=== PATIENT | female | born 1950 | race Caucasian/White ===

== ENCOUNTER → 2018-02-12 16:40 | Outpatient (CLI) | payer BC, SELFPAY ==
--- NOTE | 2018-02-12 16:44 | BI_ITS ---
MAMMOGRAPHY - BILATERAL SCREENING REASON FOR EXAM: Female, 67 years old. Routine annual screening examination. PERTINENT HISTORY: Aunt with breast cancer. Remote right excisional breast biopsies. TECHNIQUE: Digital bilateral breast gerry (3D mammographic acquisition) in the CC and MLO projections. 2-D mediolateral oblique (MLO) and craniocaudad (CC) views of both breasts were obtained. CAD: Full Field Digital Mammography with Computer Added Detection was performed. COMPARISON: Comparison is made with prior study dated June 11, 2016 and April 05, 2015. FINDINGS: Breast Composition: The breasts are heterogeneously dense, which may obscure small masses. There are no dominant masses or suspicious calcifications. No other significant abnormalities are identified. There has been no significant change since the prior study. BI/SCREENING MAMM (CAD), BILAT IMPRESSION: Stable bilateral screening mammogram. Yearly follow-up mammogram recommended. (A) ASSESSMENT CATEGORY: BIRADS Category 1: Negative. A letter regarding these results will be sent to the patient by the facility within 30 days. Approximately 10% of breast cancers are not detected by mammography. A normal mammogram should not delay biopsy of a clinically suspicious abnormality. [id number] Electronically Signed: Evaristo James MD at 14:38 EDT Tel [phone], Service support ,
== END ==
PROVIDERS: Family Provider Family Medicine; PCP Family Medicine; Visit Provider Family Medicine
DX: Z12.31 Encounter for screening mammogram for malignant neoplasm of breast (principal); M81.0 Age-related osteoporosis without current pathological fracture
CPT/HCPCS: 77063; 77067

== ENCOUNTER → 2018-02-25 08:11 | Outpatient (CLI) | payer BC, SELFPAY ==
--- NOTE | 2018-02-25 08:17 | BD_ITS ---
STUDY: DUAL ENERGY X-RAY ABSORPTIOMETRY / DXA REASON FOR EXAM: Female, 67 years old. The patient is postmenopausal. Loss of height. TECHNIQUE: Bone Mineral Density (BMD) measurements of lumbar spine and bilateral hips were obtained. COMPARISON: None. FINDINGS: Lumbar Spine (L1-L4): g/cm2 (1.004) / T-score (-1.3) / Z-score (0.3) Findings are suggestive of osteopenia with a moderate fracture risk. Left Femur Total: g/cm2 (1.108) / T-score (0.8) / Z-score (2.1) Left Femoral Neck: g/cm2 (1.088) / T-score (0.4) / Z-score (1.9) Right Femur Total: g/cm2 (1.171) / T-score (1.3) / Z-score (2.6) Right Femoral Neck: g/cm2 (1.106) / T-score (0.5) / Z-score (2.0) BD/Dexa Bone Density Study IMPRESSION: The patient is considered osteopenic at the level of the lumbar spine as outlined below according to World Ramin Organization (WHO) criteria with a moderate fracture risk. Reference Information: The T-score is the number of standard deviations above or below the standard which is normal for young adults at their peak bone mineral density. The World Health Organization (WHO) interprets the T-scores as follows: Above -1 Normal bone density Between -1 and -2.5 Osteopenia Equal to / or below -2.5 Osteoporosis As a practical clinical guideline, osteopenia may be graded as follows: Mild -1 through -1.5 Moderate -1.6 through -2.0 Severe -2.1 through -2.4 The Z-score is the number of standard deviations above or below age-matched controls. A Z-score of less than -1.5 would be considered abnormal. References: 1. NIH Osteoporosis and Related Bone Diseases http://www.osteo.org 2. International Society for Clinical Densitometry http://www.iscd.org 3. National Osteoporosis Foundation http://www.nof.org Electronically Signed: Evaristo James MD at 12:22 EDT Tel [phone], Service support ,
== END ==
PROVIDERS: Family Provider Family Medicine; PCP Family Medicine; Referring Provider Family Medicine; Visit Provider Family Medicine
DX: M81.0 Age-related osteoporosis without current pathological fracture (principal); M85.88 Other specified disorders of bone density and structure, other site
CPT/HCPCS: 77080

== ENCOUNTER → 2019-03-09 06:51 | Outpatient (CLI) | payer BC, SELFPAY ==
--- NOTE | 2019-03-09 06:54 | BI_ITS ---
MAMMOGRAPHY - BILATERAL SCREENING REASON FOR EXAM: Female, 68 years old. Routine annual screening examination. PERTINENT HISTORY: Aunts with breast cancer. TECHNIQUE: Digital bilateral breast karsten (3D mammographic acquisition) in the CC and MLO projections. 2-D mediolateral oblique (MLO) and craniocaudad (CC) views of both breasts were obtained. CAD: Full Field Digital Mammography with Computer Added Detection was performed. COMPARISON: Comparison is made with prior examination dated February 12, 2018 and January 09, 2017. FINDINGS: Breast Composition: The breasts are heterogeneously dense, which may obscure small masses. There are no dominant masses or suspicious calcifications. No other significant abnormalities are identified. There has been no significant change since the prior study. BI/SCREEN MAMM (CAD) W/KARSTEN BILAT IMPRESSION: Stable bilateral screening mammogram. Yearly follow-up mammogram recommended. (A) ASSESSMENT CATEGORY: BIRADS Category 1: Negative. A letter regarding these results will be sent to the patient by the facility within 30 days. Approximately 10% of breast cancers are not detected by mammography. A normal mammogram should not delay biopsy of a clinically suspicious abnormality. [id number] Electronically Signed: Evaristo James, at 8:59 EST , Service support ,
== END ==
PROVIDERS: Family Provider Family Medicine; PCP Family Medicine; Referring Provider Family Medicine; Visit Provider Family Medicine
DX: Z12.31 Encounter for screening mammogram for malignant neoplasm of breast (principal)
CPT/HCPCS: 77063; 77067

== ENCOUNTER → 2022-03-27 | Outpatient (CLI) | payer MEDICARE, SELFPAY ==
--- NOTE | 2022-03-27 13:35 | BI_ITS ---
MAMMOGRAPHY - BILATERAL SCREENING REASON FOR EXAM: Female, 71 years old. Routine annual screening examination. PERTINENT HISTORY: Aunts with breast cancer. Remote history of right excisional breast biopsies. TECHNIQUE: Digital bilateral breast karsten (3D mammographic acquisition) in the CC and MLO projections. 2-D mediolateral oblique (MLO) and craniocaudad (CC) views of both breasts were obtained. CAD: Full Field Digital Mammography with Computer Added Detection was performed. COMPARISON: 03/09/2019, 02/12/2018. FINDINGS: Breast Composition: The breasts are heterogeneously dense, which may obscure small masses. There are no dominant masses or suspicious calcifications. No other significant abnormalities are identified. There has been no significant change since the prior study. BI/SCRN MAMM (CAD)W/KARSTEN BILAT IMPRESSION: Stable bilateral screening mammogram. Yearly follow-up mammogram recommended. (A) ASSESSMENT CATEGORY: BIRADS Category 1: Negative. A letter regarding these results will be sent to the patient by the facility within 30 days. Approximately 10% of breast cancers are not detected by mammography. A normal mammogram should not delay biopsy of a clinically suspicious abnormality. Electronically Signed: Viktor Rivera, at 16:19 EST ,
== END | disposition home or self-care (01) ==
PROVIDERS: PCP Family Medicine; Visit Provider Family Medicine
DX: Z12.31 Encounter for screening mammogram for malignant neoplasm of breast (principal)
CPT/HCPCS: 77063; 77067

== ENCOUNTER → 2022-06-26 | Outpatient (CLI) | payer MEDICARE, SELFPAY | END | disposition home or self-care (01) | LOC: BFHLAB 15:21 → LAB.FUTURE 16:03 | PROVIDERS: PCP Family Medicine; Visit Provider Family Medicine | DX: R69 Illness, unspecified (principal) ==

== ENCOUNTER → 2022-06-28 | Outpatient (CLI) | payer MEDICARE, SELFPAY ==
[2022-06-28 14:54] LABS: Absolute Lymphocyte Count 2.85 X10^3/uL (0.83-4.51); Absolute Neutrophil Count 4.1 X10^3/uL (2.0-7.7); Basophil# 0.06 X10^3/uL; Basophil% 0.8 % (0-1); Eosinophil# 0.22 X10^3/uL; Eosinophils% 2.8 % (0-5); Hematocrit 44.3 % (37-47); Hemoglobin 13.8 g/dL (12.0-15.0); Lymphocyte # 2.85 X10^3/ul (0.83-4.51); Lymphocyte % 35.7 % (19-41); Mean Corp Hgb Conc 31.2 g/dL (32-36); Mean Corpuscular Volume 102.8 fL (81-99); Mean Platelet Vol. 10.8 fl (6.2-12.0); Monocyte# 0.77 X10^3/uL; Monocyte% 9.6 % (0-10); NRBC Flagged by Analyzer 0 % (0-5); Neutrophil # 4.06 X10^3/uL (2.7-7.7); Neutrophil % 50.7 % (47-70); Platelet Count 235 K/mm3 (150-450); RBC Distribution Width SD 49.7 fl (35.1-43.9); Red Blood Count 4.31 M/mm3 (4.2-5.4)
[2022-06-28 15:28] LABS: ALB/GLOB Ratio 1.3 RATIO (0.9-2.4); AST(SGOT) 29 U/L (15-37); Alanine Aminotransfer ALT/SGPT 44 U/L (13-56); Alkaline Phosphatase 66 U/L (45-117); Anion Gap 6 (5-15); BUN 24 mg/dL (7-18); BUN/Creat Ratio 23.1 RATIO (10-20); Calcium,Total 9.5 mg/dL (8.5-10.1); Chloride 102 mmol/L (98-107); Cholesterol 207 mg/dL (200); Creatinine, Serum 1.04 mg/dL (0.55-1.02); EST Glomerular Filtration Rate 56 mL/min (>60); Est Glom Filt Rate - Afr Amer 67 mL/min (>60); Glucose 115 mg/dL (74-106); High Density Lipoprotein 53 mg/dL; Potassium 4.8 mmol/L (3.5-5.1); Sodium Level 137 mmol/L (136-145); Triglycerides 265 mg/dL; Very Low Density Lipoprotein 53 mg/dL (5-40)
== END | disposition home or self-care (01) ==
LOC: LAB 14:04
PROVIDERS: PCP Family Medicine; Visit Provider Family Medicine
DX: Z13.220 Encounter for screening for lipoid disorders (principal); Z51.81 Encounter for therapeutic drug level monitoring; E78.5 Hyperlipidemia, unspecified
CPT/HCPCS: 36415; 80053; 80061; 85025

== ENCOUNTER → 2022-07-02 | Outpatient (CLI) | payer MEDICARE, SELFPAY ==
--- NOTE | 2022-07-02 12:45 | EKG12_ITS ---
Test Reason : PRE OP Blood Pressure : / mmHG Vent. Rate : 057 BPM Atrial Rate : 108 BPM P-R Int : 000 ms QRS Dur : 086 ms QT Int : 440 ms P-R-T Axes : 000 011 064 degrees QTc Int : 428 ms Junctional rhythm Low voltage QRS Incomplete right bundle branch block Abnormal ECG Confirmed by VALERI WALSH, RHYS ([id number]), fan mail editor WILLIAM MONDRAGON ([id number]) on 07/03/2022 10:21:42 AM Referred By: Pio Broderick Confirmed By:RHYS TRAMMELL MD
[2022-07-02 13:21] LABS: Hematocrit 40.3 % (37-47); Hemoglobin 13.2 g/dL (12.0-15.0); Mean Corp Hgb Conc 32.8 g/dL (32-36); Mean Corpuscular Hgb 32.1 pg (27.0-32.0); Mean Corpuscular Volume 98.1 fL (81-99); Mean Platelet Vol. 10.4 fl (6.2-12.0); Platelet Count 212 K/mm3 (150-450); RBC Distribution Width CV 12.8 % (11.6-14.6); RBC Distribution Width SD 46.4 fl (35.1-43.9); Red Blood Count 4.11 M/mm3 (4.2-5.4); White Blood Count 6.7 K/mm3 (4.4-11.0)
[2022-07-02 13:51] LABS: Anion Gap 8 (5-15); BUN 18 mg/dL (7-18); BUN/Creat Ratio 16.2 RATIO (10-20); Calcium,Total 9.3 mg/dL (8.5-10.1); Chloride 102 mmol/L (98-107); Creatinine, Serum 1.11 mg/dL (0.55-1.02); EST Glomerular Filtration Rate 52 mL/min (>60); Est Glom Filt Rate - Afr Amer 62 mL/min (>60); Glucose 199 mg/dL (74-106); Sodium Level 137 mmol/L (136-145)
== END | disposition home or self-care (01) ==
LOC: PSN 12:43
PROVIDERS: PCP Family Medicine; Referring Provider Orthopaedic Surgery; Visit Provider Orthopaedic Surgery
DX: Z01.810 Encounter for preprocedural cardiovascular examination (principal); Z01.812 Encounter for preprocedural laboratory examination; Z01.811 Encounter for preprocedural respiratory examination
CPT/HCPCS: 36415; 80048; 85027; 93005

== ENCOUNTER 2022-07-18 17:57 | Emergency (ER) | payer MEDICARE, SELFPAY ==
[2022-07-18 17:59] VITALS: BP 173/68; PULSE 102; RESP 20; TEMP 37.1; O2SAT 96; BMI 32.6
[2022-07-18] MEDS: Ondansetron 4 MG/2 ML Vial IV (18:10)
[2022-07-18] MEDS: 0.9% Normal Saline 1,000 ML 999 ML IV (18:10)
[2022-07-18 18:11] VITALS: BP 173/68; PULSE 92; RESP 16; O2SAT 96
--- NOTE | 2022-07-18 18:29 | ED.RN ---
PATIENT HAS VISITOR AT BEDSIDE. ANOTHER VISITOR AT ED. BOTH VISITORS UPSET WITH VISITATION POLICY. CHARGE NURSE, ROYER INFORMED. PATIENTS SECOND VISITOR A MALE WHO TOOK PATIENTS KEYS TO ATTEMPT TO GET INTO HER HOUSE TO FIND HER CELL PHONE. BOTH VISITORS UNSURE OF PATIENTS SONS NAME OR CONTACT INFORMATION. ALSO UNSURE WHERE PATIENT LIVES. PATIENT HAS SON LISTED PERSON TO NOTIFY-MYRNA. THE MALE VISITOR STATES SHE DOES NOT HAVE A SON NAME MYRNA.
[2022-07-18 18:58] VITALS: BP 144/56; PULSE 81; RESP 17; O2SAT 99
[2022-07-18 19:00] VITALS: BP 135/60; PULSE 81; RESP 19; O2SAT 95
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
[2022-07-18 19:19] LABS: Anion Gap 12 (5-15); BUN 18 mg/dL (7-18); BUN/Creat Ratio 17.3 RATIO (10-20); Calcium,Total 8.9 mg/dL (8.5-10.1); Chloride 103 mmol/L (98-107); Creatinine, Serum 1.04 mg/dL (0.55-1.02); EST Glomerular Filtration Rate 56 mL/min (>60); Est Glom Filt Rate - Afr Amer 67 mL/min (>60); Estimated Creatinine Clearance 48.25 ml/min; Glucose 206 mg/dL (74-106); Potassium 3.2 mmol/L (3.5-5.1); Sodium Level 137 mmol/L (136-145)
[2022-07-18 19:20] LABS: Amphetamine Urine VISTA NEGATIVE (<1000 ng/mL); Barbiturate Urine VISTA NEGATIVE (< 200 ng/mL); Benzodiazepine Urine VISTA NEGATIVE (< 200 ng/mL); Cocaine Urine VISTA NEGATIVE (< 300 ng/mL); Ecstacy Urine VISTA NEGATIVE (< 500 ng/mL); Methadone Urine VISTA NEGATIVE (< 300 ng/mL); PCP Urine VISTA NEGATIVE (< 25 ng/mL); THC Urine VISTA NEGATIVE (< 50 ng/mL); Vista UDS pH Range 5
[2022-07-18 20:00] VITALS: RESP 18
== END 2022-07-18 21:06 | disposition home or self-care (01) ==
PROVIDERS: Physician Assistant; Emergency Provider Emergency Medicine; PCP Family Medicine; Visit Provider Emergency Medicine
DX: F10.129 Alcohol abuse with intoxication, unspecified (principal); Z79.899 Other long term (current) drug therapy
CPT/HCPCS: 80048; 80307; 82077; 96361; 96374; 99285; J7030; J7040; A4216; J2405

== ENCOUNTER → 2023-04-02 | Outpatient (CLI) | payer MEDICARE, SELFPAY ==
--- NOTE | 2023-04-02 14:02 | BI_ITS ---
MAMMOGRAPHY - BILATERAL SCREENING REASON FOR EXAM: Female, 72 years old. Routine annual screening examination. PERTINENT HISTORY: Aunts with breast cancer. Remote right excisional breast biopsies. TECHNIQUE: Digital bilateral breast karsten (3D mammographic acquisition) in the CC and MLO projections. 2-D mediolateral oblique (MLO) and craniocaudad (CC) views of both breasts were obtained. CAD: Full Field Digital Mammography with Computer Added Detection was performed. COMPARISON: Comparison is made with prior study dated March 27, 2022 and March 09, 2019. FINDINGS: Breast Composition: The breasts are heterogeneously dense, which may obscure small masses. There are no dominant masses or suspicious calcifications. Stable bilateral fat containing axillary lymph nodes. No other significant abnormalities are identified. There has been no significant change since the prior study. BI/SCRN MAMM (CAD)W/KARSTEN BILAT IMPRESSION: Stable bilateral screening mammogram. Yearly follow-up mammogram recommended. (A) ASSESSMENT CATEGORY: BIRADS Category 2: Benign. A letter regarding these results will be sent to the patient by the facility within 30 days. Approximately 10% of breast cancers are not detected by mammography. A normal mammogram should not delay biopsy of a clinically suspicious abnormality. [id number] Electronically Signed: Evaristo James MD at 11:02 EST ,
== END | disposition home or self-care (01) ==
LOC: OPBI 14:01
PROVIDERS: PCP Family Medicine; Referring Provider Family Medicine; Visit Provider Family Medicine
DX: Z12.31 Encounter for screening mammogram for malignant neoplasm of breast (principal)
CPT/HCPCS: 77063; 77067

== ENCOUNTER 2023-07-21 14:00 | Emergency (ER) | payer MEDICARE, SELFPAY ==
[2023-07-21 14:02] VITALS: BP 132/71; PULSE 60; RESP 14; TEMP 35.8; O2SAT 99; BMI 32.9
--- NOTE | 2023-07-21 14:22 | CT_ITS ---
STUDY: CT BRAIN WITHOUT CONTRAST REASON FOR EXAM: Female, 73 years old. Facial injury due to a fall. RADIATION DOSAGE (If Supplied By Facility): CTDIvol = ( 44.99 ) mGy, DLP = ( 1441.24 ) mGycm TECHNIQUE: Transaxial CT imaging of the brain was performed without administration of intravenous contrast material. Individualized dose optimization techniques were used for this CT. COMPARISON: No relevant priors. FINDINGS: Soft tissue swelling overlying the right orbital region with the air within the soft tissues. There is hyperostosis frontalis internus. There is mild cerebral atrophy with widening of the extra-axial spaces and ventricular dilatation. Normal white matter tracts of the cerebral hemispheres. Normal basal ganglia and thalami. Normal brainstem. Normal cerebellum. There is no intracranial hemorrhage. There are no findings of an acute ischemic infarction. Air-fluid level in the right maxillary sinus. There is evidence of a depressed fracture of the floor of the right orbit. CT/Brain/Head without Contrast IMPRESSION: Chronic involutional changes of the brain. Right orbital floor fracture with depression. Partial opacification of the right maxillary sinus. Preorbital soft tissue swelling. Air is seen overlying the soft tissues. Electronically Signed: Evaristo James MD at 14:56 EDT ,
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
--- NOTE | 2023-07-21 14:23 | EDS_ITS ---
HPI History of Present Illness Chief Complaint: Head Injury Informant: patient and friend Narrative Narrative: 73-year-old female was leaving lunch today when she tripped over a concrete parking bumper. She fell forward striking her face on the ground. She notes abrasions to the palm of her right hand and chin. She notes swollen right periorbital region and laceration to the mid forehead. Patient denies loss of consciousness. She denies any neck pain or back pain. No chest or abdominal symptoms. No leg symptoms. Last tetanus greater than 10 years ago. She denies being on any anticoagulant. No change in vision of the right eye. She specifically denies any diplopia or loss of vision. She denies dental trauma. Tetanus Immunization: >10 years PFSH PFSH Home Medications cholecalciferol (vitamin D3) 10 mcg (400 unit) capsule (Vitamin D3) 400 unit PO DAILY 04/10/15 [History Last Taken Unknown] citalopram 10 mg tablet 40 mg PO DAILY 04/10/15 [History Last Taken Unknown] melatonin 10 mg tablet,extended release 10 mg PO DAILY 04/10/15 [History Last Taken Unknown] darifenacin 15 mg tablet,extended release 24 hr 15 mg PO DAILY 07/18/22 [History Last Taken Unknown] estradiol 0.01% (0.1 mg/gram) vaginal cream See Rx Instructions .Route .COMPLEX 07/18/22 [History Last Taken Unknown] meloxicam 15 mg tablet 15 mg PO BID 07/18/22 [History Last Taken Unknown] nitrofurantoin monohydrate/macrocrystals 100 mg capsule 1 cap PO DAILY 07/18/22 [History Last Taken Unknown] amoxicillin 875 mg-potassium clavulanate 125 mg tablet 1 tab PO BID 7 days #14 tabs 07/21/23 [Rx Last Taken Unknown] oxycodone-acetaminophen 5 mg-325 mg tablet 1 tab PO Q6H PRN PRN Pain 3 days #12 TABLETS 07/21/23 [Rx Last Taken Unknown] Allergy/AdvReac Type Severity Reaction Status Date / Time Sulfa (Sulfonamide Allergy Other Verified 04/10/15 07:55 Antibiotics) Surgical History H/O medial meniscus repair of right knee Social History Smoking Status: Never smoker ROS ROS ED Constitutional Constitutional ED: Denies chills or weight loss Eyes Eyes: Denies blurry vision, change in vision or diplopia ENT ENT ED: Reports other Details: Chin abrasions jaw soreness right periorbital contusion and swelling forehead laceration ; Denies ear pain, rhinorrhea or sore throat Cardiovascular Cardiovascular: Denies chest pain, orthopnea, palpitations or racing heartbeat Respiratory/Chest Respiratory/Chest: Denies cough, dyspnea or orthopnea Gastrointestinal Gastrointestinal: Denies abdominal pain, diarrhea, nausea or vomiting Genitourinary Genitourinary ED: Denies dysuria, hematuria or urinary frequency Musculoskeletal Musculoskeletal: Denies arthralgias, back pain, myalgias or neck pain Integumentary Reports Abrasions and other Details: See history of present illness ; Denies abscess or rash Neurologic Neurologic: Denies headache(s) or weakness Psychiatric Psychiatric: Denies anxiety, depression, suicidal ideation or suicidal thoughts Endocrine Endocrinology: Denies polydipsia, polyphagia or polyuria Allergic/Immunologic Allergic/Immunologic ED: Denies mouth swelling, tongue swelling or urticaria EXAM Physical Exam Const Vital Signs: 07/21/23 14:02 07/21/23 14:05 07/21/23 16:15 Temperature 96.4 F L Temperature Source Temporal Pulse Rate 60 Respiratory Rate 14 Respiratory Effort Normal Non-Labored Blood Pressure 132/71 H 140/52 H Blood Pressure Mean 91 75 Pulse Ox 99 100 Oxygen Delivery Method Room Air 07/21/23 16:30 07/21/23 16:40 07/21/23 17:19 Temperature 98.3 F Temperature Source Pulse Rate 62 Respiratory Rate 16 Respiratory Effort Blood Pressure 100/86 H 126/62 H Blood Pressure Mean 92 83 Pulse Ox 100 100 Oxygen Delivery Method Positive well nourished and well developed General Appearance ED: well developed HEENT Reports normocephalic and moist mucous membranes HEENT Narrative: Right periorbital contusion and swelling. She is able to still open the eye at this point. I do not see any globe trauma. No subconjunctival hemorrhage or hyphema. There is a 1.5 cm linear laceration just to the right of the right eyebrow. It is gaping. There is a chin abrasion and contusion noted. No intraoral trauma noted. No septal hematoma noted. Eyes PERRL and EOMs intact bilaterally General Eye ED: Yes other Other Details: I do not see any obvious evidence of entrapment. Neck no lymphadenopathy, supple and no JVD Resp normal respiratory effort and clear to auscultation bilaterally Cardio regular rate, regular rhythm and no murmurs GI normal to inspection, nondistended, normoactive bowel sounds and non-tender Palpation: soft Back/Spine no CVA tenderness and normal ROM Extremity normal to inspection General Extremety ED: Negative for edema General Extremity: Negative for edema Neuro oriented x3 and CN's II-XII intact bilaterally Sensorium / Orientation: alert Motor Exam: strength 5/5 throughout Psych mental status grossly normal Mood & Affect: Negative for depressed or tearful Skin no rashes or lesions noted Skin Narrative: Abrasion to the right palm at the base of the thenar eminence no bony pain with movement. MDM MDM MDM Narrative Medical decision making narrative: Patient sneezed and had increased pain in the right side of her face. CT of the brain shows no intracranial hemorrhage. CT of the facial bones demonstrates a depressed inferior orbital wall fracture on the right with soft tissue in the fracture but no obvious muscle belly. There is a small amount of air retro- orbital. Repeat examination shows no ptosis. Extraocular motions continue to be intact. Patient began to complain of some pain just underneath her right breast. It was tender to palpation. I did not appreciate any crepitance but there was point tenderness near the costochondral border. CT of the chest does not demonstrate any obvious rib fracture costochondral separation pneumothorax or effusion. She received Ultram for pain as she takes this at home. Wound was locally anesthetized using let and then 1% lidocaine. Wound was washed with Shur-Clens irrigated and explored. It was closed using 3 simple erupted 5-0 Vicryl sutures. I spoke locally with plastic surgery who states that they do not handle these types of fractures and that she would be best by following up with plastics in [place]. I did provide her [facility] plastic surgery number. However she may choose any plastic surgeon in the [place] area and call them to see if they handle this type of fracture. She was given return instructions. She is asked for some pain medicine beyond Ultram at home should she need it. I wrote for a few Percocet. Her tetanus was updated with Adacel. She was advised not to drive. She was also advised not to wear CPAP at night and to avoid sneezing or blowing her nose. Her other abrasions were washed and dressed. I will place the patient on Augmentin prophylactically. History & Record Review Discussion w/independent historian: Patient, Family and Friend Additional record(s) reviewed:: Prior inpatient record Radiography Diagnostic Testing: Clinical Impression(s) from Imaging Studies Brain CT 07/21/23 14:22 IMPRESSION: Chronic involutional changes of the brain. Right orbital floor fracture with depression. Partial opacification of the right maxillary sinus. Preorbital soft tissue swelling. Air is seen overlying the soft tissues. Electronically Signed: Evaristo James MD at 14:56 EDT , Facial/Sinus 07/21/23 14:22 IMPRESSION: Depressed right orbital floor fracture with partial opacification of the right maxillary sinus and mucosal thickening of the right ethmoid sinus. Overlying soft tissue swelling with air in the soft tissues Electronically Signed: Evaristo James MD at 14:58 EDT , Chest CT 07/21/23 16:08 IMPRESSION: Minimal subsegmental atelectasis at the right base.. Mild ASHD. Electronically Signed: Sabas Maldonado MD at 17:09 EDT , Management Discussion w/another healthcare provider: Histology Aide (Plastic Surgery) Discharge Plan Triage Chief Complaint: Head Injury Other Complaint: Fall ED Provider: Joon Cleveland Dx/Rx/DC Orders Clinical Impression: Abrasion of chin, Facial laceration, Head injury, Fracture of orbital floor, Contusion of periorbital region, right, Abrasion of hand, right, Chest wall contusion Instructions: After a Concussion, Facial Fracture, ED Chest Wall Contusion Prescriptions: New oxycodone-acetaminophen [oxycodone-acetaminophen] 5-325 mg tablet 1 tab PO Q6H PRN PRN (Reason: Pain) 3 Days Qty: 12 0RF amoxicillin-pot clavulanate 875-125 mg tablet 1 tab PO BID 7 Days Qty: 14 0RF No Action citalopram 10 MG tablet 40 mg PO DAILY cholecalciferol (vitamin D3) [Vitamin D3] 400 UNIT capsule 400 unit PO DAILY melatonin 10 MG tablet extended release 10 mg PO DAILY meloxicam 15 mg tablet 15 mg PO BID Patient Comments: TAKE 1 TABLET BY MOUTH EVERY DAY estradiol 0.01 % (0.1 mg/gram) cream See Rx Instructions .ROUTE .COMPLEX Patient Comments: USE 1 GRAM VAGINALLY 3 TIMES WEEKLY Rx Instructions: 1 applic vaginally 3x/week nitrofurantoin monohyd/m-cryst 100 mg capsule 1 cap PO DAILY Patient Comments: TAKE 1 CAPSULE BY MOUTH TWICE A DAY darifenacin 15 mg tablet extended release 24 hr 15 mg PO DAILY Patient Comments: TAKE 1 TABLET BY MOUTH EVERY DAY Primary Care Provider: Jennifer Sewell Referrals: Jennifer Sewell DO [Primary Care Provider] - Activity Restrictions/Additional Instructions: You need to see plastic surgery. I would try calling [facility] plastic surgery at [phone] If you experience double vision or change in vision or having change in eye pain please return to emergency department Disposition Disposition: Home, Self Care Discharge Date/Time: 07/21/23 17:30
[2023-07-21] MEDS: Lidocaine/Epi/Tetracaine 50 ML 1 APPLIC TOPICAL (14:54)
[2023-07-21] MEDS: Diphth,Pertuss(Acell),Tet Vac 0.5 ML Vial IM (15:03)
--- NOTE | 2023-07-21 16:08 | CT_ITS ---
INDICATION: rib truam mid right chest EXAMINATION: CT CHEST WITHOUT CONTRAST - CT Chest W/O Contrast Injection TECHNIQUE: Helically acquired images were obtained of the chest. A radiation dose optimization technique was used for this scan. IV Contrast dosage and agent: None. COMPARISON: None. FINDINGS: LUNGS, PLEURA AND LARGE AIRWAYS: Minimal subsegmental atelectasis at the right base. No pleural effusion or thickening. No pneumothorax. THYROID: No thyroid lesions. HEART AND PERICARDIUM: Heart size is normal. Small pericardial effusion.. CORONARY ARTERIES: No coronary artery calcification VESSELS: Mild atherosclerotic change of the aorta without evidence for aneurysm. MEDIASTINUM AND PEYMAN: No mediastinal or hilar adenopathy. Esophagus is unremarkable. No hiatal hernia. UPPER ABDOMEN: Gallbladder has been removed surgically BONES: Dorsal spine demonstrates degenerative changes. No suspicious lytic or blastic abnormality. No acute fracture identified CT/Chest without Contrast IMPRESSION: Minimal subsegmental atelectasis at the right base.. Mild ASHD. Electronically Signed: Sabas Maldonado MD at 17:09 EDT Reading Location ID and State: [address] [place] [address] Tel , Service support ,
[2023-07-21] MEDS: Lidocaine 1% (20 ml mdv) 20 ML Vial INFILT (16:12)
[2023-07-21 16:15] VITALS: BP 140/52; O2SAT 100
[2023-07-21 16:30] VITALS: BP 100/86
[2023-07-21] MEDS: traMADol 50 MG Tablet PO (16:31)
[2023-07-21 16:40] VITALS: O2SAT 100
[2023-07-21 17:19] VITALS: BP 126/62; PULSE 62; RESP 16; TEMP 36.8; O2SAT 100
== END 2023-07-21 17:30 | disposition home or self-care (01) ==
PROVIDERS: Emergency Provider Emergency Medicine; PCP Family Medicine; Visit Provider Emergency Medicine
DX: S02.31XA Fracture of orbital floor, right side, initial encounter for closed fracture (principal); S01.81XA Laceration without foreign body of other part of head, initial encounter; S60.511A Abrasion of right hand, initial encounter; S05.11XA Contusion of eyeball and orbital tissues, right eye, initial encounter; S20.20XA Contusion of thorax, unspecified, initial encounter; W19.XXXA Unspecified fall, initial encounter
CPT/HCPCS: 12011; 70450; 70486; 71250; 90715; 99283

== ENCOUNTER 2025-02-12 14:57 | Emergency (ER) | payer MEDICARE, SELFPAY ==
[2025-02-12 14:59] VITALS: BP 130/55; PULSE 70; RESP 18; TEMP 36.3; O2SAT 99
[2025-02-12 15:04] VITALS: BMI 28.3
--- NOTE | 2025-02-12 15:57 | ED.VIS.LOWEX ---
HPI History of Present Illness HPI Narrative: Patient presents with left knee injury that occurred yesterday. Patient states she twisted her knee and then stepped down hard. Patient states the pain is mainly over the posterior aspect of her knee. Patient describes it as stabbing. Patient states it is worse with bending and better with rest. Patient admits to some tingling in her knee. Patient is unsure if she heard a snapping or popping sensation. Patient denies any weakness. Chief Complaint: Lower Extremity Injury Informant: patient Occured/Mechanism Comment: Twisted and stepped down hard on her knee Onset/Context/Timing Onset: Yesterday Context: Sudden Onset Timing: Continuous Quality of Pain: Stabbing Location: Left knee Worsened by: Bending Relieved by: Rest Associated Symptoms Associated Symptoms: Positive for Parasthesia; Negative for Weakness or Loss of Funtion PFSH PFSH Medical History no medical history no medical history Home Medications ?Medication ?Instructions ?Recorded ?Last Taken ?Type cholecalciferol (vitamin D3) 10 400 unit PO DAILY 04/10/15 Unknown History mcg (400 unit) capsule (Vitamin D3) citalopram 10 mg tablet 40 mg PO DAILY 04/10/15 Unknown History melatonin 10 mg tablet,extended 10 mg PO DAILY 04/10/15 Unknown History release darifenacin 15 mg tablet,extended 15 mg PO DAILY 07/18/22 Unknown History release 24 hr estradiol 0.01% (0.1 mg/gram) See Rx Instructions .Route .COMPLEX 07/18/22 Unknown History vaginal cream meloxicam 15 mg tablet 15 mg PO BID 07/18/22 Unknown History nitrofurantoin 1 cap PO DAILY 07/18/22 Unknown History monohydrate/macrocrystals 100 mg capsule amoxicillin 875 mg-potassium 1 tab PO BID 7 days #14 tabs 07/21/23 Unknown Rx clavulanate 125 mg tablet oxycodone-acetaminophen 5 mg-325 1 tab PO Q6H PRN PRN Pain 3 days 07/21/23 Unknown Rx mg tablet #12 TABLETS Allergy/AdvReac Type Severity Reaction Status Date / Time Sulfa (Sulfonamide Allergy Other Verified 02/12/25 14:59 Antibiotics) Surgical History (Updated 02/12/25 @ 17:[address] Jose Howell, DO) Hx of cholecystectomy Hx of tonsillectomy Hx of bursectomy H/O medial meniscus repair of right knee Social History housing: house Smoking Status: Never smoker ROS ROS ED Constitutional Constitutional ED: Denies chills or fever(s) Eyes Eyes: Denies blurry vision or change in vision ENT ENT ED: Denies rhinorrhea or sore throat Cardiovascular Cardiovascular: Denies chest pain or palpitations Respiratory/Chest Respiratory/Chest: Denies cough or dyspnea Gastrointestinal Gastrointestinal: Denies nausea or vomiting Genitourinary Genitourinary ED: Denies dysuria or hematuria Musculoskeletal Musculoskeletal: Denies back pain or neck pain Integumentary Denies abscess or rash Neurologic Neurologic: Denies headache(s) or weakness Allergic/Immunologic Allergic/Immunologic ED: Denies mouth swelling or urticaria EXAM Physical Exam Const Vital Signs: 02/12/25 14:59 Temperature 97.3 F L Temperature Source Temporal Pulse Rate 70 Respiratory Rate 18 Blood Pressure 130/55 H Blood Pressure Mean 80 Pulse Ox 99 Oxygen Delivery Method Room Air Positive well nourished and well developed General Appearance ED: well developed and NAD HEENT Reports moist mucous membranes normocephalic and atraumatic Neck full ROM Extremity Extremity Narrative: There is tenderness over the left knee. There is a mild edema. There is no deformity noted. There is a mild effusion noted. Range of motion was limited in flexion of the left knee secondary to pain. There is no laxity appreciated. Varus and valgus stress test were negative. Rhett's test was negative. There is minimal pain with Lisa testing. Sensation was intact to light touch bilaterally in lower extremities. Strength is 5/5 bilaterally in the lower extremities. Extensor mechanism is intact. Neuro oriented x3, CN's II-XII intact bilaterally, moves all extremities and no sensory deficits noted Sensorium / Orientation: alert Motor Exam: strength 5/5 throughout Psych mental status grossly normal MDM MDM MDM Narrative Medical decision making narrative: Differential diagnosis includes fracture, sprain, meniscus injury, and effusion. X-rays of the left knee will be obtained to assess for fracture. Radiography Diagnostic Testing: X-rays of the left knee were obtained. There are 4 views. On my independent interpretation, there is no acute fracture. There is some mild degenerative changes noted. There is a small effusion noted. Radiologist also interpreted the x-ray and agrees. Treatment and Re-Evaluation Narrative: Patient was advised of her findings. Patient was instructed to ice and elevate the left knee. Patient states that she has meloxicam at home and has also been taking Tylenol which has been helping. Patient was instructed to follow-up with her primary care physician in 5 to 7 days. Patient was also instructed to follow-up with orthopedics in 5 to 7 days. Patient understood and was agreeable with the plan. All questions were answered. Discharge Plan Triage Chief Complaint: Lower Extremity Injury ED Provider: Jose Howell Dx/Rx/DC Orders Clinical Impression: Knee pain, left, Elevated blood pressure reading Instructions: ED Meniscal Injury Knee Poss, ED Knee Sprain Prescriptions: No Action citalopram 10 MG tablet 40 mg PO DAILY cholecalciferol (vitamin D3) [Vitamin D3] 400 UNIT capsule 400 unit PO DAILY melatonin 10 MG tablet extended release 10 mg PO DAILY meloxicam 15 mg tablet 15 mg PO BID Patient Comments: TAKE 1 TABLET BY MOUTH EVERY DAY estradiol 0.01 % (0.1 mg/gram) cream See Rx Instructions .ROUTE .COMPLEX Patient Comments: USE 1 GRAM VAGINALLY 3 TIMES WEEKLY Rx Instructions: 1 applic vaginally 3x/week nitrofurantoin monohyd/m-cryst 100 mg capsule 1 cap PO DAILY Patient Comments: TAKE 1 CAPSULE BY MOUTH TWICE A DAY darifenacin 15 mg tablet extended release 24 hr 15 mg PO DAILY Patient Comments: TAKE 1 TABLET BY MOUTH EVERY DAY oxycodone-acetaminophen [oxycodone-acetaminophen] 5-325 mg tablet 1 tab PO Q6H PRN PRN (Reason: Pain) 3 Days Qty: 12 0RF amoxicillin-pot clavulanate 875-125 mg tablet 1 tab PO BID 7 Days Qty: 14 0RF Primary Care Provider: Jennifer Sewell Referrals: Jennifer Sewell DO [Primary Care Provider, Family Practice] - 5-7 Days Sukumar Benjamin DO [Med Staff - Active Staff, Orthopedics] - 5-7 Days Print Language: St Helen[place] Disposition Disposition: Home, Self Care Discharge Date/Time: 02/12/25 17:15
--- NOTE | 2025-02-12 16:00 | RAD_ITS ---
PROCEDURE: KNEE 4 OR MORE VIEWS 02/12/2025 REASON FOR EXAM: INJURY/PAIN TECHNIQUE: Procedure Code: RADKN Modality: DX Procedure: KNEE 4 OR MORE VIEWS Laterality: Left COMPARISON: None FINDINGS: No displaced fracture or traumatic malalignment. There is a small knee joint effusion. Bone mineral density is subjectively normal. There is moderate joint space narrowing which is most pronounced in the lateral compartment. RAD/Knee 4 or More Views IMPRESSION: No acute osseous abnormality of the left knee. Moderate osteoarthritis. Reading Location: [facility]
[2025-02-12 17:15] VITALS: BP 127/80; PULSE 70; RESP 18; TEMP 36.3; O2SAT 99
== END 2025-02-12 17:15 | disposition home or self-care (01) ==
PROVIDERS: Emergency Provider Emergency Medicine; PCP Family Medicine; Visit Provider Emergency Medicine
DX: M25.562 Pain in left knee (principal); R03.0 Elevated blood-pressure reading, without diagnosis of hypertension
CPT/HCPCS: 73564; 99282

== ENCOUNTER 2025-04-12 21:22 | Emergency (ER) | payer MEDICARE, SELFPAY ==
[2025-04-12 21:23] VITALS: BP 191/66; PULSE 85; RESP 20; TEMP 36.6; O2SAT 97; BMI 29.9
--- NOTE | 2025-04-12 21:28 | ED.RN ---
Patients Armin ortega updated that patient is in ED. states he will be on his way
--- NOTE | 2025-04-12 21:38 | EX.ED.SAOD ---
HPI History of Present Illness Chief Complaint: ETOH Intox Narrative Narrative: Patient is a 74-year-old female presenting to the emergency department for alcohol intoxication. Patient has a history of this. She was at the bar and reports drinking a lot, she was reportedly cut off by the hospital nurse liaison. They report that she drank 3 double [employer] and soda. Patient was reportedly walking around acting strange. EMS was called. Patient denies any other drug use. She denies any pain. PFSH PFSH Home Medications ?Medication ?Instructions ?Recorded ?Last Taken ?Type cholecalciferol (vitamin D3) 10 400 unit PO DAILY 04/10/15 Unknown History mcg (400 unit) capsule (Vitamin D3) citalopram 10 mg tablet 40 mg PO DAILY 04/10/15 Unknown History melatonin 10 mg tablet,extended 10 mg PO DAILY 04/10/15 Unknown History release darifenacin 15 mg tablet,extended 15 mg PO DAILY 07/18/22 Unknown History release 24 hr estradiol 0.01% (0.1 mg/gram) See Rx Instructions .Route .COMPLEX 07/18/22 Unknown History vaginal cream meloxicam 15 mg tablet 15 mg PO BID 07/18/22 Unknown History nitrofurantoin 1 cap PO DAILY 07/18/22 Unknown History monohydrate/macrocrystals 100 mg capsule amoxicillin 875 mg-potassium 1 tab PO BID 7 days #14 tabs 07/21/23 Unknown Rx clavulanate 125 mg tablet oxycodone-acetaminophen 5 mg-325 1 tab PO Q6H PRN PRN Pain 3 days 07/21/23 Unknown Rx mg tablet #12 TABLETS Allergy/AdvReac Type Severity Reaction Status Date / Time Sulfa (Sulfonamide Allergy Other Verified 04/12/25 21:23 Antibiotics) Surgical History Hx of cholecystectomy Hx of tonsillectomy Hx of bursectomy H/O medial meniscus repair of right knee Social History housing: house Smoking Status: Never smoker ROS ROS ED ROS Narrative obtained from EMS due to mental status EXAM Physical Exam Narrative Exam Narrative: Vital signs: Reviewed General: Alert and oriented x 2, disoriented to time. Clinically intoxicated, slurring speech, rocking around in bed. HEENT: Head is normocephalic and atraumatic, sinuses nontender, pupils equal round and reactive. Extraocular movements intact. Nares are patent. Oropharynx and throat exams normal. Dried vomit around the mouth. Neck: Supple without lymphadenopathy nontender Cardiovascular: Regular rate and rhythm, no murmurs. No rubs or gallops. Normal S1 and S2 Respiratory: Clear to auscultation bilaterally. No wheezes, rales, rhonchi Abdominal: Soft and nontender. Normal bowel sounds. No guarding or rebound. Nonsurgical abdomen Extremities: No tenderness. No bruising. Normal range of motion. Normal sensation. Skin: No rash or redness. Neurological: Follows commands intermittently. Moving all extremities. The rest of the physical exam is unremarkable Const Vital Signs: 04/12/25 21:23 04/12/25 21:23 04/12/25 21:53 Temperature 97.9 F Temperature Source Oral Oral Pulse Rate 85 76 Respiratory Rate 20 H 18 Blood Pressure 191/66 H 127/61 H Blood Pressure Mean 107 83 Blood Pressure Source Monitor Blood Pressure Position Semi-Fowlers Blood Pressure Location Right Arm Pulse Ox 97 98 Oxygen Delivery Method Room Air Oxygen Flow Rate (L/min) 04/12/25 22:45 04/12/25 22:47 Temperature Temperature Source Pulse Rate Respiratory Rate Blood Pressure Blood Pressure Mean Blood Pressure Source Blood Pressure Position Blood Pressure Location Pulse Ox 86 94 Oxygen Delivery Method Room Air Nasal Cannula Oxygen Flow Rate (L/min) 2 MDM MDM MDM Narrative Medical decision making narrative: Patient is a 74-year-old female presenting to the emergency department for alcohol intoxication. Patient was seen and examined. Vitals are stable. Patient is clinically intoxicated, rocking around in bed. Will intermittently follow commands. Patient is alert and orientedx2, moving all extremities, intermittently following commands. I do not think she requires CT brain at this time. No focal neurologic deficits. Will obtain lab work and sober reeval. Will give fluids and Zofran. Labs are unremarkable. No leukocytosis and normal hemoglobin. BMP with some mild dehydration, notable liver enzymes. Glucose of 154. Alcohol level of 233. Patient received 1.5 L of normal saline through her IV before taking it out. On reevaluation she is alert and oriented x 3 and states she does not want to talk to me anymore. Family members are at bedside and are requesting to take her home at this time. They state they will watch her overnight. I think it is appropriate for discharge. She has a sober ride home and her labs are unremarkable. Patient discharged from the Emergency Department. I do not feel that the patient's evaluation reveals any acute reason for admission at this time. I instructed them to either follow-up with their primary care physician or promptly return to the Emergency Department for reevaluation should symptoms worsen or new symptoms develop. I explained what symptoms would indicate the need to return to the emergency department. Shared decision making was used. The patient voiced understanding of the treatment plan and is agreeable with it. Clinical impression: Alcohol intoxication History & Record Review Discussion w/independent historian: EMS personnel and Family Lab Data Attestation: I reviewed the patient's lab results. Labs: Laboratory Results - last 24 hr 04/12/25 04/12/25 21:46 21:52 WBC 9.7 RBC 3.89 L Hgb 12.6 Hct 38.3 MCV 98.5 MCH 32.4 H MCHC 32.9 RDW Std Deviation 47.2 H RDW Coeff of Andrew 13.1 Plt Count 277 MPV 10.1 Immature Gran % (Auto) 0.300 Neut % (Auto) 44.8 L Lymph % (Auto) 39.1 Dickinson % (Auto) 10.4 H Eos % (Auto) 4.8 Baso % (Auto) 0.6 Absolute Neuts (auto) 4.3 Absolute Lymphs (auto) 3.78 Nucleated RBC % 0 Sodium 135 Potassium 3.5 Chloride 99 Carbon Dioxide 20.0 L Anion Gap 16 H BUN 15 Creatinine 0.76 Estim Creat Clear Calc 73.22 Est GFR (MDRD) Non-Af 83 BUN/Creatinine Ratio 20.3 H Glucose 154 H Calcium 9.2 Total Bilirubin 0.19 AST 21 ALT 14 Alkaline Phosphatase 63 Total Protein 6.9 Albumin 4.2 Globulin 2.7 Albumin/Globulin Ratio 1.6 Ethyl Alcohol 233.0 H POC Glucose 138 H Discharge Plan Triage Chief Complaint: ETOH Intox ED Provider: Katie Tian Dx/Rx/DC Orders Clinical Impression: Alcohol intoxication Instructions: ED Alcohol Intoxication Prescriptions: No Action citalopram 10 MG tablet 40 mg PO DAILY cholecalciferol (vitamin D3) [Vitamin D3] 400 UNIT capsule 400 unit PO DAILY melatonin 10 MG tablet extended release 10 mg PO DAILY meloxicam 15 mg tablet 15 mg PO BID Patient Comments: TAKE 1 TABLET BY MOUTH EVERY DAY estradiol 0.01 % (0.1 mg/gram) cream See Rx Instructions .ROUTE .COMPLEX Patient Comments: USE 1 GRAM VAGINALLY 3 TIMES WEEKLY Rx Instructions: 1 applic vaginally 3x/week nitrofurantoin monohyd/m-cryst 100 mg capsule 1 cap PO DAILY Patient Comments: TAKE 1 CAPSULE BY MOUTH TWICE A DAY darifenacin 15 mg tablet extended release 24 hr 15 mg PO DAILY Patient Comments: TAKE 1 TABLET BY MOUTH EVERY DAY oxycodone-acetaminophen [oxycodone-acetaminophen] 5-325 mg tablet 1 tab PO Q6H PRN PRN (Reason: Pain) 3 Days Qty: 12 0RF amoxicillin-pot clavulanate 875-125 mg tablet 1 tab PO BID 7 Days Qty: 14 0RF Primary Care Provider: Jennifer Sewell Referrals: Jennifer Sewell DO [Primary Care Provider, Family Practice] - As soon as possible Activity Restrictions/Additional Instructions: Your evaluation in the Emergency Department did not reveal any acute reason for admission. However, I want to emphasize that you may be early in the course of a disease process or illness even if it is not present. For this reason you should follow-up within 24 hours for reevaluation with either your primary care physician or if necessary back here in the Emergency Department. You should return to the Emergency Department immediately if your symptoms worsen or new symptoms develop. Print Language: Sami Disposition Disposition: Home, Self Care
--- NOTE | 2025-04-12 21:39 | ED.RN ---
This RN at bedside attempting to complete appropriate assessments on the patient. The patient is uncooperative with staff, pt is restless and answering no to every question. Patient is counting repetitively and ignoring staff's questions. This RN is unable to complete appropriate charting at this time.
--- NOTE | 2025-04-12 21:41 | EKG12_ITS ---
Test Reason : ETOH Blood Pressure : */* mmHG Vent. Rate : 74 BPM Atrial Rate : * BPM P-R Int : * ms QRS Dur : 90 ms QT Int : 382 ms P-R-T Axes : * 14 52 degrees QTcB Int : [address] and T wave abnormality Abnormal ECG Normal sinus rhythm Confirmed by JENNYFER WALSH, MARTINEZ ([id number]), slot editor JOHN THAKKAR ([id number]) on 04/18/2025 6:20:15 AM Referred By: Confirmed By: MARTINEZ BURGER MD
[2025-04-12] MEDS: 0.9% Normal Saline (1000mL) 1,000 ML 1000 ML IV (21:50)
[2025-04-12 21:53] VITALS: BP 127/61; PULSE 76; RESP 18; O2SAT 98
[2025-04-12 21:58] LABS: Hematocrit 38.3 % (37-47); Hemoglobin 12.6 g/dL (12.0-15.0); Immature Granulocytes Count 0.030 X10^3/uL (0.0-0.0); Mean Corp Hgb Conc 32.9 g/dL (32-36); Mean Corpuscular Volume 98.5 fL (81-99); Mean Platelet Vol. 10.1 fl (6.2-12.0); NRBC Flagged by Analyzer 0 % (0-5); Platelet Count 277 K/mm3 (150-450); RBC Distribution Width CV 13.1 % (11.6-14.6); RBC Distribution Width SD 47.2 fl (35.1-43.9); Red Blood Count 3.89 M/mm3 (4.2-5.4); White Blood Count 9.7 K/mm3 (4.4-11.0)
--- NOTE | 2025-04-12 22:12 | ED.RN ---
This RN called back into the room by the patient's visitor, stating that the patient is restless and throwing herself back and forth on the bed. This RN at bedside and asked the patient to open her eyes and look at this RN, the patient was able to follow these commands. This RN also asked the patient to deep breath and try to relax. The patient followed commands, stopped throwing herself around in the bed, the patient practiced taking deep breaths. The patient still refused to answer any of this RN's questions.
[2025-04-12 22:25] LABS: AST(SGOT) 21 U/L (<=31); Alanine Aminotransfer ALT/SGPT 14 U/L (<=34); Albumin, Serum 4.2 g/dL (3.4-4.8); Alcohol, Blood (Medical)-Serum 233.0 mg/dL (<=10.0); Alkaline Phosphatase 63 U/L (35-104); Anion Gap 16 (5-15); BUN 15 mg/dL (4-19); BUN/Creat Ratio 20.3 RATIO (10-20); Calcium,Total 9.2 mg/dL (7.6-11.0); Carbon Dioxide 20.0 mmol/L (21.0-32.0); Chloride 99 mmol/L (98-108); Estimated Creatinine Clearance 73.22 ml/min (50-250); Globulin 2.7 g/dL (2.2-4.2); Glucose 154 mg/dL (70-99); Potassium 3.5 mmol/L (3.3-5.1)
[2025-04-12 22:45] VITALS: O2SAT 86
[2025-04-12 22:47] VITALS: O2SAT 94
[2025-04-12] MEDS: 0.9% Normal Saline (1000mL) 1,000 ML 999 ML IV (22:52)
--- OUTSIDE RECORDS SUMMARY | 2025-04-12 22:54 | XMS RPT_ITS | CCD ---
Author Organization [facility] Care Team Providers Care Processing Lead Name Role Phone NIKKI GELLER Attending Unavailable TOSHA GHOTRA Referring Unavailable IMCA Primary Care Unavailable BERNCARLENET, NIKKI Attending Unavailable IMCA Referring Unavailable IMCA Primary Care Unavailable BERNCARLENET, NIKKI Attending Unavailable IMCA Referring Unavailable IMCA Primary Care Unavailable BERNHART, NIKKI Attending Unavailable BERNCARLENET, NIKKI Referring Unavailable IMCA Primary Care Unavailable BERNCARLENET, NIKKI Attending Unavailable IMCA Referring Unavailable IMCA Primary Care Unavailable BERNCARLENET, NIKKI Attending Unavailable IMCA Referring Unavailable IMCA Primary Care Unavailable BERNCARLENET, NIKKI Attending Unavailable IMCA Referring Unavailable IMCA Primary Care Unavailable ERICKSONT, NIKKI Attending Unavailable IMCA Referring Unavailable IMCA Primary Care Unavailable Jennifer Sewell DO Primary Care Provider [phone] Jennifer Sewell DO Primary Care Provider Dr. Jennifer Sewell Primary Care Provider Dr. Xavier Maciel Attending Provider Dr. Pio Broderick Referring Provider [phone] Dr. Jennifer Sewell Primary Care Provider [phone] Dr. Xavier Maciel Attending Provider Dr. Pio Broderick Referring Provider Jennifer Sewell DO Primary Care Provider Jennifer Sewell DO Primary Care Provider ALAN, NIKKI Attending Unavailable DONATO, JENNIFER A Primary Care Unavailable ERICKSONT, NIKKI Attending Unavailable DONATO, JENNIFER A Primary Care Unavailable MALYS, JENNIFER A Primary Care Unavailable BERNHART, NIKKI Attending Unavailable MALYS, JENNIFER A Primary Care Unavailable BERNHART, NIKKI Attending Unavailable BERNHART, NIKKI Attending Unavailable MALYS, JENNIFER A Primary Care Unavailable MALYS, JENNIFER A Primary Care Unavailable BERNHART, NIKKI Attending Unavailable MALYS, JENNIFER A Primary Care Unavailable BERNHART, NIKKI Attending Unavailable MALYS, JENNIFER A Primary Care Unavailable BERNHART, NIKKI Attending Unavailable Jose Howell Attending Unavailable Malys, Jennifer Primary Care Unavailable Glennys , Dr. Rodriguez Primary Care Physician Dr. Jose Howell DO Attending Physician Dr. Jose Howell DO Emergency Department Physi yvette Allergies Allergy Classification Reported Allergen(s) Allergy Type Date of Onset Reaction(s) Facility (20 sources) Sulfonamides (Antibiotic); Translations: [SULFA (SULFONAMIDE ANTIBIOTICS)] Propensity to adverse reactions (disorder) 2 Other [facility] Repository Medications Current Medications Medication Drug Class(es) Dates Sig (Normalized) Sig (Original) acetaminophen 325 mg / oxyCODONE hydrochloride 5 mg oral tablet (14 sources) Opioid Agonist Start: 07-21-2023 take 1 tablet by mouth every six hours as needed for pain Start: 07-21-2023 take 1 tablet by arleen th every six hours as needed Oxycodone-Acetaminophen Active 1 TABLET PO EVERY 6 HOURS NEEDED 12 3 July 21, 2023 Comment on above: 1 TAB ORALLY EVERY 6 HOURS NEEDED NEEDED FOR PAIN FOR 3 DAYS amoxicillin 875 mg / clavulanate 125 mg oral tablet (13 sources) Penicillin-class Antibacterial Start: take 1 tablet by mouth every twelve hours amoxicillin-clavul anate potassium (AUGMENTIN) 875-125 mg per tablet Take 1 tablet by mouth every 12 hours. 07/21/2023 Active Start: 07-21-2023 Comment on above: Take 1 tablet by arleen th every 12 hours. aspirin 81 mg oral tablet (20 sources) Platelet Aggregation Inhibitor, Nonsteroidal Anti-inflammatory Drug take 1 tablet by mouth once daily Aspirin 81 mg Tab Take 81 mg by mouth once daily. Active Comment on above: Take 81 mg by mouth once daily. cholecalciferol 0.01 mg oral capsule (7 sources) Vitamin D Start: take 1 capsule by mouth once daily CHOLECALCIFEROL, VITAMIN D3, (VITAMIN D3 ORAL) (20 sources) CHOLECALCIFEROL , VITAMIN D3, (VITAMIN D3 ORAL) Take by mouth. Active CHOLECALCIFEROL, VITAMIN D3, (VITAMIN D3 ORAL) Take by mouth. 0 Active Comment on above: Take by mouth. citalopram 40 mg oral tablet (20 sources) Serotonin Reuptake Inhibitor Start: 07-28-2024 citalopram (CELEXA) 40 mg tablet 07/28/2024 Active Start: 04-10-2015 take 4 tablets by mo [facility] once daily Start: 04-10-2015 take 40 mg by mouth once daily Citalopram Active 40 MG PO DAILY April 10, 2015 1:00am Start: 04-10-2015 take 10 mg by mouth once daily Citalopram Active 10 MG PO DAILY April 10, 2015 12:00am take 1 tablet by arleen once daily citalopram (CELEXA) 20 mg tablet Take 20 mg by mouth once daily. Active Comment on above: Take 20 mg by mouth once daily. 24 hr darifenacin 15 mg extended release oral tablet (20 sources) Cholinergic Muscarinic Antagonist Start: 01-24-2022 End: 12-13-2024 take 1 tablet by mouth once daily Start: 05-09-2021 take 1 tablet by arleen once daily darifenacin ER (ENABLEX) 15 mg 24 hr tablet Indications: Other urethral stricture, female TAKE 1 TABLET BY MOUTH EVERY DAY 90 tablet 3 05/09/2021 Active Comment on above: TAKE 1 TABLET BY ARLEEN EVERY DAY Take 1 tablet by arleen once daily. estradiol 0.1 mg/ml vaginal cream (20 sources) Estrogen Start: 12-30-2022 End: 05-18-2024 estradiol (ESTRACE) 0.01 % (0.1 mg/gram) vaginal cream Indications: Recurrent UTI USE 1 GRAM VAGINALLY 3 TIMES WEEKLY 42.5 g 3 05/18/2024 Active Start: 07-18-2022 Start: 06-17-2022 End: 05-18-2024 estradiol (ESTRACE) 0.01 % ( 0.1 mg/gram) vaginal cream Use 1 g vaginally three times a week. 42.5 g 3 06/17/2022 05/18/2024 Discontinued (Duplicate Entry) Start: 06-17-2022 End: 07-05-2022 estradiol (ESTRACE) 0.01 % ( 0.1 mg/gram) vaginal cream Indications: Recurrent UTI USE 1 G VAGINALLY 3 TIMES WEEKLY 42.5 g 3 07/05/2022 Active Start: 01-24-2022 End: 06-17-2022 estradiol (ESTRACE) 0.01 % ( 0.1 mg/gram) vaginal cream Indications: Recurrent UTI APPLY 1 GRAM VAGINALLY TWO TIMES A WEEK. 42.5 g 3 01/24/2022 06/17/2022 Discontinued Start: 11-02-2020 estradiol (EST RACE) 0.01 % (0.1 mg/gram) vaginal cream Indications: Recurrent UTI Use 1 g vaginally two times a week. 42.5 g 3 11/02/2020 Active Comment on above: Use 1 g vaginally tw o times a week. APPLY 1 GRAM VAGINAL LY TWO TIMES A WEEK. Use 1 g vaginally th ree times a week. APPLY 1 GRAM VAGINALLY TWO TIMES A WEEK. Use 1 g vaginally th ree times a week. USE 1 G VAGINALLY 3 TIMES WEEKLY USE 1 GRAM VAGINALLY 3 TIMES WEEKLY L.ACID/L.CASEI/B.BIF/B.KWABENA/ FOS (PROBIOTIC BLEND ORAL) (20 sources) L.ACID/L.CASEI/B .BIF/B.LO N/FOS (PROBIOTIC BLEND ORAL) Take by mouth. Active L.ACID/L.CASEI/B .BIF/B.KWABENA/FOS (PROBIOTIC BLEND ORAL) Take by mouth. 0 Active Comment on above: Take by mouth. melatonin 10 mg extended release oral tablet (20 sources) Start: 04-10-2015 take 1 tablet by arleen th once daily MELATONIN ORAL T wilfrido by mouth. Active MELATONIN ORAL T wilfrido by mouth. 0 Active Comment on above: Take by mouth. meloxicam 15 mg oral tablet (4 sources) Nonsteroidal Anti-inflammatory Drug Start: 3 take 1 tablet by mouth twice daily Multivitamin With Folic Acid (Thera) 1 TABLET tablet (3 sources) Start: 5 take 1 tablet by mouth once daily Multivitamin With Folic Acid (Thera) 1 TABLET tablet Active 1 TABLET PO DAILY April 10, 2015 12:00am MULTIVITAMIN/IRON/FOL IC ACID (CENTRUM ULTRA WOMEN'S ORAL) (20 sources) MULTIVITAMIN/IRO N/FO LIC ACID (CENTRUM ULTRA WOMEN'S ORAL) Take by mouth once daily. Active MULTIVITAMIN/IRO N/FOLIC ACID (CENTRUM ULTRA WOMEN'S ORAL) Take by mouth once daily. 0 Active Comment on above: Take by mouth once d aily. nitrofurantoin, macrocrystals 25 mg / nitrofurantoin, monohydrate 75 mg oral capsule (4 sources) Nitrofuran Antibacterial Start: take 1 capsule by mouth once daily Turmeric extract (18 sources) TURMERIC ORAL Take by mouth. Active TURMERIC ORAL Ta ke by mouth. 0 Active Comment on above: Take by mouth. vitamin D3/vitamin K2, MK4, (K2 PLUS D3 PO) (1 source) vitamin D3/vitam in K2, MK4, (K2 PLUS D3 PO) Take by mouth. Active Completed/Discontinued Medications Medication Drug Class(es) Dates Sig (Normalized) Sig (Original) 24 hr oxybutynin chloride 10 mg extended release oral tablet (16 sources) Cholinergic Muscarinic Antagonist Start: 04-10-2015 End: 12-29-2023 take 1 tablet by mouth every twenty-four hours oxybutynin ER (DITROPAN XL) 10 mg 24 hr tablet Take by mouth. 04/10/2015 12/29/2023 Discontinued (Course of therapy completed) Start: 04-10-2015 take 1 tablet by arleen th once daily Oxybutynin Chloride (Ditropan Xl) 10 MG Tab.Er.24 Active 10 MG PO DAILY April 10, 2015 12:00am Comment on above: Take by mouth. Problems Active Problems Problem Classification Problem Date Documented Da te Episodic/Chronic Alcohol-related disorders (4 sources) Alcohol intoxication; Translations: [Alcohol use, unspecified with intoxication, unspecified] 07-18-2022 Episodic Genitourinary symptoms and ill-defined conditions (20 sources) Urge incontinence of urine; Translations: [Urge incontinence] Onset: 12-17-2018 12-17-2018 Chronic Nonmalignant breast conditions (20 sources) Fibrocystic disease of breast; Translations: [Diffuse cystic mastopathy of unspecified breast] Onset: 02-15-2013 02-15-2013 Chronic Open wounds of head; neck; and trunk (2 sources) Facial laceration ; Translations: [Laceration without foreign body of other part of head, initial encounter] 07-21-2023 Episodic Other circulatory disease (1 source) Elevated blood pressure; Translations: [Elevated blood-pressure reading, without diagnosis of hypertension] 02-20-2025 Episodic Other diseases of bladder and urethra (20 sources) Urethral stricture; Translations: [Other urethral stricture, female] Onset: 03-10-2018 03-10-2018 Episodic Other injuries and conditions due to external causes (2 sources) Injury of head; Translations: [Unspecified injury of head, initial encounter] 07-21-2023 Episodic Other non-traumatic joint disorders (2 sources) Pain in left knee; Translations: [Left knee pain] Onset: 02-23-2025 02-20-2025 Episodic Skull and face fractures (2 sources) Fracture of orbital floor; Translations: [Fracture of orbital floor, unspecified side, initial encounter for closed fracture] 07-21-2023 Episodic Superficial injury; contusion (8 sources) Abrasion of chin; Translations: [Abrasion of other part of head, initial encounter] 07-21-2023 Episodic Unclassified (2 sources) Other urethral stricture, female Onset: 03-10-2018 Urinary tract infections (5 sources) Recurrent urinary tract infection; Translations: [Urinary tract infection, site not specified] Episodic Past or Other Problems Problem Classification Problem Date Documented Da te Episodic/Chronic Other diseases of bladder and urethra (2 sources) Other urethral stricture, female; Translations: [Other urethral stricture, female] Onset: 03-10-2018 Episodic Results Test Name Value Interpretation Reference Range Facility [facility] 02-22-2025 CNOV Office Visit (UROLSF ) -------- ESTELLA JOSEPH ([id number]) 1950 [facility] Date Time Provider Department 02/22/25 11:15 AM NIKKI GELLER UROBrandon During your visit today, we recorded the following information about you: Weight Height 85.9 kg 1.715 m Nikki Geller APRN.CNP 02/22/2025 11:50 AM Signed 02/22/2025 PCP: DO Estella Menon Casey Regina is a 74 year old female who presents for an established patient visit. Patient with a history of urethral dilations. Occasional frequency and decreased stream but stable. FREQUENCY: she has frequency of urination. Abdominal Pain: None Fever: none Chills: No Dysuria: frequency Hematuria: None Nocturia: No Urgency: Usually No results found for: HB, HCT, WBC, PSA Current Outpatient Medications Medication Sig vitamin D3/vitamin K2, MK4, (K2 PLUS D3 PO) Take by mouth. darifenacin ER (ENABLEX) 15 mg 24 hr tablet TAKE 1 TABLET BY MOUTH EVERY DAY TURMERIC ORAL Take by mouth. MELATONIN ORAL Take by mouth. CHOLECALCIFEROL, VITAMIN D3, (VITAMIN D3 ORAL) Take by mouth. L.ACID/L.CASEI/B.BIF/B.L ON/FOS (PROBIOTIC BLEND ORAL) Take by mouth. citalopram (CELEXA) 20 mg tablet Take 20 mg by mouth once daily. Aspirin 81 mg Tab Take 81 mg by mouth once daily. MULTIVITAMIN/IRON/FOLIC ACID (CENTRUM ULTRA WOMEN'S ORAL) Take by mouth once daily. estradiol (ESTRACE) 0.01 % (0.1 mg/gram) vaginal cream USE 1 GRAM VAGINALLY 3 TIMES WEEKLY citalopram (CELEXA) 40 mg tablet (Patient not taking: Reported on 12/14/2024) amoxicillin-clavulanate potassium (AUGMENTIN) 875-125 mg per tablet Take 1 tablet by mouth every 12 hours. (Patient not taking: Reported on 02/22/2025) oxyCODONE-acetaminophen (PERCOCET) 5-325 mg tablet 1 TAB ORALLY EVERY 6 HOURS NEEDED NEEDED FOR PAIN FOR 3 DAYS (Patient not taking: Reported on 12/14/2024) No current facility-administered medications for this visit. ALLERGIES Allergen Reactions Sulfa (Sulfonamide * PAST MEDICAL HISTORY Diagnosis Date Postmenopausal atrophic vaginitis Stricture, urethra OLIVER (stress urinary incontinence, female) Urge incontinence UTI (urinary tract infection) PAST SURGICAL HISTORY Procedure Laterality Date COLONOSCOPY 12/2014 EXC CYST/ABERRANT BREAST TISSUE OPEN 1/> LESION 1995 R breast benign- lipomas by description GALLBLADDER/EF KNEE SURGERY HX bursis sac removed TONSILLECTOMY HX TUBAL LIGATION HX 1981 bilateral VAGINAL DELIVERY HX FAMILY HISTORY Problem Relation Age of Onset Colon Cancer Mother Diabetes Mother Colon Cancer Father other (Lung Cancer) Father other (Throat Cancer) Father Breast Cancer Maternal Aunt #1) 60 @ dx. living Alzheimer's Disease Maternal Aunt 60's @ dx. Living Breast Cancer Maternal Aunt #2) details unknown SOCIAL HISTORY[1] ACTIVE PROBLEM LIST Fibrocystic Breast Other Urethral Stricture, Female Urge Incontinence REVIEW OF SYSTEMS: REVIEW OF SYSTEMS GENERAL: No weight loss, malaise or fevers PHYSICAL EXAM: General Appearance: Well appearing, alert, in no acute distress, well-hydrated, well nourished.. FINDINGS AND PROCEDURE: The patient was placed in the lithotomy position. The genitalia area was prepped and draped and 2% Anestacon was was injected into the urethra. A 14 [place] female sound was gently introduced into the bladder. The urethra was sequentially gently dilated through 28 Pakistani. This was well tolerated by the patient and she was sent home with a single dose of an antibiotic. She is to call if she experiences any problems. PRESCRIPTION THIS VISIT: Orders Placed This Encounter estradiol (ESTRACE) 0.01 % (0.1 mg/gram) vaginal cream Sig: USE 1 GRAM VAGINALLY 3 TIMES WEEKLY Dispense: 42.5 g Refill: 3 ASSESSMENT/PLAN: 1. Other urethral stricture, female - ICD9: 598.8, ICD10: N35.82 (primary diagnosis) 2. Urge incontinence - ICD9: 788.31, ICD10: N39.41 3. Recurrent UTI - ICD9: 599.0, ICD10: N39.0 - ESTRADIOL 0.01% (0.1 MG/GRAM) VAGINAL CREAM Nikki Geller APRN.CNP [1] Social History Tobacco Use Smoking status: Never Smokeless tobacco: Never Substance Use Topics Alcohol use: Yes Comment: Social Drug use: No Allergies As of Date: 02/22/2025 Noted Allergy Reaction SULFA (SULFONAMIDE ANTIBIOTICS) 07/06/2001 Date Reviewed: 02/22/2025 Reviewed by: Nikki Geller APRN.STRU[employer]URAL [employer] WORKER - Fully Assessed Reason for Visit: Dilation [Other] Cmt: Urethral dilation Primary Visit Diagnosis:Other urethral stricture, female [N35.82] Other Visit Diagnoses:Urge incontinence [N39.41] Recurrent UTI [N39.0] Order(s):estradiol (ESTRACE) 0.01 % (0.1 mg/gram) vaginal creamUSE 1 GRAM VAGINALLY 3 TIMES WEEKLYDisp: 42.5 gRfl: 3 Prescriptions as of 02/22/2025 - estradiol (ESTRACE) 0.01 % (0.1 mg/gram) vaginal cream USE 1 GRAM VAGINALLY 3 TIMES WEEKLY - vitamin D3/vitamin K2, MK4, (K2 PLUS D3 PO) (more content not included)... Normal [facility] Emergency Department Summary on 02-12-2025 Emergency Department Summary [facility] Medical Records Department [address] [place] [address] Emergency Department Summary 02/12/25 MR#: [id number] Acct: [id number] Name: ESTELLA JOSEPH Rep #: [id number] : 1950 74 From: Jose Howell DO PCP: Dr. Jennifer Sewell, DO Status:DEP ER Location: ED HPI History of Present Illness HPI Narrative: Patient presents with left knee injury that occurred yesterday. Patient states she twisted her knee and then stepped down hard. Patient states the pain is mainly over the posterior aspect of her knee. Patient describes it as stabbing. Patient states it is worse with bending and better with rest. Patient admits to some tingling in her knee. Patient is unsure if she heard a snapping or popping sensation. Patient denies any weakness. Chief Complaint: Lower Extremity Injury Informant: patient Occured/Mechanism Comment: Twisted and stepped down hard on her knee Onset/Context/Timing Onset: Yesterday Context: Sudden Onset Timing: Continuous Quality of Pain: Stabbing Location: Left knee Worsened by: Bending Relieved by: Rest Associated Symptoms Associated Symptoms: Positive for Parasthesia; Negative for Weakness or Loss of Funtion PFSH PFSH Medical History no medical history no medical history Home Medications ???Medication ???Instructions ???Recorded ???Last Taken ???Type cholecalciferol (vitamin D3) 10 400 unit PO DAILY 04/10/15 Unknown History mcg (400 unit) capsule (Vitamin D3) citalopram 10 mg tablet 40 mg PO DAILY 04/10/15 Unknown Hi story melatonin 10 mg tablet,extended 10 mg PO DAILY 04/10/15 Unknown Hi story release darifenacin 15 mg tablet,extended 15 mg PO DAILY 07/18/22 Unknown H istory release 24 hr estradiol 0.01% (0.1 mg/gram) See Rx Instructions .Route .COMPLE X 07/18/22 Unknown History vaginal cream meloxicam 15 mg tablet 15 mg PO BID 07/18/22 Unknown Hist ory nitrofurantoin 1 cap PO DAILY 07/18/22 Unknown Hi story monohydrate/macrocrystal s 100 mg capsule amoxicillin 875 mg-potassium 1 tab PO BID 7 days #14 tabs 07/20 Unknown Rx clavulanate 125 mg tablet oxycodone-acetaminophen 5 mg-325 1 tab PO Q6H PRN PRN Pain 3 days 0 07/21/23 Unknown Rx mg tablet #12 TABLETS Allergy/AdvReac Type Severity Reaction Status Date / Time Sulfa (Sulfonamide Allergy Other Verified 02/12/25 14:59 Antibiotics) Surgical History (Updated 02/12/25 @ 17:[address] Jose Howell DO) Hx of cholecystectomy Hx of tonsillectomy Hx of bursectomy H/O medial meniscus repair of right knee Social History housing: house Smoking Status: Never smoker ROS ROS ED Constitutional Constitutional ED: Denies chills or fever(s) Eyes Eyes: Denies blurry vision or change in vision ENT ENT ED: Denies rhinorrhea or sore throat Cardiovascular Cardiovascular: Denies chest pain or palpitations Respiratory/Chest Respiratory/Chest: Denies cough or dyspnea Gastrointestinal Gastrointestinal: Denies nausea or vomiting Genitourinary Genitourinary ED: Denies dysuria or hematuria Musculoskeletal Musculoskeletal: Denies back pain or neck pain Integumentary Denies abscess or rash Neurologic Neurologic: Denies headache(s) or weakness Allergic/Immunologic Allergic/Immunologic ED: Denies mouth swelling or urticaria EXAM Physical Exam Const Vital Signs: 02/12/25 14:59 Temperature 97.3 F L Temperature Source Temporal Pulse Rate 70 Respiratory Rate 18 Blood Pressure 130/55 H Blood Pressure Mean 80 Pulse Ox 99 Oxygen Delivery Method Room Air Positive well nourished and well developed General Appearance ED: well developed and NAD HEENT Reports moist mucous membranes normocephalic and atraumatic Neck full ROM Extremity Extremity Narrative: There is tenderness over the left knee. There is a mild edema. There is no deformity noted. There is a mild effusion noted. Range of motion was limited in flexion of the left knee secondary to pain. There is no laxity appreciated. Varus and valgus stress test were negative. Rhett's test was negative. There is minimal pain with Lisa testing. Sensation was intact to light touch bilaterally in lower extremities. Strength is 5/5 bilaterally in the lower extremities. Extensor mechanism is intact. Neuro oriented x3, CN's II-XII intact bilaterally, moves all extremities and no sensory deficits noted Sensorium / Orientation: alert Motor Exam: strength 5/5 throughout Psych mental status grossly normal MDM MDM MDM Narrative Medical decision making narrative: Differential diagnosis includes fracture, sprain, meniscus injury, and effusion. X-rays of the left knee will be obtained to assess for fracture. Radiography Diagnostic Maryanne (more content not included)... Normal [facility] Knee 4 or More Viewson 02-12 Knee 4 or More Views [facility] Imaging Services [address] [place] [address] [id number] Knee 4 or More Views MR#: [id number] Acct: [id number] Name: ESTELLA JOSEPH Rep #: [id number] : 1950 F 74 From: Nato Ratliff MD PCP: Dr. Jennifer Sewell, Status: REG ER Study: Knee 4 or More Views Date of Exam: 02/12/25 Exam# [id number] Ordering Dr: Jose Howell DO PROCEDURE: KNEE 4 OR MORE VIEWS 02/12/2025 REASON FOR EXAM: INJURY/PAIN TECHNIQUE: Procedure Code: RADKN Modality: DX Procedure: KNEE 4 OR MORE VIEWS Laterality: Left COMPARISON: None FINDINGS: No displaced fracture or traumatic malalignment. There is a small knee joint effusion. Bone mineral density is subjectively normal. There is moderate joint space narrowing which is most pronounced in the lateral compartment. RAD/Knee 4 or More Views IMPRESSION: No acute osseous abnormality of the left knee. Moderate osteoarthritis. Reading Location: [facility] CC: Dr. Jose Howell DO; Dr. Jennifer Sewell DO Campaign Advisor: Signed [facility] CNOVon 12-14-2024 CNOV Office Visit (UROLSF ) -------- ESTELLA JOSEPH ([id number]) 1950 F [place] Date Time Provider Department 12/14/24 11:00 AM NIKKI GELLER UROFRANCISCA During your visit today, we recorded the following information about you: Nikki Geller APRN.[employer]AD[employer] WORKER 12/14/2024 11:20 AM Signed 12/14/2024 PCP: DO Estella Menon is a 74 year old female who presents for an established patient visit. Patient with a history of urethral dilations. Occasional frequency and decreased stream but stable. FREQUENCY: she has frequency of urination. Abdominal Pain: None Fever: none Chills: No Dysuria: frequency Hematuria: None Nocturia: No Urgency: Usually No results found for: HB, HCT, WBC, PSA Current Outpatient Medications Medication Sig vitamin D3/vitamin K2, MK4, (K2 PLUS D3 PO) Take by mouth. darifenacin ER (ENABLEX) 15 mg 24 hr tablet TAKE 1 TABLET BY MOUTH EVERY DAY estradiol (ESTRACE) 0.01 % (0.1 mg/gram) vaginal cream USE 1 GRAM VAGINALLY 3 TIMES WEEKLY amoxicillin-clavulanate potassium (AUGMENTIN) 875-125 mg per tablet Take 1 tablet by mouth every 12 hours. TURMERIC ORAL Take by mouth. MELATONIN ORAL Take by mouth. CHOLECALCIFEROL, VITAMIN D3, (VITAMIN D3 ORAL) Take by mouth. L.ACID/L.CASEI/B.BIF/B.L ON/FOS (PROBIOTIC BLEND ORAL) Take by mouth. citalopram (CELEXA) 20 mg tablet Take 20 mg by mouth once daily. Aspirin 81 mg Tab Take 81 mg by mouth once daily. MULTIVITAMIN/IRON/FOLIC ACID (CENTRUM ULTRA WOMEN'S ORAL) Take by mouth once daily. citalopram (CELEXA) 40 mg tablet (Patient not taking: Reported on 12/14/2024) oxyCODONE-acetaminophen (PERCOCET) 5-325 mg tablet 1 TAB ORALLY EVERY 6 HOURS NEEDED NEEDED FOR PAIN FOR 3 DAYS (Patient not taking: Reported on 12/14/2024) No current facility-administered medications for this visit. ALLERGIES Allergen Reactions Sulfa (Sulfonamide * PAST MEDICAL HISTORY Diagnosis Date Postmenopausal atrophic vaginitis Stricture, urethra OLIVER (stress urinary incontinence, female) Urge incontinence UTI (urinary tract infection) PAST SURGICAL HISTORY Procedure Laterality Date COLONOSCOPY 12/2014 EXC CYST/ABERRANT BREAST TISSUE OPEN LESION 1995 R breast benign- lipomas by description GALLBLADDER/EF KNEE SURGERY HX bursis sac removed TONSILLECTOMY HX TUBAL LIGATION HX 1980 bilateral VAGINAL DELIVERY HX FAMILY HISTORY Problem Relation Age of Onset Colon Cancer Mother Diabetes Mother Colon Cancer Father other (Lung Cancer) Father other (Throat Cancer) Father Breast Cancer Maternal Aunt #1) 60 @ dx. living Alzheimer's Disease Maternal Aunt 60's @ dx. Living Breast Cancer Maternal Aunt #2) details unknown SOCIAL HISTORY[1] ACTIVE PROBLEM LIST Fibrocystic Breast Other Urethral Stricture, Female Urge Incontinence REVIEW OF SYSTEMS: REVIEW OF SYSTEMS GENERAL: No weight loss, malaise or fevers PHYSICAL EXAM: General Appearance: Well appearing, alert, in no acute distress, well-hydrated, well nourished.. FINDINGS AND PROCEDURE: The patient was placed in the lithotomy position. The genitalia area was prepped and draped and 2% Anestacon was was injected into the urethra. A 14 Pakistani Kenyon female sound was gently introduced into the bladder. The urethra was sequentially gently dilated through 26 Pakistani. This was well tolerated by the patient and she was sent home with a single dose of an antibiotic. She is to call if she experiences any problems. PRESCRIPTION THIS VISIT: Orders Placed This Encounter vitamin D3/vitamin K2, MK4, (K2 PLUS D3 PO) Sig: Take by mouth. (The purpose of any medications prescribed on this visit, mode of administration, and side effects were discussed with the patient.) ASSESSMENT/PLAN: 1. Recurrent UTI - ICD9: 599.0, ICD10: N39.0 (primary diagnosis) 2. Other urethral stricture, female - ICD9: 598.8, ICD10: N35.82 -f/u in 10 weeks. Nikki Geller APRN.CNP [1] Social History Tobacco Use Smoking status: Never Smokeless tobacco: Never Substance Use Topics Alcohol use: Yes Comment: Social Drug use: No Allergies As of Date: 12/14/2024 Noted Allergy Reaction SULFA (SULFONAMIDE ANTIBIOTICS) 07/06/2001 Date Reviewed: 12/14/2024 Reviewed by: Nikki Geller APRN.STRU[employer]URAL [employer] TRAD[employer] WORKER - Fully Assessed Reason for Visit: Follow Up [171] Cmt: Dilation Primary Visit Diagnosis:Recurrent UTI [N39.0] Other Visit Diagnosis:Other urethral stricture, female [N35.82] Prescriptions as of 12/14/2024 - vitamin D3/vitamin K2, MK4, (K2 PLUS D3 PO) Take by mouth. - darifenacin ER (ENABLEX) 15 mg 24 hr tablet TAKE 1 TABLET BY MOUTH EVERY DAY - citalopram (CELEXA) 40 mg tablet - estradiol (ESTRACE) 0.01 % (0.1 mg/gram) vaginal cream USE 1 GRAM VAGINALLY 3 TIMES WEEKLY - amoxicillin-clavulanate potassium (AUGMENTIN) 875-125 mg per tablet Take 1 tablet by mouth every 12 hours. (more content not included)... Normal [facility] CNOVon 10-05-2024 CNOV Office Visit (UROLSF ) -------- ESTELLA JOSEPH ([id number]) 1950 F [place] Date Time Provider Department 10/05/24 10:45 AM NIKKI GELLER During your visit today, we recorded the following information about you: Height 1.715 m Nikki Geller APRN.CNP 10/05/2024 11:10 AM Signed 10/05/2024 PCP: DO Estella Menon McMillen is a 74 year old female who presents for an established patient visit. Patient with a history of urethral dilations. Occasional frequency and decreased stream but stable. FREQUENCY: she has frequency of urination. Abdominal Pain: None Fever: none Chills: No Dysuria: frequency Hematuria: None Nocturia: No Urgency: Usually No results found for: HB, HCT, WBC, PSA Current Outpatient Medications Medication Sig citalopram (CELEXA) 40 mg tablet estradiol (ESTRACE) 0.01 % (0.1 mg/gram) vaginal cream USE 1 GRAM VAGINALLY 3 TIMES WEEKLY darifenacin ER (ENABLEX) 15 mg 24 hr tablet take 1 tablet by mouth every day amoxicillin-clavulanate potassium (AUGMENTIN) 875-125 mg per tablet Take 1 tablet by mouth every 12 hours. TURMERIC ORAL Take by mouth. MELATONIN ORAL Take by mouth. CHOLECALCIFEROL, VITAMIN D3, (VITAMIN D3 ORAL) Take by mouth. L.ACID/L.CASEI/B.BIF/B.L ON/FOS (PROBIOTIC BLEND ORAL) Take by mouth. citalopram (CELEXA) 20 mg tablet Take 20 mg by mouth once daily. Aspirin 81 mg Tab Take 81 mg by mouth once daily. MULTIVITAMIN/IRON/FOLIC ACID (CENTRUM ULTRA WOMEN'S ORAL) Take by mouth once daily. oxyCODONE-acetaminophen (PERCOCET) 5-325 mg tablet 1 TAB ORALLY EVERY 6 HOURS NEEDED NEEDED FOR PAIN FOR 3 DAYS (Patient not taking: Reported on 08/02/2024) No current facility-administered medications for this visit. ALLERGIES Allergen Reactions Sulfa (Sulfonamide * PAST MEDICAL HISTORY Diagnosis Date Postmenopausal atrophic vaginitis Stricture, urethra OLIVER (stress urinary incontinence, female) Urge incontinence UTI (urinary tract infection) PAST SURGICAL HISTORY Procedure Laterality Date COLONOSCOPY 12/2014 EXC CYST/ABERRANT BREAST TISSUE OPEN LESION 1995 R breast benign- lipomas by description GALLBLADDER/EF KNEE SURGERY HX bursis sac removed TONSILLECTOMY HX TUBAL LIGATION HX 1980 bilateral VAGINAL DELIVERY HX FAMILY HISTORY Problem Relation Age of Onset Colon Cancer Mother Diabetes Mother Colon Cancer Father other (Lung Cancer) Father other (Throat Cancer) Father Breast Cancer Maternal Aunt #1) 60 @ dx. living Alzheimer's Disease Maternal Aunt 60's @ dx. Living Breast Cancer Maternal Aunt #2) details unknown Social History Tobacco Use Smoking status: Never Smokeless tobacco: Never Substance Use Topics Alcohol use: Yes Comment: Social Drug use: No ACTIVE PROBLEM LIST Fibrocystic Breast Other Urethral Stricture, Female Urge Incontinence REVIEW OF SYSTEMS: REVIEW OF SYSTEMS GENERAL: No weight loss, malaise or fevers PHYSICAL EXAM: General Appearance: Well appearing, alert, in no acute distress, well-hydrated, well nourished.. FINDINGS AND PROCEDURE: The patient was placed in the lithotomy position. The genitalia area was prepped and draped and 2% Anestacon was was injected into the urethra. A 14 Pakistani Ken[place] female sound was gently introduced into the bladder. The urethra was sequentially gently dilated through 28 Pakistani. This was well tolerated by the patient and she was sent home with a single dose of an antibiotic. She is to call if she experiences any problems. PRESCRIPTION THIS VISIT: No orders of the defined types were placed in this encounter. (The purpose of any medications prescribed on this visit, mode of administration, and side effects were discussed with the patient.) Nikki Geller APRN.STRU[employer]URAL [employer] TRADES WORKER ASSESSMENT/PLAN: 1. Other urethral stricture, female - ICD9: 598.8, ICD10: N35.82 (primary diagnosis) 2. Urge incontinence - ICD9: 788.31, ICD10: N39.41 Nikki Geller APRN.CNP Allergies As of Date: 10/05/2024 Noted Allergy Reaction SULFA (SULFONAMIDE ANTIBIOTICS) 07/06/2001 Date Reviewed: 10/05/2024 Reviewed by: Nikki Geller APRN.STRU[employer]URAL [employer] TRAD[employer] WORKER - Fully Assessed Reason for Visit: Follow Up [171] Cmt: dilation Primary Visit Diagnosis:Other urethral stricture, female [N35.82] Other Visit Diagnosis:Urge incontinence [N39.41] Prescriptions as of 10/05/2024 - citalopram (CELEXA) 40 mg tablet - estradiol (ESTRACE) 0.01 % (0.1 mg/gram) vaginal cream USE 1 GRAM VAGINALLY 3 TIMES WEEKLY - darifenacin ER (ENABLEX) 15 mg 24 hr tablet take 1 tablet by mouth every day - amoxicillin-clavulanate potassium (AUGMENTIN) 875-125 mg per tablet Take 1 tablet by mouth every 12 hours. - oxyCODONE-acetaminophen (PERCOCET) 5-325 mg tablet 1 TAB ORALLY EVERY 6 HOURS NEEDED NEEDED FOR PAIN FOR 3 DAYS - TURMERIC ORAL Take by mouth. - MELATONIN ORAL Take by arleen (more content not included)... Normal [facility] CNOVon 08-02-2024 CNOV Office Visit (UROLSF ) -------- ESTELLA JOSEPH ([id number]) 1950 F [facility] Date Time Provider Department 08/02/24 10:00 AM [facility] During your visit today, we recorded the following information about you: Weight Height 87.4 kg 1.715 m Nikki Geller APRN.STRU[employer]URAL [employer] TRADES WORKER 08/02/2024 10:23 AM Signed 08/02/2024 PCP: DO Estella Menon is a 74 year old female who presents for an established patient visit. Patient with a history of urethral dilations. Occasional frequency and decreased stream but stable. FREQUENCY: she has frequency of urination. Abdominal Pain: None Fever: none Chills: No Dysuria: frequency Hematuria: None Nocturia: No Urgency: Usually No results found for: HB, HCT, WBC, PSA Current Outpatient Medications Medication Sig estradiol (ESTRACE) 0.01 % (0.1 mg/gram) vaginal cream USE 1 GRAM VAGINALLY 3 TIMES WEEKLY darifenacin ER (ENABLEX) 15 mg 24 hr tablet take 1 tablet by mouth every day amoxicillin-clavulanate potassium (AUGMENTIN) 875-125 mg per tablet Take 1 tablet by mouth every 12 hours. (Patient not taking: Reported on 12/29/2023) oxyCODONE-acetaminophen (PERCOCET) 5-325 mg tablet 1 TAB ORALLY EVERY 6 HOURS NEEDED NEEDED FOR PAIN FOR 3 DAYS (Patient not taking: Reported on 12/29/2023) TURMERIC ORAL Take by mouth. MELATONIN ORAL Take by mouth. CHOLECALCIFEROL, VITAMIN D3, (VITAMIN D3 ORAL) Take by mouth. L.ACID/L.CASEI/B.BIF/B.L ON/FOS (PROBIOTIC BLEND ORAL) Take by mouth. citalopram (CELEXA) 20 mg tablet Take 20 mg by mouth once daily. Aspirin 81 mg Tab Take 81 mg by mouth once daily. MULTIVITAMIN/IRON/FOLIC ACID (CENTRUM ULTRA WOMEN'S ORAL) Take by mouth once daily. No current facility-administered medications for this visit. ALLERGIES Allergen Reactions Sulfa (Sulfonamide * PAST MEDICAL HISTORY Diagnosis Date Postmenopausal atrophic vaginitis Stricture, urethra OLIVER (stress urinary incontinence, female) Urge incontinence UTI (urinary tract infection) PAST SURGICAL HISTORY Procedure Laterality Date COLONOSCOPY 12/2014 EXC CYST/ABERRANT BREAST TISSUE OPEN LESION 1995 R breast benign- lipomas by description GALLBLADDER/EF KNEE SURGERY HX bursis sac removed TONSILLECTOMY HX TUBAL LIGATION HX 1980 bilateral VAGINAL DELIVERY HX FAMILY HISTORY Problem Relation Age of Onset Colon Cancer Mother Diabetes Mother Colon Cancer Father other (Lung Cancer) Father other (Throat Cancer) Father Breast Cancer Maternal Aunt #1) 60 @ dx. living Alzheimer's Disease Maternal Aunt 60's @ dx. Living Breast Cancer Maternal Aunt #2) details unknown Social History Tobacco Use Smoking status: Never Smokeless tobacco: Never Substance Use Topics Alcohol use: Yes Comment: Social Drug use: No ACTIVE PROBLEM LIST Fibrocystic Breast Other Urethral Stricture, Female Urge Incontinence REVIEW OF SYSTEMS: REVIEW OF SYSTEMS GENERAL: No weight loss, malaise or fevers PHYSICAL EXAM: General Appearance: Well appearing, alert, in no acute distress, well-hydrated, well nourished.. FINDINGS AND PROCEDURE: The patient was placed in the lithotomy position. The genitalia area was prepped and draped and 2% Anestacon was was injected into the urethra. A 14 Pakistani Ken[place] female sound was gently introduced into the bladder. The urethra was sequentially gently dilated through 28 Pakistani. This was well tolerated by the patient and she was sent home with a single dose of an antibiotic. She is to call if she experiences any problems. PRESCRIPTION THIS VISIT: No orders of the defined types were placed in this encounter. (The purpose of any medications prescribed on this visit, mode of administration, and side effects were discussed with the patient.) ASSESSMENT/PLAN: 1. Other urethral stricture, female - ICD9: 598.8, ICD10: N35.82 2. Urge incontinence - ICD9: 788.31, ICD10: N39.41 Nikki Geller APRN.CNP The patient consented to the use of [email or web address] software for draft documentation of the visit consistent with [facility]?s Notice of Privacy Practices. Allergies As of Date: 08/02/2024 Noted Allergy Reaction SULFA (SULFONAMIDE ANTIBIOTICS) 07/06/2001 Date Reviewed: 08/02/2024 Reviewed by: Anh Burnham LPN - Fully Assessed Reason for Visit: Urethral Stricture [822] Primary Visit Diagnosis:Other urethral stricture, female [N35.82] Other Visit Diagnosis:Urge incontinence [N39.41] Prescriptions as of 08/02/2024 - citalopram (CELEXA) 40 mg tablet - estradiol (ESTRACE) 0.01 % (0.1 mg/gram) vaginal cream USE 1 GRAM VAGINALLY 3 TIMES WEEKLY - darifenacin ER (ENABLEX) 15 mg 24 hr tablet take 1 tablet by mouth every day - amoxicillin-clavulanate potassium (AUGMENTIN) 875-125 mg per tablet Take 1 tablet by mouth every 12 hours. - oxyCODONE-acetaminophen (PERCOCET) 5-325 mg tablet 1 TAB ORAL (more content not included)... Normal [facility] CNOVon 05-18-2024 CNOV Office Visit (UROLSF ) -------- ESTELLA JOSEPH ([id number]) 1950 F [facility] Date Time Provider Department 05/18/24 10:00 AM NIKKI GELLER [facility] During your visit today, we recorded the following information about you: Nikki Geller APRN.CNP 05/18/2024 10:36 AM Signed 05/18/2024 PCP: Jennifer Sewell, DO Estella Joseph is a 74 year old female who presents for an established patient visit. Patient with a history of urethral dilations. Occasional frequency and decreased stream but stable. FREQUENCY: she has frequency of urination. Abdominal Pain: None Fever: none Chills: No Dysuria: frequency Hematuria: None Nocturia: No Urgency: Usually No results found for: HB, HCT, WBC, PSA Current Outpatient Medications Medication Sig darifenacin ER (ENABLEX) 15 mg 24 hr tablet take 1 tablet by mouth every day TURMERIC ORAL Take by mouth. MELATONIN ORAL Take by mouth. CHOLECALCIFEROL, VITAMIN D3, (VITAMIN D3 ORAL) Take by mouth. L.ACID/L.CASEI/B.BIF/B.L ON/FOS (PROBIOTIC BLEND ORAL) Take by mouth. citalopram (CELEXA) 20 mg tablet Take 20 mg by mouth once daily. Aspirin 81 mg Tab Take 81 mg by mouth once daily. MULTIVITAMIN/IRON/FOLIC ACID (CENTRUM ULTRA WOMEN'S ORAL) Take by mouth once daily. estradiol (ESTRACE) 0.01 % (0.1 mg/gram) vaginal cream USE 1 GRAM VAGINALLY 3 TIMES WEEKLY amoxicillin-clavulanate potassium (AUGMENTIN) 875-125 mg per tablet Take 1 tablet by mouth every 12 hours. (Patient not taking: Reported on 12/29/2023) oxyCODONE-acetaminophen (PERCOCET) 5-325 mg tablet 1 TAB ORALLY EVERY 6 HOURS NEEDED NEEDED FOR PAIN FOR 3 DAYS (Patient not taking: Reported on 12/29/2023) No current facility-administered medications for this visit. ALLERGIES Allergen Reactions Sulfa (Sulfonamide * PAST MEDICAL HISTORY Diagnosis Date Postmenopausal atrophic vaginitis Stricture, urethra OLIVER (stress urinary incontinence, female) Urge incontinence UTI (urinary tract infection) PAST SURGICAL HISTORY Procedure Laterality Date COLONOSCOPY 12/2014 EXC CYST/ABERRANT BREAST TISSUE OPEN LESION 1995 R breast benign- lipomas by description GALLBLADDER/EF KNEE SURGERY HX bursis sac removed TONSILLECTOMY HX TUBAL LIGATION HX 1980 bilateral VAGINAL DELIVERY HX FAMILY HISTORY Problem Relation Age of Onset Colon Cancer Mother Diabetes Mother Colon Cancer Father other (Lung Cancer) Father other (Throat Cancer) Father Breast Cancer Maternal Aunt #1) 60 @ dx. living Alzheimer's Disease Maternal Aunt 60's @ dx. Living Breast Cancer Maternal Aunt #2) details unknown Social History Tobacco Use Smoking status: Never Smokeless tobacco: Never Substance Use Topics Alcohol use: Yes Comment: Social Drug use: No ACTIVE PROBLEM LIST Fibrocystic Breast Other Urethral Stricture, Female Urge Incontinence REVIEW OF SYSTEMS: REVIEW OF SYSTEMS GENERAL: No weight loss, malaise or fevers PHYSICAL EXAM: General Appearance: Well appearing, alert, in no acute distress, well-hydrated, well nourished.. FINDINGS AND PROCEDURE: The patient was placed in the lithotomy position. The genitalia area was prepped and draped and 2% Anestacon was was injected into the urethra. A 16 Pakistani Ken[place] female sound was gently introduced into the bladder. The urethra was sequentially gently dilated through 28 Pakistani. This was well tolerated by the patient and she was sent home with a single dose of an antibiotic. She is to call if she experiences any problems. The sensitive examination was discussed with the Patient or Patient's Authorized Peanut Vendor. As applicable, any other physician, advance practice provider, medical student, or other health professional student that will be observing or involved in the sensitive examination for educational or training purposes was discussed with the Patient or Authorized Peanut Vendor. The Patient or Authorized Peanut Vendor has agreed to proceed with the sensitive examination. (Sensitive examination includes inspection and/or palpation of the breasts, pelvis, prostate and anorectal regions) PRESCRIPTION THIS VISIT: Orders Placed This Encounter estradiol (ESTRACE) 0.01 % (0.1 mg/gram) vaginal cream Sig: USE 1 GRAM VAGINALLY 3 TIMES WEEKLY Dispense: 42.5 g Refill: 3 (The purpose of any medications prescribed on this visit, mode of administration, and side effects were discussed with the patient.) ASSESSMENT/PLAN: 1. Other urethral stricture, female - ICD9: 598.8, ICD10: N35.82 -f/u for dilation in 10 weeks. 2. Recurrent UTI - ICD9: 599.0, ICD10: N39.0 - ESTRADIOL 0.01% (0.1 MG/GRAM) VAGINAL CREAM Nikki Geller APRN.STRU[employer]URAL [employer] TRADES WORKER Allergies As of Date: 05/18/2024 Noted Allergy Reaction SULFA (SULFONAMIDE ANTIBIOTICS) 07/06/2001 Date Reviewed: 05/18/2024 Reviewed by: Nikki Geller APRN.STRU[employer]URAL STEEL TRADES WORKER - Fully Assessed Reaso (more content not included)... Normal [facility] CNPNon 03-11-2024 ZOHAIBN Telephone (URHWST) -------- REGINAESTELLA Peña ([id number]) 1950 F [facility] Date Time Provider Department 03/11/24 [facility] During your visit today, we recorded the following information about you: Nikki Geller APRN.CNP 03/11/2024 12:47 PM Signed Please call patient, urine culture is negative for infection. Lora Hennessy MA 03/11/2024 1:16 PM Signed LVM with results Allergies As of Date: 03/11/2024 Noted Allergy Reaction SULFA (SULFONAMIDE ANTIBIOTICS) 07/06/2001 Date Reviewed: 03/08/2024 Reviewed by: Nikki Geller APRN.STRU[employer]URAL [employer] TRAD[employer] WORKER - Fully Assessed Reason for Visit: Results [95] Prescriptions as of 03/11/2024 - darifenacin ER (ENABLEX) 15 mg 24 hr tablet take 1 tablet by mouth every day - amoxicillin-clavulanate potassium (AUGMENTIN) 875-125 mg per tablet Take 1 tablet by mouth every 12 hours. - oxyCODONE-acetaminophen (PERCOCET) 5-325 mg tablet 1 TAB ORALLY EVERY 6 HOURS NEEDED NEEDED FOR PAIN FOR 3 DAYS - estradiol (ESTRACE) 0.01 % (0.1 mg/gram) vaginal cream USE 1 GRAM VAGINALLY 3 TIMES WEEKLY - TURMERIC ORAL Take by mouth. - estradiol (ESTRACE) 0.01 % (0.1 mg/gram) vaginal cream Use 1 g vaginally three times a week. - MELATONIN ORAL Take by mouth. - CHOLECALCIFEROL, VITAMIN D3, (VITAMIN D3 ORAL) Take by mouth. - L.ACID/L.CASEI/B.BIF/B.L ON/FOS (PROBIOTIC BLEND ORAL) Take by mouth. - citalopram (CELEXA) 20 mg tablet Take 20 mg by mouth once daily. - Aspirin 81 mg Tab Take 81 mg by mouth once daily. - MULTIVITAMIN/IRON/FOLIC ACID (CENTRUM ULTRA WOMEN'S ORAL) Take by mouth once daily. Problem List As Of Date 03/11/2024 Noted Resolved Fibrocystic breast [N60.19] 02/15/2013 Other urethral stricture, female [N35.82] 03/10/2018 Urge incontinence [N39.41] 12/17/2018 Encounter Status:Closed by NIKKI GELLER on 03/11/24 Normal [facility] Bacteria Ur Culton Bacteria identified Cx Nom (U) CULTURE, URINE: No growth (<100 CFU/ml) Normal [facility] Comment on above: Performed By: #### 6 30-4 ####[facility] LABCLIA [id number] [address] [facility] CNOVon 03-08-2024 CNOV Office Visit (UROLSF ) -------- ESTELLA JOSEPH ([id number]) 1950 F [facility] Date Time Provider Department 03/08/24 10:45 AM NIKKI GELLER UROLSF During your visit today, we recorded the following information about you: Weight Height 88.9 kg 1.715 m Nikki Geller APRN.STRUCTURAL STEEL TRADES WORKER 03/08/2024 11:29 AM Signed 03/08/2024 PCP: DO Estella Menon is a 73 year old female who presents for an established patient visit. Patient with a history of urethral dilations. FREQUENCY: she has frequency of urination. Abdominal Pain: None Fever: none Chills: No Dysuria: frequency Hematuria: None Nocturia: No Urgency: Usually No results found for: HB, HCT, WBC, PSA Current Outpatient Medications Medication Sig estradiol (ESTRACE) 0.01 % (0.1 mg/gram) vaginal cream Use 1 g vaginally three times a week. darifenacin ER (ENABLEX) 15 mg 24 hr tablet take 1 tablet by mouth every day amoxicillin-clavulanate potassium (AUGMENTIN) 875-125 mg per tablet Take 1 tablet by mouth every 12 hours. (Patient not taking: Reported on 12/29/2023) oxyCODONE-acetaminophen (PERCOCET) 5-325 mg tablet 1 TAB ORALLY EVERY 6 HOURS NEEDED NEEDED FOR PAIN FOR 3 DAYS (Patient not taking: Reported on 12/29/2023) estradiol (ESTRACE) 0.01 % (0.1 mg/gram) vaginal cream USE 1 GRAM VAGINALLY 3 TIMES WEEKLY TURMERIC ORAL Take by mouth. MELATONIN ORAL Take by mouth. CHOLECALCIFEROL, VITAMIN D3, (VITAMIN D3 ORAL) Take by mouth. L.ACID/L.CASEI/B.BIF/B.L ON/FOS (PROBIOTIC BLEND ORAL) Take by mouth. citalopram (CELEXA) 20 mg tablet Take 20 mg by mouth once daily. Aspirin 81 mg Tab Take 81 mg by mouth once daily. MULTIVITAMIN/IRON/FOLIC ACID (CENTRUM ULTRA WOMEN'S ORAL) Take by mouth once daily. No current facility-administered medications for this visit. ALLERGIES Allergen Reactions Sulfa (Sulfonamide * PAST MEDICAL HISTORY Diagnosis Date Postmenopausal atrophic vaginitis Stricture, urethra OLIVER (stress urinary incontinence, female) Urge incontinence UTI (urinary tract infection) PAST SURGICAL HISTORY Procedure Laterality Date COLONOSCOPY 12/2014 EXC CYST/ABERRANT BREAST TISSUE OPEN LESION 1995 R breast benign- lipomas by description GALLBLADDER/EF KNEE SURGERY HX bursis sac removed TONSILLECTOMY HX TUBAL LIGATION HX 1980 bilateral VAGINAL DELIVERY HX FAMILY HISTORY Problem Relation Age of Onset Colon Cancer Mother Diabetes Mother Colon Cancer Father other (Lung Cancer) Father other (Throat Cancer) Father Breast Cancer Maternal Aunt #1) 60 @ dx. living Alzheimer's Disease Maternal Aunt 60's @ dx. Living Breast Cancer Maternal Aunt #2) details unknown Social History Tobacco Use Smoking status: Never Smokeless tobacco: Never Substance Use Topics Alcohol use: Yes Comment: Social Drug use: No ACTIVE PROBLEM LIST Fibrocystic Breast Other Urethral Stricture, Female Urge Incontinence REVIEW OF SYSTEMS: REVIEW OF SYSTEMS GENERAL: No weight loss, malaise or fevers PHYSICAL EXAM: General Appearance: Well appearing, alert, in no acute distress, well-hydrated, well nourished.. FINDINGS AND PROCEDURE: The patient was placed in the lithotomy position. The genitalia area was prepped and draped and 2% Anestacon was was injected into the urethra. A 20 [place] female sound was gently introduced into the bladder. The urethra was sequentially gently dilated through 28 Pakistani. This was well tolerated by the patient and she was sent home with a single dose of an antibiotic. She is to call if she experiences any problems. PRESCRIPTION THIS VISIT: No orders of the defined types were placed in this encounter. (The purpose of any medications prescribed on this visit, mode of administration, and side effects were discussed with the patient.) ASSESSMENT/PLAN: 1. Other urethral stricture, female - ICD9: 598.8, ICD10: N35.82 -urine culture sent today. -f/u in 10 weeks. 2. Urge incontinence - ICD9: 788.31, ICD10: N39.41 Nikki Geller APRN.CNP Allergies As of Date: 03/08/2024 Noted Allergy Reaction SULFA (SULFONAMIDE ANTIBIOTICS) 07/06/2001 Date Reviewed: 03/08/2024 Reviewed by: Nikki Geller APRN.STRU[employer]URAL [employer]EL TRADES WORKER - Fully Assessed Reason for Visit: Urethral Stricture [822] Primary Visit Diagnosis:Other urethral stricture, female [N35.82] Other Visit Diagnosis:Urge incontinence [N39.41] Order(s):URINE CULTURE [SQURCUL] Order #: [id number]. #:[id number] Prescriptions as of 03/08/2024 - darifenacin ER (ENABLEX) 15 mg 24 hr tablet take 1 tablet by mouth every day - amoxicillin-clavulanate potassium (AUGMENTIN) 875-125 mg per tablet Take 1 tablet by mouth every 12 hours. - oxyCODONE-acetaminophen (PERCOCET) 5-325 mg tablet 1 TAB ORALLY EVERY 6 HOURS NEEDED NEEDED FOR PAIN FOR 3 DAYS - estradiol (ESTRACE) 0.01 % (0.1 mg/gram) vaginal cream U (more content not included)... Normal [facility] CNOVon 10-02-2023 CNOV Office Visit (URHWST ) -------- REGINAESTELLA ([id number]) 1950 F [place] Date Time Provider Department 10/02/23 10:00 AM NIKKI GELLER During your visit today, we recorded the following information about you: Height 1.715 m Nikki Geller APRN.STRU[employer]URAL [employer]EL TRADES WORKER 10/02/2023 10:19 AM Signed 10/02/2023 PCP: DO Estella Menon is a 73 year old female who presents for an established patient visit. Patient with a history of urethral dilations. FREQUENCY: she has frequency of urination. Abdominal Pain: None Fever: none Chills: No Dysuria: frequency Hematuria: None Nocturia: No Urgency: Usually No results found for: HB, HCT, WBC, PSA Current Outpatient Medications Medication Sig amoxicillin-clavulanate potassium (AUGMENTIN) 875-125 mg per tablet Take 1 tablet by mouth every 12 hours. oxyCODONE-acetaminophen (PERCOCET) 5-325 mg tablet 1 TAB ORALLY EVERY 6 HOURS NEEDED NEEDED FOR PAIN FOR 3 DAYS estradiol (ESTRACE) 0.01 % (0.1 mg/gram) vaginal cream USE 1 GRAM VAGINALLY 3 TIMES WEEKLY darifenacin ER (ENABLEX) 15 mg 24 hr tablet take 1 tablet by mouth every day TURMERIC ORAL Take by mouth. estradiol (ESTRACE) 0.01 % (0.1 mg/gram) vaginal cream Use 1 g vaginally three times a week. oxybutynin ER (DITROPAN XL) 10 mg 24 hr tablet Take by mouth. MELATONIN ORAL Take by mouth. CHOLECALCIFEROL, VITAMIN D3, (VITAMIN D3 ORAL) Take by mouth. L.ACID/L.CASEI/B.BIF/B.L ON/FOS (PROBIOTIC BLEND ORAL) Take by mouth. citalopram (CELEXA) 20 mg tablet Take 20 mg by mouth once daily. Aspirin 81 mg Tab Take 81 mg by mouth once daily. MULTIVITAMIN/IRON/FOLIC ACID (CENTRUM ULTRA WOMEN'S ORAL) Take by mouth once daily. No current facility-administered medications for this visit. ALLERGIES Allergen Reactions Sulfa (Sulfonamide * PAST MEDICAL HISTORY Diagnosis Date Postmenopausal atrophic vaginitis Stricture, urethra OLIVER (stress urinary incontinence, female) Urge incontinence UTI (urinary tract infection) PAST SURGICAL HISTORY Procedure Laterality Date COLONOSCOPY 12/2014 EXC CYST/ABERRANT BREAST TISSUE OPEN / LESION 1995 R breast benign- lipomas by description GALLBLADDER/EF KNEE SURGERY HX bursis sac removed TONSILLECTOMY HX TUBAL LIGATION HX 1980 bilateral VAGINAL DELIVERY HX FAMILY HISTORY Problem Relation Age of Onset Colon Cancer Mother Diabetes Mother Colon Cancer Father other (Lung Cancer) Father other (Throat Cancer) Father Breast Cancer Maternal Aunt #1) 60 @ dx. living Alzheimer's Disease Maternal Aunt 60's @ dx. Living Breast Cancer Maternal Aunt #2) details unknown Social History Tobacco Use Smoking status: Never Smokeless tobacco: Never Substance Use Topics Alcohol use: Yes Comment: Social Drug use: No ACTIVE PROBLEM LIST Fibrocystic Breast Other Urethral Stricture, Female Urge Incontinence REVIEW OF SYSTEMS: REVIEW OF SYSTEMS GENERAL: No weight loss, malaise or fevers PHYSICAL EXAM: General Appearance: Well appearing, alert, in no acute distress, well-hydrated, well nourished.. FINDINGS AND PROCEDURE: The patient was placed in the lithotomy position. The genitalia area was prepped and draped and 2% Anestacon was was injected into the urethra. A 17 [place] female sound was gently introduced into the bladder. The urethra was sequentially gently dilated through 28 Pakistani. This was well tolerated by the patient and she was sent home with a single dose of an antibiotic. She is to call if she experiences any problems. PRESCRIPTION THIS VISIT: No orders of the defined types were placed in this encounter. (The purpose of any medications prescribed on this visit, mode of administration, and side effects were discussed with the patient.) ASSESSMENT/PLAN: 1. Other urethral stricture, female - ICD9: 598.8, ICD10: N35.82 -dilation in 10 weeks. 2. Urge incontinence - ICD9: 788.31, ICD10: N39.41 Nikki Geller APRN.[employer] Allergies As of Date: 10/02/2023 Noted Allergy Reaction SULFA (SULFONAMIDE ANTIBIOTICS) 07/06/2001 Date Reviewed: 10/02/2023 Reviewed by: Nikki eGller APRN.ZOHAIB - Fully Assessed Reason for Visit: Urethral Stricture [822] Primary Visit Diagnosis:Other urethral stricture, female [N35.82] Other Visit Diagnosis:Urge incontinence [N39.41] Prescriptions as of 10/02/2023 - amoxicillin-clavulanate potassium (AUGMENTIN) 875-125 mg per tablet Take 1 tablet by mouth every 12 hours. - oxyCODONE-acetaminophen (PERCOCET) 5-325 mg tablet 1 TAB ORALLY EVERY 6 HOURS NEEDED NEEDED FOR PAIN FOR 3 DAYS - estradiol (ESTRACE) 0.01 % (0.1 mg/gram) vaginal cream USE 1 GRAM VAGINALLY 3 TIMES WEEKLY - darifenacin ER (ENABLEX) 15 mg 24 hr tablet take 1 tablet by mouth every day - TURMERIC ORAL Take by mouth. - estradiol (ESTRACE) 0.01 % (0.1 mg/gram) vaginal cream Use 1 g vagin (more content not included)... Normal [facility] CNOVon 04-01-[address] [facility] Office Visit (URHWST ) -------- ESTELLA JOSEPH ([id number]) 1950 [facility] Date Time Provider Department 04/01/23 10:00 AM NIKKI GELLERPERRI During your visit today, we recorded the following information about you: Height 1.715 m Nikki Geller APRN.CNP 04/01/2023 10:32 AM Signed 04/01/2023 PCP: DO Estella Menon is a 72 year old female who presents for an established patient visit. Patient with a history of urethral dilations. Occasional frequency and decreased stream but stable. FREQUENCY: she has frequency of urination. Abdominal Pain: None Fever: none Chills: No Dysuria: frequency Hematuria: None Nocturia: No Urgency: Usually No results found for: HB, HCT, WBC, PSA Current Outpatient Medications Medication Sig darifenacin ER (ENABLEX) 15 mg 24 hr tablet take 1 tablet by mouth every day estradiol (ESTRACE) 0.01 % (0.1 mg/gram) vaginal cream USE 1 GRAM VAGINALLY 3 TIMES WEEKLY TURMERIC ORAL Take by mouth. estradiol (ESTRACE) 0.01 % (0.1 mg/gram) vaginal cream Use 1 g vaginally three times a week. oxybutynin ER (DITROPAN XL) 10 mg 24 hr tablet Take by mouth. MELATONIN ORAL Take by mouth. CHOLECALCIFEROL, VITAMIN D3, (VITAMIN D3 ORAL) Take by mouth. L.ACID/L.CASEI/B.BIF/B.L ON/FOS (PROBIOTIC BLEND ORAL) Take by mouth. citalopram (CELEXA) 20 mg tablet Take 20 mg by mouth once daily. Aspirin 81 mg Tab Take 81 mg by mouth once daily. MULTIVITAMIN/IRON/FOLIC ACID (CENTRUM ULTRA WOMEN'S ORAL) Take by mouth once daily. No current facility-administered medications for this visit. ALLERGIES Allergen Reactions Sulfa (Sulfonamide * PAST MEDICAL HISTORY Diagnosis Date Postmenopausal atrophic vaginitis Stricture, urethra OLIVER (stress urinary incontinence, female) Urge incontinence UTI (urinary tract infection) PAST SURGICAL HISTORY Procedure Laterality Date COLONOSCOPY 12/2014 EXC CYST/ABERRANT BREAST TISSUE OPEN LESION 1996 R breast benign- lipomas by description GALLBLADDER/EF KNEE SURGERY HX bursis sac removed TONSILLECTOMY HX TUBAL LIGATION HX 1981 bilateral VAGINAL DELIVERY HX FAMILY HISTORY Problem Relation Age of Onset Colon Cancer Mother Diabetes Mother Colon Cancer Father other (Lung Cancer) Father other (Throat Cancer) Father Breast Cancer Maternal Aunt #1) 60 @ dx. living Alzheimer's Disease Maternal Aunt 60's @ dx. Living Breast Cancer Maternal Aunt #2) details unknown Social History Tobacco Use Smoking status: Never Smokeless tobacco: Never Substance Use Topics Alcohol use: Yes Comment: Social Drug use: No ACTIVE PROBLEM LIST Fibrocystic Breast Other Urethral Stricture, Female Urge Incontinence REVIEW OF SYSTEMS: REVIEW OF SYSTEMS GENERAL: No weight loss, malaise or fevers PHYSICAL EXAM: General Appearance: Well appearing, alert, in no acute distress, well-hydrated, well nourished.. FINDINGS AND PROCEDURE: The patient was placed in the lithotomy position. The genitalia area was prepped and draped and 2% Anestacon was was injected into the urethra. A 15 Pakistani [place] female sound was gently introduced into the bladder. The urethra was sequentially gently dilated through 28 Pakistani. This was well tolerated by the patient and she was sent home with a single dose of an antibiotic. She is to call if she experiences any problems. PRESCRIPTION THIS VISIT: No orders of the defined types were placed in this encounter. (The purpose of any medications prescribed on this visit, mode of administration, and side effects were discussed with the patient.) ASSESSMENT/PLAN: 1. Other urethral stricture, female - ICD9: 598.8, ICD10: N35.82 2. Urge incontinence - ICD9: 788.31, ICD10: N39.41 Nikki Geller APRN.ZOHAIB Allergies As of Date: 04/01/2023 Noted Allergy Reaction SULFA (SULFONAMIDE ANTIBIOTICS) 07/06/2001 Date Reviewed: 04/01/2023 Reviewed by: Nikki Geller APRN.[employer] - Fully Assessed Reason for Visit: Urethral Stricture [822] Primary Visit Diagnosis:Other urethral stricture, female [N35.82] Other Visit Diagnosis:Urge incontinence [N39.41] Prescriptions as of 04/01/2023 - darifenacin ER (ENABLEX) 15 mg 24 hr tablet take 1 tablet by mouth every day - estradiol (ESTRACE) 0.01 % (0.1 mg/gram) vaginal cream USE 1 GRAM VAGINALLY 3 TIMES WEEKLY - TURMERIC ORAL Take by mouth. - estradiol (ESTRACE) 0.01 % (0.1 mg/gram) vaginal cream Use 1 g vaginally three times a week. - oxybutynin ER (DITROPAN XL) 10 mg 24 hr tablet Take by mouth. - MELATONIN ORAL Take by mouth. - CHOLECALCIFEROL, VITAMIN D3, (VITAMIN D3 ORAL) Take by mouth. - L.ACID/L.CASEI/B.BIF/B.L ON/FOS (PROBIOTIC BLEND ORAL) Take by mouth. - citalopram (CELEXA) 20 mg tablet Take 20 mg by mouth once daily. - Aspirin 81 mg Tab Take 81 mg by mouth once daily. - MULTIVITAMIN/IRON/FOLIC ACID (FELIX (more content not included)... Normal [facility] UA DIP, URINE (POC)on 2022 BILIRUBIN UA (POCT) Negative Negative [facility] CLARITY UA (POCT) Clear [facility] COLOR UA (POCT) Yellow [facility] GLUCOSE UA (POCT) Negative Negative mg/dL [facility] HEMOGLOBIN/BLOOD UA (POCT) Negative Negative [facility] KETONE UA (POCT) Negative Negative mg/dL [facility] LEUKOCYTES UA (POCT) Negative Negative [facility] NITRITE UA (POCT) Negative Negative [facility] PH UA (POCT) 7.0 4.5 - 8.0 [facility] Protein Ql (U) Negative Negative mg/dL [facility] SPECIFIC GRAVITY UA (POCT) 1.010 1.005 - 1.030 [facility] UROBILINOGEN UA (POCT) 0.2 E.U./dL Rosemarie l E.U./dL [facility] UA DIP, URINE (POC)on 2022 BILIRUBIN UA (POCT) Negative Negative [facility] CLARITY UA (POCT) Clear [facility] COLOR UA (POCT) Yellow [facility] GLUCOSE UA (POCT) Negative Negative mg/dL [facility] HEMOGLOBIN/BLOOD UA (POCT) Trace-intact Abnormal Negative [facility] KETONE UA (POCT) Negative Negative mg/dL [facility] LEUKOCYTES UA (POCT) Negative Negative [facility] NITRITE UA (POCT) Negative Negative [facility] PH UA (POCT) 6.0 4.5 - 8.0 [facility] Protein Ql (U) Negative Negative mg/dL [facility] SPECIFIC GRAVITY UA (POCT) 1.010 1.005 - 1.030 [facility] UROBILINOGEN UA (POCT) 0.2 E.U./dL Rosemarie l E.U./dL [facility] Basophil percentageOrdered B y: Dr. Campos on 07-18-2022 Chloride [Moles/Vol] 103 mmol/L 98-107 [facility] Glucose [Mass/Vol] 206 mg/dL 74-106 [facility] Comment on above: Glucose result great er than or equal to 200 mg/dLsuggests DIABETES MELLITUS per A.D.A. criteria. Potassium [Moles/Vol] 3.2 mmol/L 3.5-5.1 [facility] Sodium [Moles/Vol] 137 mmol/L 136-145 [facility] Laboratory - Chemistry and C hemistry - challengeOrdered By: Dr. Campos on 07-18-2022 CO2 [Moles/Vol] 22.0 mmol/L 21.0-32.0 [facility] Urea nitrogen/Creatinine [Mass ratio] 17.3 mg/mg 10-20 [facility] Laboratory - Drug toxicology Ordered By: Brittani Murray on 07-18-2022 Amphetamines Ql (U) Negative <1000 ng/mL [facility] Benzodiazepines Ql (U) Negative < 200 ng/mL [facility] Cannabinoids Screen Ql (U) Negative < 50 ng/mL [facility] Cocaine Ql (U) Negative < 300 ng/mL [facility] Opiates Ql (U) Negative < 300 ng/mL [facility] No Panel InformationOrdered By: Brittani Murray on 07-18-2022 MDMA (Ecstasy) Screen Negative < 500 ng/mL [facility] Urine Barbiturates Screen Negative < 200 ng/mL [facility] Urine Drug Screen Comment [facility] Comment on above: CONFIRMATORY TESTING FOR ALL POSITIVE URINE DRUG SCREENRESULTS WILL ONLY BE SENT OUT UPON PHYSICIAN ORDER. VISTA Urine Drug Screen methods provide only preliminaryanalytical test results. A more specific alternate chemicalmethod must be used in order to obtain a confirmedanalytical result. Gas chromatography/mass spectrometery(GC/MS) is the preferred confirmatory method. Clinicalconsideration and professional judgement should be appliedto any drug of abuse test result, particularly whenpreliminary positive results are used. URINE TCA TESTING MUST BE ORDERED SEPARATELY. USE TESTMNEMONIC: [facility] Urine Methadone Screen Negative < 300 ng/mL [facility] No Panel InformationOrdered By: Dr. Campos on 07-18-2022 Estimated Creatinine Clearance Calc 48.25 ml/min [facility] Estimated GFR (MDRD) Amer 67 mL/min >60 [facility] Comment on above: GFR Calc Estimated GFR (MDRD) Non-Af Amer 56 mL/min >60 [facility] Comment on above: Non- GFR Calc Ethyl Alcohol Level 267.0 mg/dL [facility] Comment on above: The serum:whole bloo d ethanol ratio is approximately 1.14and varies slightly with hematocrit. Medical Alcohol reference interval and critical value innon-tolerant individuals; 50 - 100 Impairment 100 Intoxication 100 - 250 Severe Poisoning 250 - 400 Deep/possible fatal coma Serum or plasma calcium aubree urement (mass/volume)Ordered By: Dr. Campos on 07-18-2022 Calcium [Mass/Vol] 8.9 mg/dL 8.5-10.1 [facility] Serum or plasma creatinine m easurement (mass/volume)Ordered By: Dr. Campos on 07-18-2022 Creatinine [Mass/Vol] 1.04 mg/dL 0.55-1.02 [facility] Comment on above: The validity of the calculated GFR & GFRAA in patients over 70 years has not been determined. Clinical correlation is essential. Serum or plasma urea nitroge n measurement (mass/volume)Ordered By: Dr. Campos on 07-18-2022 Urea nitrogen [Mass/Vol] 18 mg/dL 7-18 [facility] Thin prep Papanicolaou smear with manual screeningOrdered By: Dr. Campos on 07-18-2022 Thin prep Papanicolaou smear with manual screening 12 5-15 [facility] Urine phencyclidine (PCP) de tectionOrdered By: Brittani Murray on 07-18-2022 Phencyclidine Ql (U) Negative < 25 ng/mL [facility] Basophil percentageOrdered B y: Dr. Broderick on 07-02-2022 Chloride [Moles/Vol] 102 mmol/L 98-107 [facility] Glucose [Mass/Vol] 199 mg/dL 74-106 [facility] Comment on above: Fasting Glucose resu lt greater than or equal to 126 mg/dL suggests DIABETES MELLITUS per A.D.A. criteria. Potassium [Moles/Vol] 4.0 mmol/L 3.5-5.1 [facility] Sodium [Moles/Vol] 137 mmol/L 136-145 [facility] WBC (Bld) [#/Vol] 6.7 10*3/uL 4.4-11.0 [facility] Blood erythrocytes count (nu mber/volume)Ordered By: Dr. Broderick on 07-02-2022 RBC (Bld) [#/Vol] 4.11 10*6/uL 4.2-5.4 [facility] Blood hemoglobin measurement (mass/volume)Ordered By: Dr. Broderick on 07-02-2022 Hemoglobin (Bld) [Mass/Vol] 13.2 g/dL 12.0-15.0 [facility] Blood platelet mean volumeOr dered By: Dr. Broderick on 07-02-2022 Platelet mean volume (Bld) [Entitic vol] 10.4 fL 6.2-12.0 [facility] Determination of erythrocyte mean corpuscular volume (MCV)Ordered By: Dr. Broderick on 07-02-2022 MCV (RBC) [Entitic vol] 98.1 fL 81-99 [facility] Hematocrit Auto (Bld) [Volum e fraction]Ordered By: Dr. Broderick on 07-02-2022 Hematocrit (Bld) [Volume fraction] 40.3 % 37-47 [facility] Laboratory - Chemistry and C hemistry - challengeOrdered By: Dr. Broderick on 07-02-2022 CO2 [Moles/Vol] 27.0 mmol/L 21.0-32.0 [facility] Urea nitrogen/Creatinine [Mass ratio] 16.2 mg/mg 10-20 [facility] Laboratory - Hematology and Cell countsOrdered By: Dr. Broderick on 07-02-2022 Erythrocyte distribution width (RBC) [Entitic vol] 46.4 fL 35.1-43.9 [facility] Erythrocyte distribution width (RBC) [Ratio] 12.8 % 11.6-14.6 [facility] MCH (RBC) [Entitic mass] 32.1 pg 27.0-32.0 [facility] MCHC Auto (RBC) [Mass/Vol]Or dered By: Dr. Broderick on 07-02-2022 MCHC (RBC) [Mass/Vol] 32.8 g/dL 32-36 [facility] Comment on above: Delta: 31.2 on 06/28-8 No Panel InformationOrdered By: Dr. Broedrick on 07-02-2022 Estimated GFR (MDRD) Amer 62 mL/min >60 [facility] Comment on above: GFR Calc Estimated GFR (MDRD) Non-Af Amer 52 mL/min >60 [facility] Comment on above: Non- GFR Calc Platelets bldOrdered By: Dr. Broderick on 07-02-2022 Platelets (Bld) [#/Vol] 212 10*3/uL 150-450 [facility] Serum or plasma calcium aubree urement (mass/volume)Ordered By: Dr. Broderick on 07-02-2022 Calcium [Mass/Vol] 9.3 mg/dL 8.5-10.1 [facility] Serum or plasma creatinine m easurement (mass/volume)Ordered By: Dr. Broderick on 07-02-2022 Creatinine [Mass/Vol] 1.11 mg/dL 0.55-1.02 [facility] Comment on above: The validity of the calculated GFR & GFRAA in patients over 70 years has not been determined. Clinical correlation is essential. Serum or plasma urea nitroge n measurement (mass/volume)Ordered By: Dr. Broderick on 07-02-2022 Urea nitrogen [Mass/Vol] 18 mg/dL 7-18 [facility] Thin prep Papanicolaou smear with manual screeningOrdered By: Dr. Broderick on 07-02-2022 Thin prep Papanicolaou smear with manual screening 8 5-15 [facility] Absolute lymphocyte countOrd ered By: Dr. Sewell on 06-28-2022 Lymphocytes Auto (Unsp spec) [#/Vol] 2.85 10*3/uL 0.83-4.51 [facility] Basophil percentageOrdered B y: Dr. Sewell on 06-28-2022 Basophils/100 WBC (Bld) 0.8 % 0-1 [facility] Bilirubin [Mass/Vol] 0.30 mg/dL 0.20-1.00 [facility] Comment on above: For patients on eltr ombopag therapy, use of Dimension [place] TBIL is not recommended. Chloride [Moles/Vol] 102 mmol/L 98-107 [facility] Cholesterol [Mass/Vol] 207 mg/dL <200 [facility] Comment on above: <200 mg/dL Desirable 200-240 mg/dL Borderline >240 mg/dL High Risk Eosinophils/100 WBC (Bld) 2.8 % 0-5 [facility] Glucose [Mass/Vol] 115 mg/dL 74-106 [facility] Comment on above: Fasting Glucose resu lt from 100 to 125 mg/dL suggests IMPAIRED HOMEOSTASIS per A.D.A. criteria. Neutrophils (Bld) [#/Vol] 4.1 10*3/uL 2.0-7.7 [facility] Neutrophils/100 WBC (Bld) 50.7 % 47-70 [facility] Potassium [Moles/Vol] 4.8 mmol/L 3.5-5.1 [facility] Protein [Mass/Vol] 7.0 g/dL 6.4-8.2 [facility] Sodium [Moles/Vol] 137 mmol/L 136-145 [facility] Triglyceride [Mass/Vol] 265 mg/dL <199 [facility] Comment on above: The drugs N-Acetylcy steine and Metamizole may falsely depress this assay.Serum Triglycerides Reference Interval Normal <150 mg/dL Borderline high 150 - 199 mg/dL High 200 - 499 mg/dL Very High > or = 500 mg/dL WBC (Bld) [#/Vol] 8.0 10*3/uL 4.4-11.0 [facility] Blood erythrocytes count (nu mber/volume)Ordered By: Dr. Sewell on 06-28-2022 RBC (Bld) [#/Vol] 4.31 10*6/uL 4.2-5.4 [facility] Blood hemoglobin measurement (mass/volume)Ordered By: Dr. Sewell on 06-28-2022 Hemoglobin (Bld) [Mass/Vol] 13.8 g/dL 12.0-15.0 [facility] Blood lymphocytes/100 leukoc ytesOrdered By: Dr. Sewell on 06-28-2022 Lymphocytes/100 WBC (Bld) 35.7 % 19-41 [facility] Blood monocytes/100 leukocyt esOrdered By: Dr. Sewell on 06-28-2022 Monocytes/100 WBC (Bld) 9.6 % 0-10 [facility] Blood platelet mean volumeOr dered By: Dr. Sewell on 06-28-2022 Platelet mean volume (Bld) [Entitic vol] 10.8 fL 6.2-12.0 [facility] Determination of erythrocyte mean corpuscular volume (MCV)Ordered By: Dr. Sewell on 06-28-2022 MCV (RBC) [Entitic vol] 102.8 fL 81-99 [facility] Hematocrit Auto (Bld) [Volum e fraction]Ordered By: Dr. Sewell on 06-28-2022 Hematocrit (Bld) [Volume fraction] 44.3 % 37-47 [facility] Laboratory - Chemistry and C hemistry - challengeOrdered By: Dr. Sewell on 06-28-2022 ALP [Catalytic activity/Vol] 66 U/L 45-117 [facility] ALT [Catalytic activity/Vol] 44 U/L 13-56 [facility] CO2 [Moles/Vol] 29.0 mmol/L 21.0-32.0 [facility] Globulin (S) [Mass/Vol] 3.0 g/dL 2.2-4.2 [facility] Urea nitrogen/Creatinine [Mass ratio] 23.1 mg/mg 10-20 [facility] - Hematology and Cell countsOrdered By: Dr. Sewell on 06-28-2022 Erythrocyte distribution width (RBC) [Entitic vol] 49.7 fL 35.1-43.9 [facility] Erythrocyte distribution width (RBC) [Ratio] 13.0 % 11.6-14.6 [facility] Immature granulocytes/100 WBC (Bld) 0.400 % 0.0-0.9 [facility] Comment on above: IG% - Immature Granu locytes (promyelocytes, myelocytes and metamyelocytes) > 1% indicates that a LEFT SHIFT is Present. MCH (RBC) [Entitic mass] 32.0 pg 27.0-32.0 [facility] Nucleated RBC/100 WBC (Bld) [Ratio] 0 % 0-5 [facility] MCHC Auto (RBC) [Mass/Vol]Or dered By: Dr. Sewell on 06-28-2022 MCHC (RBC) [Mass/Vol] 31.2 g/dL 32-36 [facility] No Panel InformationOrdered By: Dr. Sewell on 06-28-2022 Estimated GFR (MDRD) Amer 67 mL/min >60 [facility] Comment on above: GFR Calc Estimated GFR (MDRD) Non-Af Amer 56 mL/min >60 [facility] Comment on above: Non- GFR Calc Platelets bldOrdered By: Dr. Sewell on 06-28-2022 Platelets (Bld) [#/Vol] 235 10*3/uL 150-450 [facility] Serum or plasma albumin aubree urement (mass/volume)Ordered By: Dr. Sewell on 06-28-2022 Albumin [Mass/Vol] 4.0 g/dL 3.2-5.0 [facility] Serum or plasma albumin/glob ulin mass ratioOrdered By: Dr. Sewell on 06-28-2022 Albumin/Globulin [Mass ratio] 1.3 {ratio} 0.9-2.4 [facility] Serum or plasma calcium aubree urement (mass/volume)Ordered By: Dr. Sewell on 06-28-2022 Calcium [Mass/Vol] 9.5 mg/dL 8.5-10.1 [facility] Serum or plasma cholesterol in HDL measurement (mass/volume)Ordered By: Dr. Sewell on 06-28-2022 Cholesterol in HDL [Mass/Vol] 53 mg/dL >40 [facility] Comment on above: The drugs N-Acetylcy steine and Metamizole may falsely depress this assay. Reference Range HDL <40 mg/dL Low HDL Cholesterol HDL >or= 60 mg/dL High HDL Cholesterol Serum or plasma cholesterol in VLDL measurement (mass/volume)Ordered By: Dr. Sewell on 06-28-2022 Cholesterol in VLDL [Mass/Vol] 53 mg/dL 5-40 [facility] Serum or plasma creatinine m easurement (mass/volume)Ordered By: Dr. Sewell on 06-28-2022 Creatinine [Mass/Vol] 1.04 mg/dL 0.55-1.02 [facility] Comment on above: The validity of the calculated GFR & GFRAA in patients over 70 years has not been determined. Clinical correlation is essential. Serum or plasma low density lipoprotein (LDL) cholesterol measurement (mass/volume)Ordered By: Dr. Sewell on 06-28-2022 Cholesterol in LDL [Mass/Vol] 101 mg/dL 0-130 [facility] Serum or plasma urea nitroge n measurement (mass/volume)Ordered By: Dr. Sewell on 06-28-2022 Urea nitrogen [Mass/Vol] 24 mg/dL 7-18 [facility] Thin prep Papanicolaou smear with manual screeningOrdered By: Dr. Sewell on 06-28-2022 Thin prep Papanicolaou smear with manual screening 29 U/L 15-37 [facility] Thin prep Papanicolaou smear with manual screening 6 5-15 [facility] UA DIP, URINE (POC)on 2021 BILIRUBIN UA (POCT) Negative Negative [facility] CLARITY UA (POCT) Clear [facility] COLOR UA (POCT) Yellow [facility] GLUCOSE UA (POCT) Negative Negative mg/dL [facility] HEMOGLOBIN/BLOOD UA (POCT) Trace-intact Abnormal Negative [facility] KETONE UA (POCT) Negative Negative mg/dL [facility] LEUKOCYTES UA (POCT) Negative Negative [facility] NITRITE UA (POCT) Negative Negative [facility] PH UA (POCT) 6.5 4.5 - 8.0 [facility] Protein Ql (U) Negative Negative mg/dL [facility] SPECIFIC GRAVITY UA (POCT) 1.015 1.005 - 1.030 [facility] UROBILINOGEN UA (POCT) 0.2 E.U./dL Rosemarie l E.U./dL [facility] CNOVon 12-11-2016 CNOV Office Visit (UROLAE) ESTELLA JOSEPH ([id number]) 1950 [address] Time Provider Department12/11/16 2:45 PM NIKKI GELLER (ZOHAIB) UROANISHA During your visit today, we recorded the following information about you: Temperature Pulse Blood pressure Weight 98 degrees 46/minute 110/56 83 kg Height 1.683 mMaditi Geller CNP, CNP 12/11/2016 3:58 PM Signed12/11/2016PCP: Jennifer Sewell, Sonia Joseph is a 66 year old female who presents for an establishedpatient visit.Patient with a history of urethral dilations over the course of several years.Last dilation to by Dr. Ghotra 10 weeks ago.Gets occasional frequency and ecreased stream but stable.FREQUENCY: she has frequency of urination.Abdominal Pain: NoneFever: noneChills: NoDysuria: noneHematuria: NoneNocturia: NoUrgency: UsuallyNo results found for: HB, HCT, WBC, PSACurrent Outpatient Prescriptions:oxybutynin ER (DITROPAN XL) 15 mg 24 hr Extended Rel TabMELATONIN/PYRIDOXINE (MELATONIN, WITH B6, ORAL) Take by mouth.CHOLECALCIFEROL, VITAMIN D3, (VITAMIN D3 ORAL) Take by mouth.L.ACID/L.CASEI/B.B IF/B.KWABENA/FOS (PROBIOTIC BLEND ORAL) Take by mouth.citalopram (CELEXA) 20 mg tablet Take 20 mg by mouth once daily.valACYclovir (VALTREX) 500 mg tablet Take 500 mg by mouth twice daily.Aspirin 81 mg Tab Take 81 mg by mouth once daily.MULTIVITAMIN/IRON/ FOLIC ACID (CENTRUM ULTRA WOMEN'S ORAL) Take by mouth oncedaily.benzonatate (TESSALON PERLE) 100 mg capsulecitalopram (CELEXA) 40 mg tabletYUVAFEM 10 mcg tab vaginal tablet as needed.oxybutynin XL 10 mg 24 hr tablet Take 10 mg by mouth once daily.ibuprofen 200 mg ORAL tablet take as directed as neededNo current facility-administered medications for this visit.ALLERGIESAllergen Reactions- Sulfa (Sulfonamide *PAST MEDICAL HISTORYDiagnosis Date- Postmenopausal atrophic vaginitis- Stricture, urethra- OLIVER (stress urinary incontinence, female)- Urge incontinence- UTI (urinary tract infection)PAST SURGICAL HISTORY12/2014: [id number]: EXCIS BREAST LESION Comment: R breast benign- lipomas by descriptionNo date: GALLBLADDER/EFNo date: KNEE SURGERY HX Comment: bursis sac removedNo date: TONSILLECTOMY [id number]: TUBAL LIGATION HX Comment: bilateralNo date: VAGINAL DELIVERY HXFAMILY HISTORY Colon Cancer Mother Diabetes Mother Colon Cancer Father Lung Cancer [OTHER] Father Throat Cancer [OTHER] Father Breast Cancer Maternal Aunt Comment: #1) 60 @ dx. living Alzheimer's Disease Maternal Aunt Comment: 60's @ dx. 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 Thegenitalia area was prepped and draped and 2% Anestacon was was injected intothe urethra. A 18 Pakistani [place] female sound was gently introduced into thebladder. The urethra was sequentially gently dilated through 30 Pakistani. Thiswas well tolerated by the patient and she was sent home with a single dose ofan antibiotic. She is to call if she experiences any problems.PRESCRIPTION THIS VISIT:Orders Placed This Encounter UA Dip benzonatate (TESSALON PERLE) 100 mg capsule citalopram (CELEXA) 40 mg tablet YUVAFEM 10 mcg tab vaginal tablet Sig: as needed. oxybutynin ER (DITROPAN XL) 15 mg 24 hr Extended Rel Tab MELATONIN/PYRIDOXINE (MELATONIN, WITH B6, ORAL) Sig: Take by mouth. CHOLECALCIFEROL, VITAMIN D3, (VITAMIN D3 ORAL) Sig: Take by mouth. L.ACID/L.CASEI/B.BIF/B.L ON/FOS (PROBIOTIC BLEND ORAL) Sig: Take by mouth.(The purpose of any medications prescribed on this visit, mode ofadministration, and side effects were discussed with the patient.)ASSESSMENT/PLAN :1. Urinary tract infection without hematuria, site unspecified - ICD9: 599.0,ICD10: N39.0 (primary diagnosis)acute- UA DIP B/O2. Urethral stricture, unspecified stricture type - ICD9: 598.9, ICD10: N35.9Nikki Geller CNPReferring Provider: TOSHA GHOTRA [[id number]]Allergies As of Date: 12/11/2016 Noted Allergy ReactionSULFA (SULFONAMIDE ANTIBIOTICS) 07/06/2001Date Reviewed: 12/11/2016Reviewed by: Nikki Davalos) ZOHAIB Geller - Fully AssessedReason for Visit: Urethral Stricture [822] Cmt: Pt here for dilation. Pt said it takes awhile to empty bladder.Primary Visit Diagnosis:Urinary tract infection without hematuria, site unspecified [N39.0] Other Visit Diagnosis:Urethral stricture, unspecified stricture type [N35.9]Order(s):UA DIP B/O [[id number]] Order #: [id number] URINE CULTURE [SQURCUL] Order #: [id number] FUTUREPrescriptions as of 12/11/2016 Sig: OXYBUTYNIN CHLORIDE ER 15 MG * MELATONIN (WITH B6) ORAL Take by mouth. VITAMIN D3 ORAL Take by mouth. PROBIOTIC BLEND ORAL Take by mouth. CITALOPRAM 20 MG TABLET Take 20 mg by mouth once quinton* VALACYCLOVIR 500 MG TABLET Take 500 mg by mouth twice da* ASPIRIN 81 MG TABLET Take 81 mg by mouth once quinton* CENTRUM ULTRA WOMEN'S ORAL Take by mouth once daily. BENZONATATE 100 MG CAPSULE CITALOPRAM 40 MG TABLET YUVAFEM 10 MCG VAGINAL TABLET as needed. OXYBUTYNIN CHLORIDE ER 10 MG * Take 10 mg by mouth once quinton* IBUPROFEN 200 MG TABLET take as directed as neededMedication notes this encounter BENZONATATE 100 MG CAPSULE >> Shaji Nelson MA 12/11/2016 3:20 PM >> SHAJI NELSON MA FriDec 11, 2016 3:20 PM Not taking CITALOPRAM 40 MG TABLET >> Shaji Nelson MA 12/11/2016 3:20 PM >> SHAJI NELSON MA FriDec 11, 2016 3:20 PM Not taking OXYBUTYNIN CHLORIDE ER 10 MG TABLET,EXTENDED RELEASE 24 HR >> Shaji Nelson MA 12/11/2016 3:20 PM >> SHAJI NELSON MA FriDec 11, 2016 3:20 PM Not taking IBUPROFEN 200 MG TABLET >> Shaji Nelson MA 12/11/2016 3:20 PM >> SHAJI NELSON MA FriDec 11, 2016 3:20 PM Not takingProblem List As Of Date 12/11/2016 Noted Resolved Fibrocystic breast [N60.19] INVALID FOR* Stricture, urethra [N35.9] INVALID FOR*Disposition: Return in about 10 weeks (around 02/19/2017).Follow-up and Disposition History RecordedEncounter Number: [id number] Status:Closed by NIKKI GELLER on 12/11/16 [facility] PROGRESSon 12-11-2016 PROGRESS HNO ID: [id number]: Nikki (Webfed Offset Press Operator) ZOHAIB GellerSer: (none)Author Type: Nurse PractitionerType: Progress NotesFiled: 12/11/2016 3:58 PMNote Text:12/11/2016PCP: Jennifer Potts Donato, Sonia Casey Regina is a 66 year old female who presents for an establishedpatient visit.Patient with a history of urethral dilations over the course of severalyears. Last dilation to by Dr. Ghotra 10 weeks ago.Gets occasional frequency and ecreased stream but stable.FREQUENCY: she has frequency of urination.Abdominal Pain: NoneFever: noneChills: NoDysuria: noneHematuria: NoneNocturia: NoUrgency: UsuallyNo results found for: HB, HCT, WBC, PSACurrent Outpatient Prescriptions:oxybutynin ER (DITROPAN XL) 15 mg 24 hr Extended Rel TabMELATONIN/PYRIDOXINE (MELATONIN, WITH B6, ORAL) Take by mouth.CHOLECALCIFEROL, VITAMIN D3, (VITAMIN D3 ORAL) Take by mouth.L.ACID/L.CASEI/B.B IF/B.KWABENA/FOS (PROBIOTIC BLEND ORAL) Take by mouth.citalopram (CELEXA) 20 mg tablet Take 20 mg by mouth once daily.valACYclovir (VALTREX) 500 mg tablet Take 500 mg by mouth twice daily.Aspirin 81 mg Tab Take 81 mg by mouth once daily.MULTIVITAMIN/IRON/ FOLIC ACID (CENTRUM ULTRA WOMEN'S ORAL) Take by mouthonce daily.benzonatate (TESSALON PERLE) 100 mg capsulecitalopram (CELEXA) 40 mg tabletYUVAFEM 10 mcg tab vaginal tablet as needed.oxybutynin XL 10 mg 24 hr tablet Take 10 mg by mouth once daily.ibuprofen 200 mg ORAL tablet take as directed as neededNo current facility-administered medications for this visit.ALLERGIESAllergen Reactions- Sulfa (Sulfonamide *PAST MEDICAL HISTORYDiagnosis Date- Postmenopausal atrophic vaginitis- Stricture, urethra- OLIVER (stress urinary incontinence, female)- Urge incontinence- UTI (urinary tract infection)PAST SURGICAL HISTORY12/2014: [id number]: EXCIS BREAST LESION Comment: R breast benign- lipomas by descriptionNo date: GALLBLADDER/EFNo date: KNEE SURGERY HX Comment: bursis sac removedNo date: TONSILLECTOMY [id number]: TUBAL LIGATION HX Comment: bilateralNo date: VAGINAL DELIVERY HXFAMILY HISTORY Colon Cancer Mother Diabetes Mother Colon Cancer Father Lung Cancer [OTHER] Father Throat Cancer [OTHER] Father Breast Cancer Maternal Aunt Comment: #1) 60 @ dx. living Alzheimer's Disease Maternal Aunt Comment: 60's @ dx. Living Breast Cancer Maternal Aunt Comment: #2) details unknown Social History Marital status: Single Spouse name: Years of education: Number of children:Occupational HistoryOccupation Employer CommentCLERK DEREK BRUSHSocial History Main Topics Smoking status: Never Smoker Smokeless status: Never Used Alcohol use: Yes Comment: SocialOther Topics ConcernCaffeine Concern NoACTIVE PROBLEM LISTFibrocystic BreastStricture, UrethraREVIEW OF SYSTEMS:REVIEW OF SYSTEMSGENERAL: No weight loss, malaise or feversPHYSICAL EXAM:General Appearance: Well appearing, alert, in no acute distress,well-hydrated, well nourished..PROCEDURE IN-OFFICE: Consent for urethral dilation signed.FINDINGS AND PROCEDURE: The patient was placed in the lithotomy position.The genitalia area was prepped and draped and 2% Anestacon was wasinjected into the urethra. A 18 Pakistani [place] female sound was gentlyintroduced into the bladder. The urethra was sequentially gently dilatedthrough 30 Pakistani. This was well tolerated by the patient and she was senthome with a single dose of an antibiotic. She is to call if sheexperiences any problems.PRESCRIPTION THIS VISIT:Orders Placed This Encounter UA Dip benzonatate (TESSALON PERLE) 100 mg capsule citalopram (CELEXA) 40 mg tablet YUVAFEM 10 mcg tab vaginal tablet Sig: as needed. oxybutynin ER (DITROPAN XL) 15 mg 24 hr Extended Rel Tab MELATONIN/PYRIDOXINE (MELATONIN, WITH B6, ORAL) Sig: Take by mouth. CHOLECALCIFEROL, VITAMIN D3, (VITAMIN D3 ORAL) Sig: Take by mouth. L.ACID/L.CASEI/B.BIF/B.L ON/FOS (PROBIOTIC BLEND ORAL) Sig: Take by mouth.(The purpose of any medications prescribed on this visit, mode ofadministration, and side effects were discussed with the patient.)ASSESSMENT/PLAN :1. Urinary tract infection without hematuria, site unspecified - ICD9:599.0, ICD10: N39.0 (primary diagnosis)acute- UA DIP B/O2. Urethral stricture, unspecified stricture type - ICD9: 598.9, ICD10:N35.9Nikki Geller, ZOHAIB [facility] Vital Signs Date Time Vital Sign Value Performing Clinician Faci lity 02-12-2025 17:15-0400 Body temperature 97.3 [degF] Dr. Jennifer Sewell DO Work Phone: [facility] 02-12-2025 17:15-0400 Diastolic blood pressure 80 mm[Hg] Dr. Jennifer Sewell DO Work Phone: [facility] 02-12-2025 17:15-0400 Heart rate 70 /min Dr. Jennifer Sewell DO Work Phone: [facility] 02-12-2025 17:15-0400 Respiratory rate 18 /min Dr. Jennifer Sewell DO Work Phone: [facility] 02-12-2025 17:15-0400 SaO2% (BldA) [Mass fraction] 99 % Dr. Jennifer Sewell DO Work Phone: [facility] 02-12-2025 17:15-0400 Systolic blood pressure 127 mm[Hg] Dr. Jennifer Sewell DO Work Phone: [facility] 02-12-2025 15:04-0400 Body mass index (BMI) [Ratio] 28.3 kg/m2 Dr. Jennifer Sewell DO Work Phone: [facility] 02-12-2025 15:04-0400 Body weight 84.[address] Jennifer Sewell DO Work Phone: [facility] 02-12-2025 14:59-0400 Body height 172.[address] Jennifer Sewell DO Work Phone: [facility] 10-05-2024 10:40-0400 Body height 171.5 cm Nikki Bernhart APPAREL MANAGER.STRUCTURAL STEEL TRADES WORKER Work Phone: [facility] 08-02-2024 10:09-0400 Body height 171.5 cm Nikki Bernhart APPAREL MANAGER.STRUCTURAL STEEL TRADES WORKER Work Phone: [facility] 08-02-2024 10:09-0400 Body mass index (BMI) [Ratio] 29.73 kg/m2 Nikki Bernhart APPAREL MANAGER.STRUCTURAL STEEL TRADES WORKER Work Phone: [facility] 08-02-2024 10:09-0400 Body weight 87.4 kg Nikki Bernhart APPAREL MANAGER.STRUCTURAL STEEL TRADES WORKER Work Phone: [facility] 03-08-2024 10:52-0500 Body height 171.5 cm Nikki Bernhart APPAREL MANAGER.STRUCTURAL STEEL TRADES WORKER Work Phone: [facility] 03-08-2024 10:52-0500 Body mass index (BMI) [Ratio] 30.24 kg/m2 Nikki Bernhart APPAREL MANAGER.STRUCTURAL STEEL TRADES WORKER Work Phone: [facility] 03-08-2024 10:52-0500 Body weight 88.9 kg Nikki Bernhart APPAREL MANAGER.STRUCTURAL STEEL TRADES WORKER Work Phone: [facility] 12-29-2023 09:52-0400 Body height 171.5 cm Nikki Bernhart APPAREL MANAGER.STRUCTURAL STEEL TRADES WORKER Work Phone: [facility] 12-29-2023 09:52-0400 Body mass index (BMI) [Ratio] 29.97 kg/m2 Nikki Bernhart APPAREL MANAGER.STRUCTURAL STEEL TRADES WORKER Work Phone: [facility] 12-29-2023 09:52-0400 Body weight 88.1 kg Nikki Trevinot APPAREL MANAGER.STRUCTURAL STEEL TRADES WORKER Work Phone: [facility] 12-29-2023 09:52-0400 Diastolic blood pressure 59 mm[Hg] Nikki Bernhart APPAREL MANAGER.STRUCTURAL STEEL TRADES WORKER Work Phone: [facility] 12-29-2023 09:52-0400 Heart rate 54 /min Nikki Bernhart APPAREL MANAGER.STRUCTURAL STEEL TRADES WORKER Work Phone: [facility] 12-29-2023 09:52-0400 SaO2% (BldA) [Mass fraction] 98 % Nikki Williamhart APPAREL MANAGER.STRUCTURAL STEEL TRADES WORKER Work Phone: [facility] 12-29-2023 09:52-0400 Systolic blood pressure 138 mm[Hg] Nikki Bernhart APPAREL MANAGER.STRUCTURAL STEEL TRADES WORKER Work Phone: [facility] 10-02-2023 10:02-0400 Body height 171.5 cm Nikki Williamhart APPAREL MANAGER.STRUCTURAL STEEL TRADES WORKER Work Phone: [facility] 07-25-2023 08:12-0400 Body height 171.5 cm Nikki Williamhart APPAREL MANAGER.STRUCTURAL STEEL TRADES WORKER Work Phone: [facility] 07-25-2023 08:12-0400 Body weight 91.3 kg Nikki Trevinot APPAREL MANAGER.STRUCTURAL STEEL TRADES WORKER Work Phone: [facility] 07-21-2023 17:19-0400 Body temperature 98.3 [degF] [facility] 07-21-2023 17:19-0400 Diastolic blood pressure 62 mm[Hg] [facility] 07-21-2023 17:19-0400 Heart rate 62 /min [facility] 07-21-2023 17:19-0400 Respiratory rate 16 /min [facility] 07-21-2023 17:19-0400 SaO2% (BldA) [Mass fraction] 100 % [facility] 07-21-2023 17:19-0400 Systolic blood pressure 126 mm[Hg] [facility] 07-21-2023 14:02-0400 Body height 172.72 cm [facility] 07-21-2023 14:02-0400 Body mass index (BMI) [Ratio] 32.9 kg/m2 [facility] 07-21-2023 14:02-0400 Body weight 98.3 kg [facility] 01-21-2023 13:39-0400 Body height 171.5 cm Nikki Bernhart APPAREL MANAGER.STRUCTURAL STEEL TRADES WORKER Work Phone: [facility] 01-21-2023 13:39-0400 Diastolic blood pressure 60 mm[Hg] Nikki Bernhart APPAREL MANAGER.STRUCTURAL STEEL TRADES WORKER Work Phone: [facility] 01-21-2023 13:39-0400 Systolic blood pressure 110 mm[Hg] Nikki Bernhart APPAREL MANAGER.STRUCTURAL STEEL TRADES WORKER Work Phone: [facility] 11-12-2022 14:18-0400 Body height 171.5 cm Nikki Bernhart APPAREL MANAGER.STRUCTURAL STEEL TRADES WORKER Work Phone: [facility] 08-27-2022 13:48-0400 Body height 171.5 cm Nikki Bernhart APPAREL MANAGER.STRUCTURAL STEEL TRADES WORKER Work Phone: [facility] 08-27-2022 13:48-0400 Body weight 89.58 kg Nikki Bernhart APPAREL MANAGER.STRUCTURAL STEEL TRADES WORKER Work Phone: [facility] 08-27-2022 13:48-0400 Diastolic blood pressure 60 mm[Hg] Nikki Bernhart APPAREL MANAGER.STRUCTURAL STEEL TRADES WORKER Work Phone: [facility] 08-27-2022 13:48-0400 Systolic blood pressure 102 mm[Hg] Nikki Bernhart APPAREL MANAGER.STRUCTURAL STEEL TRADES WORKER Work Phone: [facility] 07-18-2022 20:00-0400 Respiratory rate 18 /min Dr. Jennifer Sewell Work Phone: [facility] 07-18-2022 19:00-0400 Diastolic blood pressure 60 mm[Hg] Dr. Jennifer Sewell Work Phone: [facility] 07-18-2022 19:00-0400 Heart rate 81 /min Dr. Jennifer Sewell Work Phone: [facility] 07-18-2022 19:00-0400 SaO2% (BldA) [Mass fraction] 95 % Dr. Jennifer Sewell Work Phone: [facility] 07-18-2022 19:00-0400 Systolic blood pressure 135 mm[Hg] Dr. Jennifer Sewell Work Phone: [facility] 07-18-2022 18:58-0400 Inhaled oxygen flow rate 2 L/min Dr. Jennifer Sewell Work Phone: [facility] 07-18-2022 17:59-0400 Body height 170.[address] Jennifer Sewell Work Phone: [facility] 07-18-2022 17:59-0400 Body mass index (BMI) [Ratio] 32.6 kg/m2 Dr. Jennifer Sewell Work Phone: [facility] 07-18-2022 17:59-0400 Body temperature 98.7 [degF] Dr. Jennifer Sewell Work Phone: [facility] 07-18-2022 17:59-0400 Body weight 94.[address] Jennifer Sewell Work Phone: [facility] 04-04-2022 11:17-0500 Body height 171.5 cm Nikki Geller APRN.STRUCTURAL STEEL TRADES WORKER Work Phone: [facility] 04-04-2022 11:17-0500 Body weight 92.99 kg Nikki Geller APPAREL MANAGER.STRUCTURAL STEEL TRADES WORKER Work Phone: [facility] 04-04-2022 11:17-0500 Diastolic blood pressure 65 mm[Hg] Nikki Geller APRN.STRUCTURAL STEEL TRADES WORKER Work Phone: [facility] 04-04-2022 11:17-0500 Heart rate 50 /min Nikki Geller APRN.STRUCTURAL STEEL TRADES WORKER Work Phone: [facility] 04-04-2022 11:17-0500 Systolic blood pressure 123 mm[Hg] Nikki Bernhart APPAREL MANAGER.STRUCTURAL STEEL TRADES WORKER Work Phone: [facility] 09-06-2021 08:43-0400 Body height 171.5 cm Nikki Trevinot APPAREL MANAGER.STRUCTURAL STEEL TRADES WORKER Work Phone: [facility] 09-06-2021 08:43-0400 Body weight 88.45 kg Nikki Geller APPAREL MANAGER.STRUCTURAL STEEL TRADES WORKER Work Phone: [facility] 09-06-2021 08:43-0400 Diastolic blood pressure 62 mm[Hg] Nikki Williamhart APPAREL MANAGER.STRUCTURAL STEEL TRADES WORKER Work Phone: [facility] 09-06-2021 08:43-0400 Systolic blood pressure 122 mm[Hg] Nikki Ericksont APPAREL MANAGER.STRUCTURAL STEEL TRADES WORKER Work Phone: [facility] Encounters Encounter Date Encounter Type Care Provider Facility Start: 02-22-2025 End: 02-22-2025 ambulatory NIKKI GELLER Facility:[facility] Start: 02-12-2025 End: 02-12-2025 Emergency department patient visit Jose Howell Facility:[facility] Start: 12-14-2024 End: 12-14-2024 Patient encounter procedure Nikki Geller APPAREL MANAGER.STRUCTURAL STEEL TRADES WORKER Work Phone: Urology Comment on above: Recurrent UTI (Prima ry Dx); Other urethral stricture, female Start: 12-14-2024 End: 12-14-2024 ambulatory JENNIFER A MALYS Facility:[facility] Start: 12-11-2024 End: 12-13-2024 Refill Nikki Geller APPAREL MANAGER.STRUCTURAL STEEL TRADES WORKER Work Phone: Urology Comment on above: Refill Request Start: 10-05-2024 End: 10-05-2024 Patient encounter procedure Nikki Geller APPAREL MANAGER.STRUCTURAL STEEL TRADES WORKER Work Phone: Urology Comment on above: Other urethral stric ture, female (Primary Dx); Urge incontinence Start: 10-05-2024 End: 10-05-2024 ambulatory JENNIFER A MALYS Facility:[facility] Start: 08-02-2024 End: 08-02-2024 ambulatory JENNIFER A MALYS Facility:[facility] Start: 08-02-2024 End: 08-02-2024 Patient encounter procedure Nikki Thomasalycia APPAREL MANAGER.STRUCTURAL STEEL TRADES WORKER Work Phone: Urology Comment on above: Other urethral stric ture, female (Primary Dx); Urge incontinence Start: 05-18-2024 End: 05-18-2024 [facility] Facility:[facility] Start: 05-18-2024 End: 05-18-2024 Patient encounter procedure Nikkihenry Thomasalycia APPAREL MANAGER.STRUCTURAL STEEL TRADES WORKER Work Phone: Urology Comment on above: Other urethral stric ture, female (Primary Dx); Recurrent UTI Start: 03-11-2024 End: 03-11-2024 Telephone encounter Nikki Geller APRN.STRUCTURAL STEEL TRADES WORKER Work Phone: Urology Comment on above: Results Start: 03-08-2024 End: 03-08-2024 ambulatory [facility] Facility:[facility] Start: 03-08-2024 End: 03-08-2024 Patient encounter procedure Nikki Williamalycia APPAREL MANAGER.STRUCTURAL STEEL TRADES WORKER Work Phone: Urology Comment on above: Other urethral stric ture, female (Primary Dx); Urge incontinence Start: 12-29-2023 End: 12-29-2023 Patient encounter procedure Nikki Williamalycia APPAREL MANAGER.STRUCTURAL STEEL TRADES WORKER Work Phone: Urology Comment on above: Other urethral stric ture, female (Primary Dx); Urge incontinence Start: 12-02-2023 Refill Tosha da silva MD Work Phone: Urology Comment on above: Refill Request Start: 10-02-2023 End: 10-02-2023 Patient encounter procedure Nikki Williamalycia APPAREL MANAGER.STRUCTURAL STEEL TRADES WORKER Work Phone: Urology Comment on above: Other urethral stric ture, female (Primary Dx); Urge incontinence Start: 10-02-2023 End: 10-02-2023 ambulatory NIKKI GELLER Facility:[facility] Start: 07-25-2023 Telephone encounter Nikki cho APRN.STRUCTURAL STEEL TRADES WORKER Work Phone: Urology Comment on above: Appointment Start: 07-25-2023 End: 07-25-2023 Patient encounter procedure Nikki Geller APPAREL MANAGER.STRUCTURAL STEEL TRADES WORKER Work Phone: Urology Comment on above: Other urethral stric ture, female (Primary Dx); Urge incontinence; Recurrent UTI Start: 07-21-2023 End: 07-21-2023 Emergency department patient visit [facility] Work Phone: Start: 04-02-2023 End: 04-02-[address] [facility] Work Phone: Start: 04-02-2023 End: 04-02-[address] [facility] Work Phone: Start: 04-01-2023 End: 04-01-2023 ambulatory PRAIRIE DU ROCHER ALAN Facility:[facility] Start: 02-01-2023 Refill Tosha da silva MD Work Phone: Urology Comment on above: Refill Request Start: 01-21-2023 End: 01-21-2023 Patient encounter procedure Nikki Williamalycia APPAREL MANAGER.STRUCTURAL STEEL TRADES WORKER Work Phone: Urology Comment on above: Other urethral stric ture, female (Primary Dx); Urge incontinence Start: 11-12-2022 End: 11-12-2022 Patient encounter procedure Nikki Williamalycia APPAREL MANAGER.STRUCTURAL STEEL TRADES WORKER Work Phone: Urology Comment on above: Other urethral stric ture, female (Primary Dx); Urge incontinence Start: 08-27-2022 End: 08-27-2022 Patient encounter procedure Nikki Thomascarlenet APPAREL MANAGER.STRUCTURAL STEEL TRADES WORKER Work Phone: Urology Comment on above: Other urethral stric ture, female (Primary Dx); Urge incontinence Start: 07-18-2022 End: 07-18-2022 Emergency department patient visit Dr. Jennifer Sewell Work Phone: [facility] Start: 07-05-2022 Refill Nikki licona APRN.STRUCTURAL STEEL TRADES WORKER Work Phone: Urology Comment on above: Med Change Request Start: 07-02-2022 End: 07-02-2022 Non-patient / Non-visit Dr. Jennifer Sewell Work Phone: [facility] Start: 07-02-2022 End: 07-02-[address] [facility]Neurology Start: 06-28-2022 End: 06-28-[address] Jennifer Sewell Work Phone: [facility] Work Phone: Start: 06-28-2022 End: 06-28-[address] [facility] Start: 06-26-2022 End: 06-26-[address] [facility] Work Phone: Start: 06-26-2022 End: 06-26-[address] [facility]Labor[facility],Fu ture Start: 06-17-2022 Refill Nikki licona APPAREL MANAGER.STRUCTURAL STEEL TRADES WORKER Work Phone: Urology Comment on above: Med Change Request Start: 06-17-2022 Telephone encounter Nikki cho APPAREL MANAGER.STRUCTURAL STEEL TRADES WORKER Work Phone: Urology Comment on above: Appointment Start: 04-04-2022 End: 04-04-2022 Patient encounter procedure Nikki Geller APPAREL MANAGER.STRUCTURAL STEEL TRADES WORKER Work Phone: Urology Comment on above: Other urethral stric ture, female (Primary Dx); Urge incontinence Start: 03-27-2022 End: 03-27-[address] [facility] Work Phone: Start: 03-27-2022 End: 03-27-[address] [facility] Start: 09-06-2021 End: 09-06-2021 Patient encounter procedure Nikki Geller APRN.STRUCTURAL STEEL TRADES WORKER Work Phone: Urology Comment on above: Other urethral stric ture, female (Primary Dx); Urge incontinence Start: 08-30-2021 Telephone encounter Nikki cho APPAREL MANAGER.STRUCTURAL STEEL TRADES WORKER Work Phone: Urology Comment on above: Appointment Start: 10-06-2018 Patient encounter procedure NIKKI GELLER Facility:[facility] Start: 07-30-2018 End: 07-30-2018 Patient encounter procedure NIKKI GELLER Facility:[facility] Start: 05-19-2018 End: 05-19-2018 Patient encounter procedure NIKKI GELLER Facility:[facility] Start: 03-10-2018 End: 03-10-2018 Patient encounter procedure NIKKI GELLER Facility:[facility] Start: 12-30-2017 End: 12-30-2017 Patient encounter procedure NIKKI GELLER Facility:[facility] Start: 10-28-2017 End: 10-28-2017 Patient encounter procedure NIKKI GELLER Facility:[facility] Start: 10-20-2017 Patient encounter procedure NIKKI GELLER Facility:[facility] Start: 08-11-2017 End: 08-11-2017 Patient encounter procedure NIKKI GELLER Facility:[facility] Procedures Date Procedure Procedure Detail Performing Clinician Start: 02-12-2025 Radiologic exam knee complete 4/more views Dr. Jennifer Sewell DO Work Phone: Start: 12-14-2024 Follow-up visit Follow Up NIKKI GELLER Start: 07-21-2023 CT of chest without contrast Start: 07-21-2023 CT of face Start: 07-21-2023 CT of head without contrast Start: 04-02-2023 Screening mammography Start: 11-12-2022 Urnls dip stick/tabl et rgnt auto w/o microscopy Nikki Geller APPAREL MANAGER.STRUCTURAL STEEL TRADES WORKER Work Phone: Start: 08-27-2022 Urnls dip stick/tabl et rgnt auto w/o microscopy Nikki Geller APPAREL MANAGER.STRUCTURAL STEEL TRADES WORKER Work Phone: Start: 03-27-2022 Screening mammography Start: 09-06-2021 Urnls dip stick/tabl et rgnt auto w/o microscopy Nikki Geller APPAREL MANAGER.STRUCTURAL STEEL TRADES WORKER Work Phone: Start: 02-15-2013 Melinda cho APRN.STRUCTURAL STEEL TRADES WORKER Work Phone: Plan of Treatment Date Care Activity Detail Author Start: 07-20-2033 Urine microalbumin profile DTaP,Tdap,Td Vaccine (2 - Td or Tdap) [facility] Start: 2026 RSV Vaccine (1 - 1-d ose 75+ series) RSV Vaccine (1 - 1-dose 75+ series) [facility] Start: 02-22-2025 End: 02-22-2025 Patient encounter procedure 02/22/2025 11:15 AM EDT Office Visit Urology [address] [place] [address] Nikki Geller APRN.STRUCTURAL STEEL TRADES WORKER [address] [place] [address] 10 Week FU Urology Comment on above: 10 Week FU Start: 02-12-2025 [facility] Start: 01-03-2025 Influenza vaccination [facility] Start: 12-14-2024 End: 12-14-2024 Patient encounter procedure 12/14/2024 11:00 AM EDT Office Visit Urology [address] [place] [address] Nikki Geller APRN.STRUCTURAL STEEL TRADES WORKER [address] [place] [address] 10 week f/u Urology Comment on above: 10 week f/u Start: 10-04-2024 End: 10-04-2024 Patient encounter procedure 10/04/2024 9:45 AM EDT Office Visit Urology [address] [place] [address] Nikki Geller APRN.STRUCTURAL STEEL TRADES WORKER [address] [id number] 10 week follow up Urology Comment on above: 10 week follow up Start: 08-02-2024 End: 08-02-2024 Patient encounter procedure 08/02/2024 10:00 AM EDT Office Visit Urology [address] [place] [address] Nikki Geller APRN.STRUCTURAL STEEL TRADES WORKER [address] [facility] [place] [address] 10 week follow up Urology Comment on above: 10 week follow up Start: 07-13-2024 Covid-19 Vaccine () Covid-19 Vaccine () [facility] Start: 05-18-2024 End: 05-18-2024 Patient encounter procedure 05/18/2024 10:45 AM EST Office Visit Urology [address] [place] [id number] Nikki Geller, APPAREL MANAGER.STRUCTURAL STEEL TRADES WORKER [address] [place] [id number] 10 week Urology Comment on above: 10 week Start: 05-05-2024 Advance Directive Discussion Advance Directive Discussion [facility] Start: 05-05-2024 Medicare Advantage Annual Wellness Visit Medicare Advantage Annual Wellness Visit [facility] Start: 03-08-2024 End: 03-08-2024 Patient encounter procedure 03/08/2024 10:45 AM EST Office Visit Urology [address] [place] [address] Nikki Geller, APPAREL MANAGER.STRUCTURAL STEEL TRADES WORKER [address] [place] [id number] 10 week follow up Urology Comment on above: 10 week follow up Start: 01-04-2024 Influenza vaccination [facility] Start: 12-18-2023 End: 12-18-2023 Patient encounter procedure 12/18/2023 10:00 AM EDT Office Visit Urology [address] [place] [phone] Nikki Geller, APPAREL MANAGER.STRUCTURAL STEEL TRADES WORKER [address] [place] [address] 10 week follow up Urology Comment on above: 10 week follow up Start: 06-22-2023 Covid-19 Vaccine () Covid-19 Vaccine () [facility] Start: 05-05-2023 Advance Directive Discussion Advance Directive Discussion [facility] Start: 05-05-2023 Behavioral Health Screening Behavioral Health Screening [facility] Start: 05-05-2023 Depression Assessment Depression Ass essment [facility] Start: 01-03-2023 Influenza vaccination [facility] Start: 06-28-2022 COVID-19 VACCINE (6 - Moderna series) COVID-19 VACCINE (6 - Moderna series) [facility] Start: 05-05-2022 ADVANCE DIRECTIVE DISCUSSION ADVANCE DIRECTIVE DISCUSSION [facility] Start: 05-05-2022 DEPRESSION ASSESSMENT DEPRESSION ASS ESSMENT [facility] Start: 01-03-2022 Influenza vaccination [facility] Start: 05-05-2021 ADVANCE DIRECTIVE DISCUSSION ADVANCE DIRECTIVE DISCUSSION [facility] Start: 05-05-2021 [facility]PRESS[facility] Start: 2016 BONE DENSITY BONE DENSITY [facility] Start: 2016 Bone Density Screening Bone Density Screening [facility] Start: 2016 Pneumococcal Vaccine : 65+ (1 - PCV) Pneumococcal Vaccine: 65+ (1 - PCV) [facility] Start: 2016 Pneumococcal Vaccine : 65+ (1 of 1 - PCV) Pneumococcal Vaccine: 65+ (1 of 1 - PCV) [facility] Start: 2016 PNEUMOCOCCAL: 65+ (1 - PCV) PNEUMOCOCCAL: 65+ (1 - PCV) [facility] Start: 2016 PNEUMOVAX AGE 65 AND OVER WITH 5YR LOOKBACK (#1) PNEUMOVAX AGE 65 AND OVER WITH 5YR LOOKBACK (#1) [facility] Start: 2016 Screening for osteoporosis Bone Density Screening [facility] Start: 02-15-2014 Mammography [facility] Start: 02-15-2014 Screening for malign ant neoplasm of breast Mammogram Screening [facility] Start: 2011 RSV Vaccine (1 - 1-d ose 60+ series) RSV Vaccine (1 - 1-dose 60+ series) [facility] Start: 2001 Pneumococcal Vaccine : 50+ (1 of 1 - PCV) Pneumococcal Vaccine: 50+ (1 of 1 - PCV) [facility] Start: 2001 SHINGRIX VACCINE (1 of 2) SHINGRIX VACCINE (1 of 2) [facility] Start: 1996 COLOGUARD (FIT-DNA) COLOGUARD (FIT-D NA) [facility] Start: 1996 Colonoscopy COLONOSCOPY [facility] Start: 1996 COLORECTAL CANCER SCREENING COLORECTAL CANCER SCREENING [facility] Start: [address] COLONOGRAPHY [facility] Start: 1996 DIABET[facility]EN [facility] Start: 1996 Diabetes Screening Diabetes Screenin g [facility] Start: 1996 FECAL OCCULT BLOOD FECAL OCCULT BLOO D [facility] Start: 1996 Lipid 1996 panel - S daniel or Plasma Lipid Screening [facility] Start: 1996 Lipid panel Lipid Screening [facility] Start: 1996 LIPID SCREEN LIPID SCREEN [facility] Start: 1996 Screening for malign ant neoplasm of colon [facility] Start: 1996 SIGMOIDOSCOPY SIGMOIDOSCOPY [facility] Start: 1970 Urine microalbumin profile [facility] Start: 1969 Anxiety Screening Anxiety Screening [facility] Start: 1969 Depression Screening Depression Scre ening [facility] Start: 1969 HEPATITIS C SCREENING HEPATITIS C [facility] Start: 1969 Hepatitis C screening Hepatitis C [facility] Start: 1963 Adult depression screening assessment DEPRESSION SCREENING [facility] Bacteria identified in Urine by Culture URINE CULTURE Microbiology Routine Other urethral stricture, female Ordered: 03/08/2024 [facility] Work Phone: Comment on above: Ordered: 03/08/2024 Patient Education [facility] Work Phone: Patient referral [facility] Work Phone: [facility] Immunizations Immunization Date Immunization Notes Care Provider Sandy saha 07-21-2023 tetanus toxoid, redu silvia diphtheria toxoid, and acellular pertussis vaccine, adsorbed [facility] Payers Date Payer Category Payer Self-pay [id number] 2021 Medicare AET[employer] MEDICARE A ETNA MEDICARE PPO [id number] 2021-Present [phone] [address] [place] [address] PPO [id number] 2021 Medicare [employer]ET[employer] MEDICARE A ETNA MEDICARE PPO [id number] 2021-Present [phone] [address] [place] [address] PPO [id number] 2021 Medicare (Managed Care) AETNA [place] [facility] [id number] 2015 Private Health Insurance [id number] 1950 Unknown [id number] 1950 Unknown [id number] 278 1950 Unknown [id number] 278 1950 Unknown [id number] 278 1950 Unknown [id number] 278 1950 Unknown [id number] 278 1950 Unknown [id number] 278 1950 Unknown [id number] 278 Medicare MEDICARE PART A B [id number] Unknown [id number] Unknown [id number] Social History Date Type Detail Facility Start: 01-24-2022 End: 02-12-2025 Tobacco smoking status NHIS Never smoked tobacco [facility] Work Phone: Start: 06-12-2021 End: 12-14-2024 Alcohol intake Current drinker of alcohol (finding) [facility] Start: 1950 Sex Assigned At Not on file [facility] Start: 1950 Sex Assigned At Female W [facility] Start: 01-24-2022 Tobacco use and exposure Smokeless tobacco non-user [facility] Start: 07-18-2022 End: 07-21-2023 Tobacco smoking status NHIS Unknown if ever smoked [facility] Start: 11-12-2022 End: 10-02-2023 History of Social function [facility] Start: 11-12-2022 End: 10-02-2023 Tobacco use panel [facility] Start: 04-05-2012 National Score (1-100), lower number is lower risk 48 [facility] Clinical Notes 08-30-2021 to 02-22-2025 Note Date & Type Note Facility 02-22-2025 Note HNO ID: [id number] Author: NIKKI GELLER APRN.STRUCTURAL STEEL TRADES WORKER Service: ? Author Type: Nurse Practitioner Type: Progress Notes Filed: 02/22/2025 11:50 Note Text: 02/22/2025 PCP: DO Estella Menonn is a 74 year old female who presents for an established patient visit. Patient with a history of urethral dilations. Occasional frequency and decreased stream but stable. FREQUENCY: she has frequency of urination. Abdominal Pain: None Fever: none Chills: No Dysuria: frequency Hematuria: None Nocturia: No Urgency: Usually No results found for: HB, HCT, WBC, PSA Current Outpatient Medications Medication Sig vitamin D3/vitamin K2, MK4, (K2 PLUS D3 PO) Take by mouth. darifenacin ER (ENABLEX) 15 mg 24 hr tablet TAKE 1 TABLET BY MOUTH EVERY DAY TURMERIC ORAL Take by mouth. MELATONIN ORAL Take by mouth. CHOLECALCIFEROL, VITAMIN D3, (VITAMIN D3 ORAL) Take by mouth. L.ACID/L.CASEI/B.BIF/B.KWABENA/FOS (PROBIOTIC BLEND ORAL) Take by mouth. citalopram (CELEXA) 20 mg tablet Take 20 mg by mouth once daily. Aspirin 81 mg Tab Take 81 mg by mouth once daily. MULTIVITAMIN/IRON/FOLIC ACID (CENTRUM ULTRA WOMEN'S ORAL) Take by mouth once daily. estradiol (ESTRACE) 0.01 % (0.1 mg/gram) vaginal cream USE 1 GRAM VAGINALLY 3 TIMES WEEKLY citalopram (CELEXA) 40 mg tablet (Patient not taking: Reported on 12/14/2024) amoxicillin-clavulanate potassium (AUGMENTIN) 875-125 mg per tablet Take 1 tablet by mouth every 12 hours. (Patient not taking: Reported on 02/22/2025) oxyCODONE-acetaminophen (PERCOCET) 5-325 mg tablet 1 TAB ORALLY EVERY 6 HOURS NEEDED NEEDED FOR PAIN FOR 3 DAYS (Patient not taking: Reported on 12/14/2024) No current facility-administered medications for this visit. ALLERGIES Allergen Reactions Sulfa (Sulfonamide * PAST MEDICAL HISTORY Diagnosis Date Postmenopausal atrophic vaginitis Stricture, urethra OLIVER (stress urinary incontinence, female) Urge incontinence UTI (urinary tract infection) PAST SURGICAL HISTORY Procedure Laterality Date COLONOSCOPY 12/2014 EXC CYST/ABERRANT BREAST TISSUE OPEN 1/> LESION 1995 R breast benign- lipomas by description GALLBLADDER/EF KNEE SURGERY HX bursis sac removed TONSILLECTOMY HX TUBAL LIGATION HX 1981 bilateral VAGINAL DELIVERY HX FAMILY HISTORY Problem Relation Age of Onset Colon Cancer Mother Diabetes Mother Colon Cancer Father other (Lung Cancer) Father other (Throat Cancer) Father Breast Cancer Maternal Aunt #1) 60 @ dx. living Alzheimer's Disease Maternal Aunt 60's @ dx. Living Breast Cancer Maternal Aunt #2) details unknown SOCIAL HISTORY[1] ACTIVE PROBLEM LIST Fibrocystic Breast Other Urethral Stricture, Female Urge Incontinence REVIEW OF SYSTEMS: REVIEW OF SYSTEMS GENERAL: No weight loss, malaise or fevers PHYSICAL EXAM: General Appearance: Well appearing, alert, in no acute distress, well-hydrated, well nourished.. FINDINGS AND PROCEDURE: The patient was placed in the lithotomy position. The genitalia area was prepped and draped and 2% Anestacon was was injected into the urethra. A 14 Pakistani [place] female sound was gently introduced into the bladder. The urethra was sequentially gently dilated through 28 Pakistani. This was well tolerated by the patient and she was sent home with a single dose of an antibiotic. She is to call if she experiences any problems. PRESCRIPTION THIS VISIT: Orders Placed This Encounter estradiol (ESTRACE) 0.01 % (0.1 mg/gram) vaginal cream Sig: USE 1 GRAM VAGINALLY 3 TIMES WEEKLY Dispense: 42.5 g Refill: 3 ASSESSMENT/PLAN: 1. Other urethral stricture, female - ICD9: 598.8, ICD10: N35.82 (primary diagnosis) 2. Urge incontinence - ICD9: 788.31, ICD10: N39.41 3. Recurrent UTI - ICD9: 599.0, ICD10: N39.0 - ESTRADIOL 0.01% (0.1 MG/GRAM) VAGINAL CREAM Nikki Geller APRN.STRUCTURAL STEEL TRADES WORKER [1] Social History Tobacco Use Smoking status: Never Smokeless tobacco: Never Substance Use Topics Alcohol use: Yes Comment: Social Drug use: No [facility] 02-12-[address] [facility] 02-12-2025 Radiology Diagnostic study note [facility] Imaging Services [facility] [place], [place] [address] Knee 4 or More Views MR#: [id number] Acct: [id number] Name: ESTLELA JOSEPH Rep #: [id number] : 1950 F 74 From: Emma Ratliff MD PCP: Dr. Jennifer Sewell DO Status: REG ER Study:Knee 4 or More Views Date of Exam: 02/12/25 Exam# [id number] Ordering Dr: Jose Howell DO PROCEDURE: KNEE 4 OR MORE VIEWS 02/12/2025 REASON FOR EXAM: INJURY/PAIN TECHNIQUE: Procedure Code: RADKN Modality: DX Procedure: KNEE 4 OR MORE VIEWS Laterality: Left COMPARISON: None FINDINGS: No displaced fracture or traumatic malalignment. There is a small knee joint effusion. Bone mineral density is subjectively normal. There is moderate joint space narrowing which is most pronounced in thelateral compartment. RAD/Knee 4 or More Views IMPRESSION: No acute osseous abnormality of the left knee. Moderate osteoarthritis. Reading Location: [id number] CC: Dr. Jose Howell DO; Dr. Jennifer Sewell DO ~ Campaign Advisor: Signed [facility] 02-12-2025 Discharge summary Note Date/Time February 12, 2025 5:15pm [facility] Medical Records Department [address] [place] [id number] Emergency Department Summary 02/12/25 MR#: [id number] Acct: [id number] Name: ESTELLA JOSEPH Rep #:[id number] : 1950 74 From: Jose Guadalupe PCP: Dr. Jnenifer Sewell DO Status:DEP ER Location: ED HPI History of Present Illness HPI Narrative: Patient presents with left knee injury that occurred yesterday. Patient states she twisted her knee and then stepped down hard. Patient states the pain is mainly over the posterior aspect of her knee. Patient describes it as stabbing. Patient states it is worse with bending and better with rest. Patient admits to some tingling in her knee. Patient is unsure if she heard a snapping or popping sensation. Patient denies any weakness. Chief Complaint: Lower Extremity Injury Informant: patient Occured/Mechanism Comment: Twisted and stepped down hard on her knee Onset/Context/Timing Onset: Yesterday Context: Sudden Onset Timing: Continuous Quality of Pain: Stabbing Location: Left knee Worsened by: Bending Relieved by: Rest Associated Symptoms Associated Symptoms: Positive for Parasthesia; Negative for Weakness or Loss of Funtion PFSH PFSH Medical History no medical history no medical history Home Medications ?Medication ?Instructions ?Recorded ?Last Taken ?Type cholecalciferol (vitamin D3) 10 400 unit PO DAILY 11/16 Unknown History mcg (400 unit) capsule (Vitamin D3) citalopram 10 mg tablet 40 mg PO DAILY 04/10/15 Unkn own History melatonin 10 mg tablet,extended 10 mg PO DAILY 5 Unknown History release darifenacin 15 mg tablet,extended 15 mg PO DAILY 07/18 Unknown History release 24 hr estradiol 0.01% (0.1 mg/gram) See Rx Instructions .Rou te .COMPLEX 07/18/22 Unknown History vaginal cream meloxicam 15 mg tablet 15 mg PO BID 07/18/22 Unknow n History nitrofurantoin 1 cap PO DAILY 07/18/22 Unkn own History monohydrate/macrocrystals 100 mg capsule amoxicillin 875 mg-potassium 1 tab PO BID 7 days #14 t abs 07/21/23 Unknown Rx clavulanate 125 mg tablet oxycodone-acetaminophen 5 mg-325 1 tab PO Q6H PRN PRN Pain 3 days 07/21/23 Unknown Rx mg tablet #12 TABLETS Allergy/AdvReac Type Severity Reaction Status Date / Time Sulfa (Sulfonamide Allergy Other Verified 02/12/25 14:59 Antibiotics) Surgical History (Updated 02/12/25 @ 17:[address] Jose Howell DO) Hx of cholecystectomy Hx of tonsillectomy Hx of bursectomy H/O medial meniscus repair of right knee Social History housing: house Smoking Status: Never smoker ROS ROS ED Constitutional Constitutional ED: Denies chills or fever(s) Eyes Eyes: Denies blurry vision or change in vision ENT ENT ED: Denies rhinorrhea or sore throat Cardiovascular Cardiovascular: Denies chest pain or palpitations Respiratory/Chest Respiratory/Chest: Denies cough or dyspnea Gastrointestinal Gastrointestinal: Denies nausea or vomiting Genitourinary Genitourinary ED: Denies dysuria or hematuria Musculoskeletal Musculoskeletal: Denies back pain or neck pain Integumentary Denies abscess or rash Neurologic Neurologic: Denies headache(s) or weakness Allergic/Immunologic Allergic/Immunologic ED: Denies mouth swelling or urticaria EXAM Physical Exam Const Vital Signs: 02/12/25 14:59 Temperature 97.3 F L Temperature Source Temporal Pulse Rate 70 Respiratory Rate 18 Blood Pressure 130/55 H Blood Pressure Mean 80 Pulse Ox 99 Oxygen Delivery Method Room Air Positive well nourished and well developed General Appearance ED: well developed and NAD HEENT Reports moist mucous membranes normocephalic and atraumatic Neck full ROM Extremity Extremity Narrative: There is tenderness over the left knee. There is a mild edema. There is no deformity noted. There is a mild effusion noted. Range of motion was limited in flexion of the left knee secondary to pain. There is no laxity appreciated. Varus and valgus stress test were negative. Rhett's test was negative. Thereis minimal pain with Lisa testing. Sensation was intact to light touch bilaterally in lower extremities. Strength is 5/5 bilaterally in the lower extremities. Extensor mechanism is intact. Neuro oriented x3, CN's II-XII intact bilaterally, moves all extremities and no sensory deficits noted Sensorium / Orientation: alert Motor Exam: strength 5/5 throughout Psych mental status grossly normal MDM MDM MDM Narrative Medical decision making narrative: Differential diagnosis includes fracture, sprain, meniscus injury, and effusion. X-rays of the left knee will be obtained to assess for fracture. Radiography Diagnostic Testing: X-rays of the left knee were obtained. There are 4 views. On my independent interpretation, there is no acute fracture. There is some mild degenerative changes noted. There is a small effusion noted. Radiologist also interpreted the x-ray and agrees. Treatment and Re-Evaluation Narrative: Patient was advised of her findings. Patient was instructed to ice and elevate the left knee. Patient states that she has meloxicam at home and has also been taking Tylenol which has been helping. Patient was instructed to follow-up withher primary care physician in 5 to 7 days. Patient was also instructed to follow-up with orthopedics in 5 to 7 days. Patient understood and was agreeablewith the plan. All questions were answered. Discharge Plan Triage Chief Complaint: Lower Extremity Injury ED Provider: Jose Howell Dx/Rx/DC Orders Clinical Impression: Knee pain, left, Elevated blood pressure reading Instructions: ED Meniscal Injury Knee Poss, ED Knee Sprain Prescriptions: No Action citalopram 10 MG tablet 40 mg PO DAILY cholecalciferol (vitamin D3) [Vitamin D3] 400 UNIT capsule 400 unit PO DAILY melatonin 10 MG tablet extended release 10 mg PO DAILY meloxicam 15 mg tablet 15 mg PO BID Patient Comments: TAKE 1 TABLET BY MOUTH EVERY DAY estradiol 0.01 % (0.1 mg/gram) cream See Rx Instructions .ROUTE .COMPLEX Patient Comments: USE 1 GRAM VAGINALLY 3 TIMES WEEKLY Rx Instructions: 1 applic vaginally 3x/week nitrofurantoin monohyd/m-cryst 100 mg capsule 1 cap PO DAILY Patient Comments: TAKE 1 CAPSULE BY MOUTH TWICE A DAY darifenacin 15 mg tablet extended release 24 hr 15 mg PO DAILY Patient Comments: TAKE 1 TABLET BY MOUTH EVERY DAY oxycodone-acetaminophen [oxycodone-acetaminophen] 5-325 mg tablet 1 tab PO Q6H PRN PRN (Reason: Pain) 3 Days Qty: 12 0RF amoxicillin-pot clavulanate 875-125 mg tablet 1 tab PO BID 7 Days Qty: 14 0RF Primary Care Provider: Jennifer Sewell Referrals: Jennifer Sewell DO [Primary Care Provider, Family Practice] - 5-7 Days Sukumar Benjamin DO [Med Staff - Active Staff, Orthopedics] - 5-7 Days Print Language: Burkinan Disposition Disposition: Home, Self Care Discharge Date/Time: 02/12/25 17:15 What to do if you have Problems For any increased pain, shortness of breath, bleeding, nausea or vomiting, chestpain, or any unexpected problems, contact your Primary Care Provider. Call [facility] ([phone]) or report to the closest Emergency Room. Call 911 if necessary. 02/12/252222 <Electronically signed by Jose Howell DO> Cosigner Signature (if applicable): CC: Dr. Jennifer Sewell DO ~ Signed [facility] Work Phone: 1(521) 905-464908-12-2025 NoteHNO ID: [id number] Author: NIKKI GELLER APRN.[employer] WORK[employer] Service: ? Author Type: Nurse Practitioner Type: Progress Notes Filed: 12/14/2024 11:20 Note Text: 12/14/2024 PCP: DO Estella Menon is a 74 year old female who presents for an established patient visit. Patient with a history of urethral dilations. Occasional frequency and decreased stream but stable. FREQUENCY: she has frequency of urination. Abdominal Pain: None Fever: none Chills: No Dysuria: frequency Hematuria: None Nocturia: No Urgency: Usually No results found for: HB, HCT, WBC, PSA Current Outpatient Medications Medication Sig vitamin D3/vitamin K2, MK4, (K2 PLUS D3 PO) Take by mouth. darifenacin ER (ENABLEX) 15 mg 24 hr tablet TAKE 1 TABLET BY MOUTH EVERY DAY estradiol (ESTRACE) 0.01 % (0.1 mg/gram) vaginal cream USE 1 GRAM VAGINALLY 3 TIMES WEEKLY amoxicillin-clavulanate potassium (AUGMENTIN) 875-125 mg per tablet Take 1 tablet by mouth every 12 hours. TURMERIC ORAL Take by mouth. MELATONIN ORAL Take by mouth. CHOLECALCIFEROL, VITAMIN D3, (VITAMIN D3 ORAL) Take by mouth. L.ACID/L.CASEI/B.BIF/B.KWABENA/FOS (PROBIOTIC BLEND ORAL) Take by mouth. citalopram (CELEXA) 20 mg tablet Take 20 mg by mouth once daily. Aspirin 81 mg Tab Take 81 mg by mouth once daily. MULTIVITAMIN/IRON/FOLIC ACID (CENTRUM ULTRA WOMEN'S ORAL) Take by mouth once daily. citalopram (CELEXA) 40 mg tablet (Patient not taking: Reported on 12/14/2024) oxyCODONE-acetaminophen (PERCOCET) 5-325 mg tablet 1 TAB ORALLY EVERY 6 HOURS NEEDED NEEDED FOR PAIN FOR 3 DAYS (Patient not taking: Reported on 12/14/2024) No current facility-administered medications for this visit. ALLERGIES Allergen Reactions Sulfa (Sulfonamide * PAST MEDICAL HISTORY Diagnosis Date Postmenopausal atrophic vaginitis Stricture, urethra OLIVER (stress urinary incontinence, female) Urge incontinence UTI (urinary tract infection) PAST SURGICAL HISTORY Procedure Laterality Date COLONOSCOPY 12/2014 EXC CYST/ABERRANT BREAST TISSUE OPEN 1/> LESION 1995 R breast benign- lipomas by description GALLBLADDER/EF KNEE SURGERY HX bursis sac removed TONSILLECTOMY HX TUBAL LIGATION HX 1981 bilateral VAGINAL DELIVERY HX FAMILY HISTORY Problem Relation Age of Onset Colon Cancer Mother Diabetes Mother Colon Cancer Father other (Lung Cancer) Father other (Throat Cancer) Father Breast Cancer Maternal Aunt #1) 60 @ dx. living Alzheimer's Disease Maternal Aunt 60's @ dx. Living Breast Cancer Maternal Aunt #2) details unknown SOCIAL HISTORY[1] ACTIVE PROBLEM LIST Fibrocystic Breast Other Urethral Stricture, Female Urge Incontinence REVIEW OF SYSTEMS: REVIEW OF SYSTEMS GENERAL: No weight loss, malaise or fevers PHYSICAL EXAM: General Appearance: Well appearing, alert, in no acute distress, well-hydrated, well nourished.. FINDINGS AND PROCEDURE: The patient was placed in the lithotomy position. The genitalia area was prepped and draped and 2% Anestacon was was injected into the urethra. A 15 [place] female sound was gently introduced into the bladder. The urethra was sequentially gently dilated through 26 Pakistani. This was well tolerated by the patient and she was sent home with a single dose of an antibiotic. She is to call if she experiences any problems. PRESCRIPTION THIS VISIT: Orders Placed This Encounter vitamin D3/vitamin K2, MK4, (K2 PLUS D3 PO) Sig: Take by mouth. (The purpose of any medications prescribed on this visit, mode of administration, and side effects were discussed with the patient.) ASSESSMENT/PLAN: 1. Recurrent UTI - ICD9: 599.0, ICD10: N39.0 (primary diagnosis) 2. Other urethral stricture, female - ICD9: 598.8, ICD10: N35.82 -f/u in 10 weeks. Nikki Geller APRN.[employer] WORKER [1] Social History Tobacco Use Smoking status: Never Smokeless tobacco: Never Substance Use Topics Alcohol use: Yes Comment: Social Drug use: [facility]08-12-2025 History of Present illness Narrative* Nikki Geller APRN.[employer]AD[employer] WORKER - 12/14/2024 11:17 AM EDT 12/14/2024 PCP: DO Estella Menon is a 74 year old female who presents for an established patient visit. Patient with a history of urethral dilations. Occasional frequency and decreased stream but stable. FREQUENCY: she has frequency of urination. Abdominal Pain: None Fever: none Chills: No Dysuria: frequency Hematuria: None Nocturia: No Urgency: Usually No results found for: HB, HCT, WBC, PSA Current Outpatient Medications Medication Sig vitamin D3/vitamin K2, MK4, (K2 PLUS D3 PO) Take by mouth. darifenacin ER (ENABLEX) 15 mg 24 hr tablet TAKE 1 TABLET BY MOUTH EVERY DAY estradiol (ESTRACE) 0.01 % (0.1 mg/gram) vaginal cream USE 1 GRAM VAGINALLY 3 TIMES WEEKLY amoxicillin-clavulanate potassium (AUGMENTIN) 875-125 mg per tablet Take 1 tablet by mouth every 12hours. TURMERIC ORAL Take by mouth. MELATONIN ORAL Take by mouth. CHOLECALCIFEROL, VITAMIN D3, (VITAMIN D3 ORAL) Take by mouth. L.ACID/L.CASEI/B.BIF/B.KWABENA/FOS (PROBIOTIC BLEND ORAL) Take by mouth. citalopram (CELEXA) 20 mg tablet Take 20 mg by mouth once daily. Aspirin 81 mg Tab Take 81 mg by mouth once daily. MULTIVITAMIN/IRON/FOLIC ACID (CENTRUM ULTRA WOMEN'S ORAL) Take by mouth once daily. citalopram (CELEXA) 40 mg tablet (Patient not taking: Reported on 12/14/2024) oxyCODONE-acetaminophen (PERCOCET) 5-325 mg tablet 1 TAB ORALLY EVERY 6 HOURS NEEDED NEEDED FOR PAIN FOR 3 DAYS (Patient not taking: Reported on 12/14/2024) No current facility-administered medications for this visit. ALLERGIES Allergen Reactions Sulfa (Sulfonamide * PAST MEDICAL HISTORY Diagnosis Date Postmenopausal atrophic vaginitis Stricture, urethra OLIVER (stress urinary incontinence, female) Urge incontinence UTI (urinary tract infection) PAST SURGICAL HISTORY Procedure Laterality Date COLONOSCOPY 12/2014 EXC CYST/ABERRANT BREAST TISSUE OPEN LESION 1995 R breast benign- lipomas by description GALLBLADDER/EF KNEE SURGERY HX bursis sac removed TONSILLECTOMY HX TUBAL LIGATION HX 1980 bilateral VAGINAL DELIVERY HX FAMILY HISTORY Problem Relation Age of Onset Colon Cancer Mother Diabetes Mother Colon Cancer Father other (Lung Cancer) Father other (Throat Cancer) Father Breast Cancer Maternal Aunt #1) 60 @ dx. living Alzheimer's Disease Maternal Aunt 60's @ dx. Living Breast Cancer Maternal Aunt #2) details unknown SOCIAL HISTORY[1] ACTIVE PROBLEM LIST Fibrocystic Breast Other Urethral Stricture, Female Urge Incontinence REVIEW OF SYSTEMS: REVIEW OF SYSTEMS GENERAL: No weight loss, malaise or fevers PHYSICAL EXAM: General Appearance: Well appearing, alert, in no acute distress, well-hydrated, well nourished.. FINDINGS AND PROCEDURE: The patient was placed in the lithotomy position. The genitalia area was prepped and draped and 2% Anestacon was was injected into the urethra. A 15 [place] female sound was gently introduced into the bladder. The urethra was sequentially gently dilated through 26 Pakistani. This was well tolerated by the patient and she was sent home with a single dose of an antibiotic. She is to call if she experiences any problems. PRESCRIPTION THIS VISIT: Orders Placed This Encounter vitamin D3/vitamin K2, MK4, (K2 PLUS D3 PO) Sig: Take by mouth. (The purpose of any medications prescribed on this visit, mode of administration, and side effects were discussed with the patient.) ASSESSMENT/PLAN: 1. Recurrent UTI - ICD9: 599.0, ICD10: N39.0 (primary diagnosis) 2. Other urethral stricture, female - ICD9: 598.8, ICD10: N35.82 -f/u in 10 weeks. Nikki Geller APRN.CNP [1] Social History Tobacco Use Smoking status: Never Smokeless tobacco: Never Substance Use Topics Alcohol use: Yes Comment: Social Drug use: No [facility] encounter Note * Telephone Encounter - Camilla Williamson RN - 12/13/2024 7:39 AM EDT Prescription Refill Information The patient has been identified by name and date of : Yes Caregiver verified no other encounters exist for this prescription request: Yes The last office visit in the department: 10/05/24 Does the patient have a future office visit with this provider/department: Yes 12/14/24 Requested Prescriptions Pending Prescriptions Disp Refills darifenacin ER (ENABLEX) 15 mg 24 hr tablet [Pharmacy Med Name: DARIFENACIN ER 15 MG TABLET] 90 tablet 3 Sig: TAKE 1 TABLET BY MOUTH EVERY DAY Camilla Williamson RN December 13, 2024 7:39 AM [facility]08-11-2025 Miscellaneous Notes* Telephone Encounter - Camilla Williamson RN - 12/13/2024 7:39 AM EDT Prescription Refill Information The patient has been identified by name and date of : Yes Caregiver verified no other encounters exist for this prescription request: Yes The last office visit in the department: 10/05/24 Does the patient have a future office visit with this provider/department: Yes 12/14/24 Requested Prescriptions Pending Prescriptions Disp Refills darifenacin ER (ENABLEX) 15 mg 24 hr tablet [Pharmacy Med Name: DARIFENACIN ER 15 MG TABLET] 90 tablet 3 Sig: TAKE 1 TABLET BY MOUTH EVERY DAY Camilla Williamson RN December 13, 2024 7:39 AM documented in [facility] encounterPark[facility]25 NoteHNO ID: [id number] Author: NIKKI GELLER APRN.[employer] WORKER Service: ? Author Type: Nurse Practitioner Type: Progress Notes Filed: 10/05/2024 11:10 Note Text: 10/05/2024 PCP: DO Estella Menon is a 74 year old female who presents for an established patient visit. Patient with a history of urethral dilations. Occasional frequency and decreased stream but stable. FREQUENCY: she has frequency of urination. Abdominal Pain: None Fever: none Chills: No Dysuria: frequency Hematuria: None Nocturia: No Urgency: Usually No results found for: HB, HCT, WBC, PSA Current Outpatient Medications Medication Sig citalopram (CELEXA) 40 mg tablet estradiol (ESTRACE) 0.01 % (0.1 mg/gram) vaginal cream USE 1 GRAM VAGINALLY 3 TIMES WEEKLY darifenacin ER (ENABLEX) 15 mg 24 hr tablet take 1 tablet by mouth every day amoxicillin-clavulanate potassium (AUGMENTIN) 875-125 mg per tablet Take 1 tablet by mouth every 12 hours. TURMERIC ORAL Take by mouth. MELATONIN ORAL Take by mouth. CHOLECALCIFEROL, VITAMIN D3, (VITAMIN D3 ORAL) Take by mouth. L.ACID/L.CASEI/B.BIF/B.KWABENA/FOS (PROBIOTIC BLEND ORAL) Take by mouth. citalopram (CELEXA) 20 mg tablet Take 20 mg by mouth once daily. Aspirin 81 mg Tab Take 81 mg by mouth once daily. MULTIVITAMIN/IRON/FOLIC ACID (CENTRUM ULTRA WOMEN'S ORAL) Take by mouth once daily. oxyCODONE-acetaminophen (PERCOCET) 5-325 mg tablet 1 TAB ORALLY EVERY 6 HOURS NEEDED NEEDED FOR PAIN FOR 3 DAYS (Patient not taking: Reported on 08/02/2024) No current facility-administered medications for this visit. ALLERGIES Allergen Reactions Sulfa (Sulfonamide * PAST MEDICAL HISTORY Diagnosis Date Postmenopausal atrophic vaginitis Stricture, urethra OLIVER (stress urinary incontinence, female) Urge incontinence UTI (urinary tract infection) PAST SURGICAL HISTORY Procedure Laterality Date COLONOSCOPY 12/2014 EXC CYST/ABERRANT BREAST TISSUE OPEN LESION 1995 R breast benign- lipomas by description GALLBLADDER/EF KNEE SURGERY HX bursis sac removed TONSILLECTOMY HX TUBAL LIGATION HX 1980 bilateral VAGINAL DELIVERY HX FAMILY HISTORY Problem Relation Age of Onset Colon Cancer Mother Diabetes Mother Colon Cancer Father other (Lung Cancer) Father other (Throat Cancer) Father Breast Cancer Maternal Aunt #1) 60 @ dx. living Alzheimer's Disease Maternal Aunt 60's @ dx. Living Breast Cancer Maternal Aunt #2) details unknown Social History Tobacco Use Smoking status: Never Smokeless tobacco: Never Substance Use Topics Alcohol use: Yes Comment: Social Drug use: No ACTIVE PROBLEM LIST Fibrocystic Breast Other Urethral Stricture, Female Urge Incontinence REVIEW OF SYSTEMS: REVIEW OF SYSTEMS GENERAL: No weight loss, malaise or fevers PHYSICAL EXAM: General Appearance: Well appearing, alert, in no acute distress, well-hydrated, well nourished.. FINDINGS AND PROCEDURE: The patient was placed in the lithotomy position. The genitalia area was prepped and draped and 2% Anestacon was was injected into the urethra. A 14 [place] female sound was gently introduced into the bladder. The urethra was sequentially gently dilated through 28 Pakistani. This was well tolerated by the patient and she was sent home with a single dose of an antibiotic. She is to call if she experiences any problems. PRESCRIPTION THIS VISIT: No orders of the defined types were placed in this encounter. (The purpose of any medications prescribed on this visit, mode of administration, and side effects were discussed with the patient.) Nikki Geller APRN.STRU[employer]AD[employer] WORKER ASSESSMENT/PLAN: 1. Other urethral stricture, female - ICD9: 598.8, ICD10: N35.82 (primary diagnosis) 2. Urge incontinence - ICD9: 788.31, ICD10: N39.41 Nikki Geller APRN.[facility]06-03-2025 History of Present illness Narrative* Nikki Geller APRN.STRU[employer]URAL [employer] TRADES WORKER - 10/05/2024 10:53 AM EDT 10/05/2024 PCP: DO Estella Menon is a 74 year old female who presents for an established patient visit. Patient with a history of urethral dilations. Occasional frequency and decreased stream but stable. FREQUENCY: she has frequency of urination. Abdominal Pain: None Fever: none Chills: No Dysuria: frequency Hematuria: None Nocturia: No Urgency: Usually No results found for: HB, HCT, WBC, PSA Current Outpatient Medications Medication Sig citalopram (CELEXA) 40 mg tablet estradiol (ESTRACE) 0.01 % (0.1 mg/gram) vaginal cream USE 1 GRAM VAGINALLY 3 TIMES WEEKLY darifenacin ER (ENABLEX) 15 mg 24 hr tablet take 1 tablet by mouth every day amoxicillin-clavulanate potassium (AUGMENTIN) 875-125 mg per tablet Take 1 tablet by mouth every 12hours. TURMERIC ORAL Take by mouth. MELATONIN ORAL Take by mouth. CHOLECALCIFEROL, VITAMIN D3, (VITAMIN D3 ORAL) Take by mouth. L.ACID/L.CASEI/B.BIF/B.KWABENA/FOS (PROBIOTIC BLEND ORAL) Take by mouth. citalopram (CELEXA) 20 mg tablet Take 20 mg by mouth once daily. Aspirin 81 mg Tab Take 81 mg by mouth once daily. MULTIVITAMIN/IRON/FOLIC ACID (CENTRUM ULTRA WOMEN'S ORAL) Take by mouth once daily. oxyCODONE-acetaminophen (PERCOCET) 5-325 mg tablet 1 TAB ORALLY EVERY 6 HOURS NEEDED NEEDED FOR PAIN FOR 3 DAYS (Patient not taking: Reported on 08/02/2024) No current facility-administered medications for this visit. ALLERGIES Allergen Reactions Sulfa (Sulfonamide * PAST MEDICAL HISTORY Diagnosis Date Postmenopausal atrophic vaginitis Stricture, urethra OLIVER (stress urinary incontinence, female) Urge incontinence UTI (urinary tract infection) PAST SURGICAL HISTORY Procedure Laterality Date COLONOSCOPY 12/2014 EXC CYST/ABERRANT BREAST TISSUE OPEN 1/> LESION 1996 R breast benign- lipomas by description GALLBLADDER/EF KNEE SURGERY HX bursis sac removed TONSILLECTOMY HX TUBAL LIGATION HX 1981 bilateral VAGINAL DELIVERY HX FAMILY HISTORY Problem Relation Age of Onset Colon Cancer Mother Diabetes Mother Colon Cancer Father other (Lung Cancer) Father other (Throat Cancer) Father Breast Cancer Maternal Aunt #1) 60 @ dx. living Alzheimer's Disease Maternal Aunt 60's @ dx. Living Breast Cancer Maternal Aunt #2) details unknown Social History Tobacco Use Smoking status: Never Smokeless tobacco: Never Substance Use Topics Alcohol use: Yes Comment: Social Drug use: No ACTIVE PROBLEM LIST Fibrocystic Breast Other Urethral Stricture, Female Urge Incontinence REVIEW OF SYSTEMS: REVIEW OF SYSTEMS GENERAL: No weight loss, malaise or fevers PHYSICAL EXAM: General Appearance: Well appearing, alert, in no acute distress, well-hydrated, well nourished.. FINDINGS AND PROCEDURE: The patient was placed in the lithotomy position. The genitalia area was prepped and draped and 2% Anestacon was was injected into the urethra. A 14 Pakistani [place] female sound was gently introduced into the bladder. The urethra was sequentially gently dilated through 28 Pakistani. This was well tolerated by the patient and she was sent home with a single dose of an antibiotic. She is to call if she experiences any problems. PRESCRIPTION THIS VISIT: No orders of the defined types were placed in this encounter. (The purpose of any medications prescribed on this visit, mode of administration, and side effects were discussed with the patient.) Nikki Geller APRN.[employer] WORKER ASSESSMENT/PLAN: 1. Other urethral stricture, female - ICD9: 598.8, ICD10: N35.82 (primary diagnosis) 2. Urge incontinence - ICD9: 788.31, ICD10: N39.41 Nikki Geller APRN.[employer] TRAD[employer] WORKER documented in this encounterPark[facility]25 NoteHNO ID: [id number] Author: NIKKI GELLER APRN.[employer] WORKER Service: ? Author Type: Nurse Practitioner Type: Progress Notes Filed: 08/02/2024 10:23 Note Text: 08/02/2024 PCP: DO Estella Menon McMillen is a 74 year old female who presents for an established patient visit. Patient with a history of urethral dilations. Occasional frequency and decreased stream but stable. FREQUENCY: she has frequency of urination. Abdominal Pain: None Fever: none Chills: No Dysuria: frequency Hematuria: None Nocturia: No Urgency: Usually No results found for: HB, HCT, WBC, PSA Current Outpatient Medications Medication Sig estradiol (ESTRACE) 0.01 % (0.1 mg/gram) vaginal cream USE 1 GRAM VAGINALLY 3 TIMES WEEKLY darifenacin ER (ENABLEX) 15 mg 24 hr tablet take 1 tablet by mouth every day amoxicillin-clavulanate potassium (AUGMENTIN) 875-125 mg per tablet Take 1 tablet by mouth every 12 hours. (Patient not taking: Reported on 12/29/2023) oxyCODONE-acetaminophen (PERCOCET) 5-325 mg tablet 1 TAB ORALLY EVERY 6 HOURS NEEDED NEEDED FOR PAIN FOR 3 DAYS (Patient not taking: Reported on 12/29/2023) TURMERIC ORAL Take by mouth. MELATONIN ORAL Take by mouth. CHOLECALCIFEROL, VITAMIN D3, (VITAMIN D3 ORAL) Take by mouth. L.ACID/L.CASEI/B.BIF/B.KWABENA/FOS (PROBIOTIC BLEND ORAL) Take by mouth. citalopram (CELEXA) 20 mg tablet Take 20 mg by mouth once daily. Aspirin 81 mg Tab Take 81 mg by mouth once daily. MULTIVITAMIN/IRON/FOLIC ACID (CENTRUM ULTRA WOMEN'S ORAL) Take by mouth once daily. No current facility-administered medications for this visit. ALLERGIES Allergen Reactions Sulfa (Sulfonamide * PAST MEDICAL HISTORY Diagnosis Date Postmenopausal atrophic vaginitis Stricture, urethra OLIVER (stress urinary incontinence, female) Urge incontinence UTI (urinary tract infection) PAST SURGICAL HISTORY Procedure Laterality Date COLONOSCOPY 12/2014 EXC CYST/ABERRANT BREAST TISSUE OPEN 1/> LESION 1995 R breast benign- lipomas by description GALLBLADDER/EF KNEE SURGERY HX bursis sac removed TONSILLECTOMY HX TUBAL LIGATION HX 1980 bilateral VAGINAL DELIVERY HX FAMILY HISTORY Problem Relation Age of Onset Colon Cancer Mother Diabetes Mother Colon Cancer Father other (Lung Cancer) Father other (Throat Cancer) Father Breast Cancer Maternal Aunt #1) 60 @ dx. living Alzheimer's Disease Maternal Aunt 60's @ dx. Living Breast Cancer Maternal Aunt #2) details unknown Social History Tobacco Use Smoking status: Never Smokeless tobacco: Never Substance Use Topics Alcohol use: Yes Comment: Social Drug use: No ACTIVE PROBLEM LIST Fibrocystic Breast Other Urethral Stricture, Female Urge Incontinence REVIEW OF SYSTEMS: REVIEW OF SYSTEMS GENERAL: No weight loss, malaise or fevers PHYSICAL EXAM: General Appearance: Well appearing, alert, in no acute distress, well-hydrated, well nourished.. FINDINGS AND PROCEDURE: The patient was placed in the lithotomy position. The genitalia area was prepped and draped and 2% Anestacon was was injected into the urethra. A 14 [place] female sound was gently introduced into the bladder. The urethra was sequentially gently dilated through 28 Pakistani. This was well tolerated by the patient and she was sent home with a single dose of an antibiotic. She is to call if she experiences any problems. PRESCRIPTION THIS VISIT: No orders of the defined types were placed in this encounter. (The purpose of any medications prescribed on this visit, mode of administration, and side effects were discussed with the patient.) ASSESSMENT/PLAN: 1. Other urethral stricture, female - ICD9: 598.8, ICD10: N35.82 2. Urge incontinence - ICD9: 788.31, ICD10: N39.41 Nikki Geller APRN.[employer] WORKER The patient consented to the use of ambient [employer] software for draft documentation of the visit consistent with [facility]?s Notice of Privacy Practices. [facility]03-31-2025 History of Present illness Narrative* Nikki Geller APRN.ZOHAIB - 08/02/2024 10:07 AM EDT 08/02/2024 PCP: DO Estella Menon is a 74 year old female who presents for an established patient visit. Patient with a history of urethral dilations. Occasional frequency and decreased stream but stable. FREQUENCY: she has frequency of urination. Abdominal Pain: None Fever: none Chills: No Dysuria: frequency Hematuria: None Nocturia: No Urgency: Usually No results found for: HB, HCT, WBC, PSA Current Outpatient Medications Medication Sig estradiol (ESTRACE) 0.01 % (0.1 mg/gram) vaginal cream USE 1 GRAM VAGINALLY 3 TIMES WEEKLY darifenacin ER (ENABLEX) 15 mg 24 hr tablet take 1 tablet by mouth every day amoxicillin-clavulanate potassium (AUGMENTIN) 875-125 mg per tablet Take 1 tablet by mouth every 12hours. (Patient not taking: Reported on 12/29/2023) oxyCODONE-acetaminophen (PERCOCET) 5-325 mg tablet 1 TAB ORALLY EVERY 6 HOURS NEEDED NEEDED FOR PAIN FOR 3 DAYS (Patient not taking: Reported on 12/29/2023) TURMERIC ORAL Take by mouth. MELATONIN ORAL Take by mouth. CHOLECALCIFEROL, VITAMIN D3, (VITAMIN D3 ORAL) Take by mouth. L.ACID/L.CASEI/B.BIF/B.KWABENA/FOS (PROBIOTIC BLEND ORAL) Take by mouth. citalopram (CELEXA) 20 mg tablet Take 20 mg by mouth once daily. Aspirin 81 mg Tab Take 81 mg by mouth once daily. MULTIVITAMIN/IRON/FOLIC ACID (CENTRUM ULTRA WOMEN'S ORAL) Take by mouth once daily. No current facility-administered medications for this visit. ALLERGIES Allergen Reactions Sulfa (Sulfonamide * PAST MEDICAL HISTORY Diagnosis Date Postmenopausal atrophic vaginitis Stricture, urethra OLIVER (stress urinary incontinence, female) Urge incontinence UTI (urinary tract infection) PAST SURGICAL HISTORY Procedure Laterality Date COLONOSCOPY 12/2014 EXC CYST/ABERRANT BREAST TISSUE OPEN LESION 1995 R breast benign- lipomas by description GALLBLADDER/EF KNEE SURGERY HX bursis sac removed TONSILLECTOMY HX TUBAL LIGATION HX 1980 bilateral VAGINAL DELIVERY HX FAMILY HISTORY Problem Relation Age of Onset Colon Cancer Mother Diabetes Mother Colon Cancer Father other (Lung Cancer) Father other (Throat Cancer) Father Breast Cancer Maternal Aunt #1) 60 @ dx. living Alzheimer's Disease Maternal Aunt 60's @ dx. Living Breast Cancer Maternal Aunt #2) details unknown Social History Tobacco Use Smoking status: Never Smokeless tobacco: Never Substance Use Topics Alcohol use: Yes Comment: Social Drug use: No ACTIVE PROBLEM LIST Fibrocystic Breast Other Urethral Stricture, Female Urge Incontinence REVIEW OF SYSTEMS: REVIEW OF SYSTEMS GENERAL: No weight loss, malaise or fevers PHYSICAL EXAM: General Appearance: Well appearing, alert, in no acute distress, well-hydrated, well nourished.. FINDINGS AND PROCEDURE: The patient was placed in the lithotomy position. The genitalia area was prepped and draped and 2% Anestacon was was injected into the urethra. A 15 [place] Kenyon female sound was gently introduced into the bladder. The urethra was sequentially gently dilated through 28 Pakistani. This was well tolerated by the patient and she was sent home with a single dose of an antibiotic. She is to call if she experiences any problems. PRESCRIPTION THIS VISIT: No orders of the defined types were placed in this encounter. (The purpose of any medications prescribed on this visit, mode of administration, and side effects were discussed with the patient.) ASSESSMENT/PLAN: 1. Other urethral stricture, female - ICD9: 598.8, ICD10: N35.82 2. Urge incontinence - ICD9: 788.31, ICD10: N39.41 Nikki Geller APRN.CNP The patient consented to the use of [email or web address] software for draft documentation of the visit consistent with [facility] s Notice of Privacy Practices. documented in this encounterPark[facility]01-14-[facility]25 NoteHNO ID: [id number] Author: NIKKI GELLER APRN.CNP Service: ? Author Type: Nurse Practitioner Type: Progress Notes Filed: 05/18/2024 10:36 Note Text: 05/18/2024 PCP: DO Estella Menon is a 74 year old female who presents for an established patient visit. Patient with a history of urethral dilations. Occasional frequency and decreased stream but stable. FREQUENCY: she has frequency of urination. Abdominal Pain: None Fever: none Chills: No Dysuria: frequency Hematuria: None Nocturia: No Urgency: Usually No results found for: HB, HCT, WBC, PSA Current Outpatient Medications Medication Sig darifenacin ER (ENABLEX) 15 mg 24 hr tablet take 1 tablet by mouth every day TURMERIC ORAL Take by mouth. MELATONIN ORAL Take by mouth. CHOLECALCIFEROL, VITAMIN D3, (VITAMIN D3 ORAL) Take by mouth. L.ACID/L.CASEI/B.BIF/B.KWABENA/FOS (PROBIOTIC BLEND ORAL) Take by mouth. citalopram (CELEXA) 20 mg tablet Take 20 mg by mouth once daily. Aspirin 81 mg Tab Take 81 mg by mouth once daily. MULTIVITAMIN/IRON/FOLIC ACID (CENTRUM ULTRA WOMEN'S ORAL) Take by mouth once daily. estradiol (ESTRACE) 0.01 % (0.1 mg/gram) vaginal cream USE 1 GRAM VAGINALLY 3 TIMES WEEKLY amoxicillin-clavulanate potassium (AUGMENTIN) 875-125 mg per tablet Take 1 tablet by mouth every 12 hours. (Patient not taking: Reported on 12/29/2023) oxyCODONE-acetaminophen (PERCOCET) 5-325 mg tablet 1 TAB ORALLY EVERY 6 HOURS NEEDED NEEDED FOR PAIN FOR 3 DAYS (Patient not taking: Reported on 12/29/2023) No current facility-administered medications for this visit. ALLERGIES Allergen Reactions Sulfa (Sulfonamide * PAST MEDICAL HISTORY Diagnosis Date Postmenopausal atrophic vaginitis Stricture, urethra OLIVER (stress urinary incontinence, female) Urge incontinence UTI (urinary tract infection) PAST SURGICAL HISTORY Procedure Laterality Date COLONOSCOPY 12/2014 EXC CYST/ABERRANT BREAST TISSUE OPEN LESION 1995 R breast benign- lipomas by description GALLBLADDER/EF KNEE SURGERY HX bursis sac removed TONSILLECTOMY HX TUBAL LIGATION HX 1980 bilateral VAGINAL DELIVERY HX FAMILY HISTORY Problem Relation Age of Onset Colon Cancer Mother Diabetes Mother Colon Cancer Father other (Lung Cancer) Father other (Throat Cancer) Father Breast Cancer Maternal Aunt #1) 60 @ dx. living Alzheimer's Disease Maternal Aunt 60's @ dx. Living Breast Cancer Maternal Aunt #2) details unknown Social History Tobacco Use Smoking status: Never Smokeless tobacco: Never Substance Use Topics Alcohol use: Yes Comment: Social Drug use: No ACTIVE PROBLEM LIST Fibrocystic Breast Other Urethral Stricture, Female Urge Incontinence REVIEW OF SYSTEMS: REVIEW OF SYSTEMS GENERAL: No weight loss, malaise or fevers PHYSICAL EXAM: General Appearance: Well appearing, alert, in no acute distress, well-hydrated, well nourished.. FINDINGS AND PROCEDURE: The patient was placed in the lithotomy position. The genitalia area was prepped and draped and 2% Anestacon was was injected into the urethra. A 16 [place] Kenyon female sound was gently introduced into the bladder. The urethra was sequentially gently dilated through 28 Pakistani. This was well tolerated by the patient and she was sent home with a single dose of an antibiotic. She is to call if she experiences any problems. The sensitive examination was discussed with the Patient or Patient's Authorized Peanut Vendor. As applicable, any other physician, advance practice provider, medical student, or other health professional student that will be observing or involved in the sensitive examination for educational or training purposes was discussed with the Patient or Authorized Peanut Vendor. The Patient or Authorized Peanut Vendor has agreed to proceed with the sensitive examination. (Sensitive examination includes inspection and/or palpation of the breasts, pelvis, prostate and anorectal regions) PRESCRIPTION THIS VISIT: Orders Placed This Encounter estradiol (ESTRACE) 0.01 % (0.1 mg/gram) vaginal cream Sig: USE 1 GRAM VAGINALLY 3 TIMES WEEKLY Dispense: 42.5 g Refill: 3 (The purpose of any medications prescribed on this visit, mode of administration, and side effects were discussed with the patient.) ASSESSMENT/PLAN: 1. Other urethral stricture, female - ICD9: 598.8, ICD10: N35.82 -f/u for dilation in 10 weeks. 2. Recurrent UTI - ICD9: 599.0, ICD10: N39.0 - ESTRADIOL 0.01% (0.1 MG/GRAM) VAGINAL CREAM Nikki Geller APRN.[facility]01-14-2025 History of Present illness Narrative* Nikki Geller APRN.[employer] - 05/18/2024 10:33 AM EST 05/18/2024 PCP: DO Estella Menon is a 74 year old female who presents for an established patient visit. Patient with a history of urethral dilations. Occasional frequency and decreased stream but stable. FREQUENCY: she has frequency of urination. Abdominal Pain: None Fever: none Chills: No Dysuria: frequency Hematuria: None Nocturia: No Urgency: Usually No results found for: HB, HCT, WBC, PSA Current Outpatient Medications Medication Sig darifenacin ER (ENABLEX) 15 mg 24 hr tablet take 1 tablet by mouth every day TURMERIC ORAL Take by mouth. MELATONIN ORAL Take by mouth. CHOLECALCIFEROL, VITAMIN D3, (VITAMIN D3 ORAL) Take by mouth. L.ACID/L.CASEI/B.BIF/B.KWABENA/FOS (PROBIOTIC BLEND ORAL) Take by mouth. citalopram (CELEXA) 20 mg tablet Take 20 mg by mouth once daily. Aspirin 81 mg Tab Take 81 mg by mouth once daily. MULTIVITAMIN/IRON/FOLIC ACID (CENTRUM ULTRA WOMEN'S ORAL) Take by mouth once daily. estradiol (ESTRACE) 0.01 % (0.1 mg/gram) vaginal cream USE 1 GRAM VAGINALLY 3 TIMES WEEKLY amoxicillin-clavulanate potassium (AUGMENTIN) 875-125 mg per tablet Take 1 tablet by mouth every 12hours. (Patient not taking: Reported on 12/29/2023) oxyCODONE-acetaminophen (PERCOCET) 5-325 mg tablet 1 TAB ORALLY EVERY 6 HOURS NEEDED NEEDED FOR PAIN FOR 3 DAYS (Patient not taking: Reported on 12/29/2023) No current facility-administered medications for this visit. ALLERGIES Allergen Reactions Sulfa (Sulfonamide * PAST MEDICAL HISTORY Diagnosis Date Postmenopausal atrophic vaginitis Stricture, urethra OLIVER (stress urinary incontinence, female) Urge incontinence UTI (urinary tract infection) PAST SURGICAL HISTORY Procedure Laterality Date COLONOSCOPY 12/2014 EXC CYST/ABERRANT BREAST TISSUE OPEN LESION 1995 R breast benign- lipomas by description GALLBLADDER/EF KNEE SURGERY HX bursis sac removed TONSILLECTOMY HX TUBAL LIGATION HX 1980 bilateral VAGINAL DELIVERY HX FAMILY HISTORY Problem Relation Age of Onset Colon Cancer Mother Diabetes Mother Colon Cancer Father other (Lung Cancer) Father other (Throat Cancer) Father Breast Cancer Maternal Aunt #1) 60 @ dx. living Alzheimer's Disease Maternal Aunt 60's @ dx. Living Breast Cancer Maternal Aunt #2) details unknown Social History Tobacco Use Smoking status: Never Smokeless tobacco: Never Substance Use Topics Alcohol use: Yes Comment: Social Drug use: No ACTIVE PROBLEM LIST Fibrocystic Breast Other Urethral Stricture, Female Urge Incontinence REVIEW OF SYSTEMS: REVIEW OF SYSTEMS GENERAL: No weight loss, malaise or fevers PHYSICAL EXAM: General Appearance: Well appearing, alert, in no acute distress, well-hydrated, well nourished.. FINDINGS AND PROCEDURE: The patient was placed in the lithotomy position. The genitalia area was prepped and draped and 2% Anestacon was was injected into the urethra. A 16 Pakistani Kenyon female sound was gently introduced into the bladder. The urethra was sequentially gently dilated through 28 Pakistani. This was well tolerated by the patient and she was sent home with a single dose of an antibiotic. She is to call if she experiences any problems. The sensitive examination was discussed with the Patient or Patient's Authorized Peanut Vendor. Asapplicable, any other physician, advance practice provider, medical student, or other health professional student that will be observing or involved in the sensitive examination for educational or training purposes was discussed with the Patient or Authorized Peanut Vendor. The Patient or Authorized Peanut Vendor has agreed to proceed with the sensitive examination. (Sensitive examination includes inspection and/or palpation of the breasts, pelvis, prostate and anorectal regions) PRESCRIPTION THIS VISIT: Orders Placed This Encounter estradiol (ESTRACE) 0.01 % (0.1 mg/gram) vaginal cream Sig: USE 1 GRAM VAGINALLY 3 TIMES WEEKLY Dispense: 42.5 g Refill: 3 (The purpose of any medications prescribed on this visit, mode of administration, and side effects were discussed with the patient.) ASSESSMENT/PLAN: 1. Other urethral stricture, female - ICD9: 598.8, ICD10: N35.82 -f/u for dilation in 10 weeks. 2. Recurrent UTI - ICD9: 599.0, ICD10: N39.0 - ESTRADIOL 0.01% (0.1 MG/GRAM) VAGINAL CREAM Nikki Geller APRN.CNP documented in [facility] Telephone encounter Note * Telephone Encounter - Lora Hennessy MA - 03/11/2024 1:16 PM EST LVM with results [facility]11-07-2024 Miscellaneous Notes* Telephone Encounter - Lora Hennessy MA - 03/11/2024 1:16 PM EST LVM with results * Telephone Encounter - Nikki Geller APRN.CNP - 03/11/2024 12:47 PM EST Please call patient, urine culture is negative for infection. documented in this encounterPark[facility]11-[facility]-2024 Telephone encounter Note * Telephone Encounter - Nikki Geller APRN.CNP - 03/11/2024 12:47 PM EST Please call patient, urine culture is negative for infection. [facility]11-04-2024 NoteHNO ID: [id number] Author: NIKKI GELLER APRN.CNP Service: ? Author Type: Nurse Practitioner Type: Progress Notes Filed: 03/08/2024 11:29 Note Text: 03/08/2024 PCP: DO Estella Menon is a 73 year old female who presents for an established patient visit. Patient with a history of urethral dilations. FREQUENCY: she has frequency of urination. Abdominal Pain: None Fever: none Chills: No Dysuria: frequency Hematuria: None Nocturia: No Urgency: Usually No results found for: HB, HCT, WBC, PSA Current Outpatient Medications Medication Sig estradiol (ESTRACE) 0.01 % (0.1 mg/gram) vaginal cream Use 1 g vaginally three times a week. darifenacin ER (ENABLEX) 15 mg 24 hr tablet take 1 tablet by mouth every day amoxicillin-clavulanate potassium (AUGMENTIN) 875-125 mg per tablet Take 1 tablet by mouth every 12 hours. (Patient not taking: Reported on 12/29/2023) oxyCODONE-acetaminophen (PERCOCET) 5-325 mg tablet 1 TAB ORALLY EVERY 6 HOURS NEEDED NEEDED FOR PAIN FOR 3 DAYS (Patient not taking: Reported on 12/29/2023) estradiol (ESTRACE) 0.01 % (0.1 mg/gram) vaginal cream USE 1 GRAM VAGINALLY 3 TIMES WEEKLY TURMERIC ORAL Take by mouth. MELATONIN ORAL Take by mouth. CHOLECALCIFEROL, VITAMIN D3, (VITAMIN D3 ORAL) Take by mouth. L.ACID/L.CASEI/B.BIF/B.KWABENA/FOS (PROBIOTIC BLEND ORAL) Take by mouth. citalopram (CELEXA) 20 mg tablet Take 20 mg by mouth once daily. Aspirin 81 mg Tab Take 81 mg by mouth once daily. MULTIVITAMIN/IRON/FOLIC ACID (CENTRUM ULTRA WOMEN'S ORAL) Take by mouth once daily. No current facility-administered medications for this visit. ALLERGIES Allergen Reactions Sulfa (Sulfonamide * PAST MEDICAL HISTORY Diagnosis Date Postmenopausal atrophic vaginitis Stricture, urethra OLIVER (stress urinary incontinence, female) Urge incontinence UTI (urinary tract infection) PAST SURGICAL HISTORY Procedure Laterality Date COLONOSCOPY 12/2014 EXC CYST/ABERRANT BREAST TISSUE OPEN LESION 1995 R breast benign- lipomas by description GALLBLADDER/EF KNEE SURGERY HX bursis sac removed TONSILLECTOMY HX TUBAL LIGATION HX 1980 bilateral VAGINAL DELIVERY HX FAMILY HISTORY Problem Relation Age of Onset Colon Cancer Mother Diabetes Mother Colon Cancer Father other (Lung Cancer) Father other (Throat Cancer) Father Breast Cancer Maternal Aunt #1) 60 @ dx. living Alzheimer's Disease Maternal Aunt 60's @ dx. Living Breast Cancer Maternal Aunt #2) details unknown Social History Tobacco Use Smoking status: Never Smokeless tobacco: Never Substance Use Topics Alcohol use: Yes Comment: Social Drug use: No ACTIVE PROBLEM LIST Fibrocystic Breast Other Urethral Stricture, Female Urge Incontinence REVIEW OF SYSTEMS: REVIEW OF SYSTEMS GENERAL: No weight loss, malaise or fevers PHYSICAL EXAM: General Appearance: Well appearing, alert, in no acute distress, well-hydrated, well nourished.. FINDINGS AND PROCEDURE: The patient was placed in the lithotomy position. The genitalia area was prepped and draped and 2% Anestacon was was injected into the urethra. A 20 Pakistani Kenyon female sound was gently introduced into the bladder. The urethra was sequentially gently dilated through 28 Pakistani. This was well tolerated by the patient and she was sent home with a single dose of an antibiotic. She is to call if she experiences any problems. PRESCRIPTION THIS VISIT: No orders of the defined types were placed in this encounter. (The purpose of any medications prescribed on this visit, mode of administration, and side effects were discussed with the patient.) ASSESSMENT/PLAN: 1. Other urethral stricture, female - ICD9: 598.8, ICD10: N35.82 -urine culture sent today. -f/u in 10 weeks. 2. Urge incontinence - ICD9: 788.31, ICD10: N39.41 Nikki Geller APRN.[facility]11-04-2024 History of Present illness Narrative* Nikki Geller APRN.[facility] - 03/08/2024 10:55 AM EST 03/08/2024 PCP: DO Estella Menon is a 73 year old female who presents for an established patient visit. Patient with a history of urethral dilations. FREQUENCY: she has frequency of urination. Abdominal Pain: None Fever: none Chills: No Dysuria: frequency Hematuria: None Nocturia: No Urgency: Usually No results found for: HB, HCT, WBC, PSA Current Outpatient Medications Medication Sig estradiol (ESTRACE) 0.01 % (0.1 mg/gram) vaginal cream Use 1 g vaginally three times a week. darifenacin ER (ENABLEX) 15 mg 24 hr tablet take 1 tablet by mouth every day amoxicillin-clavulanate potassium (AUGMENTIN) 875-125 mg per tablet Take 1 tablet by mouth every 12hours. (Patient not taking: Reported on 12/29/2023) oxyCODONE-acetaminophen (PERCOCET) 5-325 mg tablet 1 TAB ORALLY EVERY 6 HOURS NEEDED NEEDED FOR PAIN FOR 3 DAYS (Patient not taking: Reported on 12/29/2023) estradiol (ESTRACE) 0.01 % (0.1 mg/gram) vaginal cream USE 1 GRAM VAGINALLY 3 TIMES WEEKLY TURMERIC ORAL Take by mouth. MELATONIN ORAL Take by mouth. CHOLECALCIFEROL, VITAMIN D3, (VITAMIN D3 ORAL) Take by mouth. L.ACID/L.CASEI/B.BIF/B.KWABENA/FOS (PROBIOTIC BLEND ORAL) Take by mouth. citalopram (CELEXA) 20 mg tablet Take 20 mg by mouth once daily. Aspirin 81 mg Tab Take 81 mg by mouth once daily. MULTIVITAMIN/IRON/FOLIC ACID (CENTRUM ULTRA WOMEN'S ORAL) Take by mouth once daily. No current facility-administered medications for this visit. ALLERGIES Allergen Reactions Sulfa (Sulfonamide * PAST MEDICAL HISTORY Diagnosis Date Postmenopausal atrophic vaginitis Stricture, urethra OLIVER (stress urinary incontinence, female) Urge incontinence UTI (urinary tract infection) PAST SURGICAL HISTORY Procedure Laterality Date COLONOSCOPY 12/2014 EXC CYST/ABERRANT BREAST TISSUE OPEN 1/> LESION 1995 R breast benign- lipomas by description GALLBLADDER/EF KNEE SURGERY HX bursis sac removed TONSILLECTOMY HX TUBAL LIGATION HX 1981 bilateral VAGINAL DELIVERY HX FAMILY HISTORY Problem Relation Age of Onset Colon Cancer Mother Diabetes Mother Colon Cancer Father other (Lung Cancer) Father other (Throat Cancer) Father Breast Cancer Maternal Aunt #1) 60 @ dx. living Alzheimer's Disease Maternal Aunt 60's @ dx. Living Breast Cancer Maternal Aunt #2) details unknown Social History Tobacco Use Smoking status: Never Smokeless tobacco: Never Substance Use Topics Alcohol use: Yes Comment: Social Drug use: No ACTIVE PROBLEM LIST Fibrocystic Breast Other Urethral Stricture, Female Urge Incontinence REVIEW OF SYSTEMS: REVIEW OF SYSTEMS GENERAL: No weight loss, malaise or fevers PHYSICAL EXAM: General Appearance: Well appearing, alert, in no acute distress, well-hydrated, well nourished.. FINDINGS AND PROCEDURE: The patient was placed in the lithotomy position. The genitalia area was prepped and draped and 2% Anestacon was was injected into the urethra. A 20 [place] female sound was gently introduced into the bladder. The urethra was sequentially gently dilated through 28 Pakistani. This was well tolerated by the patient and she was sent home with a single dose of an antibiotic. She is to call if she experiences any problems. PRESCRIPTION THIS VISIT: No orders of the defined types were placed in this encounter. (The purpose of any medications prescribed on this visit, mode of administration, and side effects were discussed with the patient.) ASSESSMENT/PLAN: 1. Other urethral stricture, female - ICD9: 598.8, ICD10: N35.82 -urine culture sent today. -f/u in 10 weeks. 2. Urge incontinence - ICD9: 788.31, ICD10: N39.41 Nikki Geller APRN.ZOHAIB documented in this encounterPark[facility] History of Present illness Narrative* Nikki Geller APRN.CNP - 12/29/2023 10:18 AM EDT 12/29/2023 PCP: DO Estella Menonn is a 73 year old female who presents for an established patient visit. Patient with a history of urethral dilations. FREQUENCY: she has frequency of urination. Abdominal Pain: None Fever: none Chills: No Dysuria: frequency Hematuria: None Nocturia: No Urgency: Usually No results found for: HB, HCT, WBC, PSA Current Outpatient Medications Medication Sig darifenacin ER (ENABLEX) 15 mg 24 hr tablet take 1 tablet by mouth every day estradiol (ESTRACE) 0.01 % (0.1 mg/gram) vaginal cream USE 1 GRAM VAGINALLY 3 TIMES WEEKLY TURMERIC ORAL Take by mouth. estradiol (ESTRACE) 0.01 % (0.1 mg/gram) vaginal cream Use 1 g vaginally three times a week. MELATONIN ORAL Take by mouth. CHOLECALCIFEROL, VITAMIN D3, (VITAMIN D3 ORAL) Take by mouth. L.ACID/L.CASEI/B.BIF/B.KWABENA/FOS (PROBIOTIC BLEND ORAL) Take by mouth. citalopram (CELEXA) 20 mg tablet Take 20 mg by mouth once daily. Aspirin 81 mg Tab Take 81 mg by mouth once daily. MULTIVITAMIN/IRON/FOLIC ACID (CENTRUM ULTRA WOMEN'S ORAL) Take by mouth once daily. amoxicillin-clavulanate potassium (AUGMENTIN) 875-125 mg per tablet Take 1 tablet by mouth every 12hours. (Patient not taking: Reported on 12/29/2023) oxyCODONE-acetaminophen (PERCOCET) 5-325 mg tablet 1 TAB ORALLY EVERY 6 HOURS NEEDED NEEDED FOR PAIN FOR 3 DAYS (Patient not taking: Reported on 12/29/2023) No current facility-administered medications for this visit. ALLERGIES Allergen Reactions Sulfa (Sulfonamide * PAST MEDICAL HISTORY No date: Postmenopausal atrophic vaginitis No date: Stricture, urethra No date: OLIVER (stress urinary incontinence, female) No date: Urge incontinence No date: UTI (urinary tract infection) PAST SURGICAL HISTORY 12/2014: COLONOSCOPY 1995: EXC CYST/ABERRANT BREAST TISSUE OPEN 1/> LESION Comment: R breast benign- lipomas by description No date: GALLBLADDER/EF No date: KNEE SURGERY HX Comment: bursis sac removed No date: TONSILLECTOMY HX 1980: TUBAL LIGATION HX Comment: bilateral No date: VAGINAL DELIVERY HX FAMILY HISTORY Problem Relation Age of Onset Colon Cancer Mother Diabetes Mother Colon Cancer Father other (Lung Cancer) Father other (Throat Cancer) Father Breast Cancer Maternal Aunt #1) 60 @ dx. living Alzheimer's Disease Maternal Aunt 60's @ dx. Living Breast Cancer Maternal Aunt #2) details unknown Social History Tobacco Use Smoking status: Never Smokeless tobacco: Never Substance Use Topics Alcohol use: Yes Comment: Social Drug use: No ACTIVE PROBLEM LIST Fibrocystic Breast Other Urethral Stricture, Female Urge Incontinence REVIEW OF SYSTEMS: REVIEW OF SYSTEMS GENERAL: No weight loss, malaise or fevers PHYSICAL EXAM: General Appearance: Well appearing, alert, in no acute distress, well-hydrated, well nourished.. FINDINGS AND PROCEDURE: The patient was placed in the lithotomy position. The genitalia area was prepped and draped and 2% Anestacon was was injected into the urethra. A 18 [place] female sound was gently introduced into the bladder. The urethra was sequentially gently dilated through 24 Pakistani. This was well tolerated by the patient and she was sent home with a single dose of an antibiotic. She is to call if she experiences any problems. PRESCRIPTION THIS VISIT: No orders of the defined types were placed in this encounter. (The purpose of any medications prescribed on this visit, mode of administration, and side effects were discussed with the patient.) ASSESSMENT/PLAN: 1. Other urethral stricture, female - ICD9: 598.8, ICD10: N35.82 (primary diagnosis) 2. Urge incontinence - ICD9: 788.31, ICD10: N39.41 Nikki Geller APRN.ZOHAIB documented in this encounterPark[facility] Telephone encounter Note * Telephone Encounter - Bienvenido Allison MA - 12/03/2023 7:47 AM EDT Pharmacy called requesting the following refill. Requested Prescriptions Pending Prescriptions Disp Refills darifenacin ER (ENABLEX) 15 mg 24 hr tablet [Pharmacy Med Name: DARIFENACIN ER 15 MG TABLET] 90 tablet 3 Sig: take 1 tablet by mouth every day Patient last appointment: Visit date not found Patient Phone numbers: [phone] (home) Request is for script(s) to be escript to pharmacy. Bienvenido Allison MA [facility]07-31-2024 Miscellaneous Notes* Telephone Encounter - Bienvenido Allison MA - 12/03/2023 7:47 AM EDT Pharmacy called requesting the following refill. Requested Prescriptions Pending Prescriptions Disp Refills darifenacin ER (ENABLEX) 15 mg 24 hr tablet [Pharmacy Med Name: DARIFENACIN ER 15 MG TABLET] 90 tablet 3 Sig: take 1 tablet by mouth every day Patient last appointment: Visit date not found Patient Phone numbers: [phone] (home) Request is for script(s) to be escript to pharmacy. Bienvenido Allison MA documented in this encounterParkview Health [facility]05-30-2024 NoteHNO ID: [id number] Author: NIKKI GELLER APRN.[employer] Service: ? Author Type: Nurse Practitioner Type: Progress Notes Filed: 10/02/2023 10:19 Note Text: 10/02/2023 PCP: DO Estella Menon is a 73 year old female who presents for an established patient visit. Patient with a history of urethral dilations. FREQUENCY: she has frequency of urination. Abdominal Pain: None Fever: none Chills: No Dysuria: frequency Hematuria: None Nocturia: No Urgency: Usually No results found for: HB, HCT, WBC, PSA Current Outpatient Medications Medication Sig amoxicillin-clavulanate potassium (AUGMENTIN) 875-125 mg per tablet Take 1 tablet by mouth every 12 hours. oxyCODONE-acetaminophen (PERCOCET) 5-325 mg tablet 1 TAB ORALLY EVERY 6 HOURS NEEDED NEEDED FOR PAIN FOR 3 DAYS estradiol (ESTRACE) 0.01 % (0.1 mg/gram) vaginal cream USE 1 GRAM VAGINALLY 3 TIMES WEEKLY darifenacin ER (ENABLEX) 15 mg 24 hr tablet take 1 tablet by mouth every day TURMERIC ORAL Take by mouth. estradiol (ESTRACE) 0.01 % (0.1 mg/gram) vaginal cream Use 1 g vaginally three times a week. oxybutynin ER (DITROPAN XL) 10 mg 24 hr tablet Take by mouth. MELATONIN ORAL Take by mouth. CHOLECALCIFEROL, VITAMIN D3, (VITAMIN D3 ORAL) Take by mouth. L.ACID/L.CASEI/B.BIF/B.KWABENA/FOS (PROBIOTIC BLEND ORAL) Take by mouth. citalopram (CELEXA) 20 mg tablet Take 20 mg by mouth once daily. Aspirin 81 mg Tab Take 81 mg by mouth once daily. MULTIVITAMIN/IRON/FOLIC ACID (CENTRUM ULTRA WOMEN'S ORAL) Take by mouth once daily. No current facility-administered medications for this visit. ALLERGIES Allergen Reactions Sulfa (Sulfonamide * PAST MEDICAL HISTORY Diagnosis Date Postmenopausal atrophic vaginitis Stricture, urethra OLIVER (stress urinary incontinence, female) Urge incontinence UTI (urinary tract infection) PAST SURGICAL HISTORY Procedure Laterality Date COLONOSCOPY 12/2014 EXC CYST/ABERRANT BREAST TISSUE OPEN LESION 1995 R breast benign- lipomas by description GALLBLADDER/EF KNEE SURGERY HX bursis sac removed TONSILLECTOMY HX TUBAL LIGATION HX 1980 bilateral VAGINAL DELIVERY HX FAMILY HISTORY Problem Relation Age of Onset Colon Cancer Mother Diabetes Mother Colon Cancer Father other (Lung Cancer) Father other (Throat Cancer) Father Breast Cancer Maternal Aunt #1) 60 @ dx. living Alzheimer's Disease Maternal Aunt 60's @ dx. Living Breast Cancer Maternal Aunt #2) details unknown Social History Tobacco Use Smoking status: Never Smokeless tobacco: Never Substance Use Topics Alcohol use: Yes Comment: Social Drug use: No ACTIVE PROBLEM LIST Fibrocystic Breast Other Urethral Stricture, Female Urge Incontinence REVIEW OF SYSTEMS: REVIEW OF SYSTEMS GENERAL: No weight loss, malaise or fevers PHYSICAL EXAM: General Appearance: Well appearing, alert, in no acute distress, well-hydrated, well nourished.. FINDINGS AND PROCEDURE: The patient was placed in the lithotomy position. The genitalia area was prepped and draped and 2% Anestacon was was injected into the urethra. A 17 [place] female sound was gently introduced into the bladder. The urethra was sequentially gently dilated through 28 Pakistani. This was well tolerated by the patient and she was sent home with a single dose of an antibiotic. She is to call if she experiences any problems. PRESCRIPTION THIS VISIT: No orders of the defined types were placed in this encounter. (The purpose of any medications prescribed on this visit, mode of administration, and side effects were discussed with the patient.) ASSESSMENT/PLAN: 1. Other urethral stricture, female - ICD9: 598.8, ICD10: N35.82 -dilation in 10 weeks. 2. Urge incontinence - ICD9: 788.31, ICD10: N39.41 Nikki Geller APRN.[facility]05-30-2024 History of Present illness Narrative* Nikki Geller APRN.[facility] - 10/02/2023 10:07 AM EDT 10/02/2023 PCP: DO Estella Menon is a 73 year old female who presents for an established patient visit. Patient with a history of urethral dilations. FREQUENCY: she has frequency of urination. Abdominal Pain: None Fever: none Chills: No Dysuria: frequency Hematuria: None Nocturia: No Urgency: Usually No results found for: HB, HCT, WBC, PSA Current Outpatient Medications Medication Sig amoxicillin-clavulanate potassium (AUGMENTIN) 875-125 mg per tablet Take 1 tablet by mouth every 12hours. oxyCODONE-acetaminophen (PERCOCET) 5-325 mg tablet 1 TAB ORALLY EVERY 6 HOURS NEEDED NEEDED FOR PAIN FOR 3 DAYS estradiol (ESTRACE) 0.01 % (0.1 mg/gram) vaginal cream USE 1 GRAM VAGINALLY 3 TIMES WEEKLY darifenacin ER (ENABLEX) 15 mg 24 hr tablet take 1 tablet by mouth every day TURMERIC ORAL Take by mouth. estradiol (ESTRACE) 0.01 % (0.1 mg/gram) vaginal cream Use 1 g vaginally three times a week. oxybutynin ER (DITROPAN XL) 10 mg 24 hr tablet Take by mouth. MELATONIN ORAL Take by mouth. CHOLECALCIFEROL, VITAMIN D3, (VITAMIN D3 ORAL) Take by mouth. L.ACID/L.CASEI/B.BIF/B.KWABENA/FOS (PROBIOTIC BLEND ORAL) Take by mouth. citalopram (CELEXA) 20 mg tablet Take 20 mg by mouth once daily. Aspirin 81 mg Tab Take 81 mg by mouth once daily. MULTIVITAMIN/IRON/FOLIC ACID (CENTRUM ULTRA WOMEN'S ORAL) Take by mouth once daily. No current facility-administered medications for this visit. ALLERGIES Allergen Reactions Sulfa (Sulfonamide * PAST MEDICAL HISTORY Diagnosis Date Postmenopausal atrophic vaginitis Stricture, urethra OLIVER (stress urinary incontinence, female) Urge incontinence UTI (urinary tract infection) PAST SURGICAL HISTORY Procedure Laterality Date COLONOSCOPY 12/2014 EXC CYST/ABERRANT BREAST TISSUE OPEN LESION 1995 R breast benign- lipomas by description GALLBLADDER/EF KNEE SURGERY HX bursis sac removed TONSILLECTOMY HX TUBAL LIGATION HX 1981 bilateral VAGINAL DELIVERY HX FAMILY HISTORY Problem Relation Age of Onset Colon Cancer Mother Diabetes Mother Colon Cancer Father other (Lung Cancer) Father other (Throat Cancer) Father Breast Cancer Maternal Aunt #1) 60 @ dx. living Alzheimer's Disease Maternal Aunt 60's @ dx. Living Breast Cancer Maternal Aunt #2) details unknown Social History Tobacco Use Smoking status: Never Smokeless tobacco: Never Substance Use Topics Alcohol use: Yes Comment: Social Drug use: No ACTIVE PROBLEM LIST Fibrocystic Breast Other Urethral Stricture, Female Urge Incontinence REVIEW OF SYSTEMS: REVIEW OF SYSTEMS GENERAL: No weight loss, malaise or fevers PHYSICAL EXAM: General Appearance: Well appearing, alert, in no acute distress, well-hydrated, well nourished.. FINDINGS AND PROCEDURE: The patient was placed in the lithotomy position. The genitalia area was prepped and draped and 2% Anestacon was was injected into the urethra. A 17 [place] female sound was gently introduced into the bladder. The urethra was sequentially gently dilated through 28 Pakistani. This was well tolerated by the patient and she was sent home with a single dose of an antibiotic. She is to call if she experiences any problems. PRESCRIPTION THIS VISIT: No orders of the defined types were placed in this encounter. (The purpose of any medications prescribed on this visit, mode of administration, and side effects were discussed with the patient.) ASSESSMENT/PLAN: 1. Other urethral stricture, female - ICD9: 598.8, ICD10: N35.82 -dilation in 10 weeks. 2. Urge incontinence - ICD9: 788.31, ICD10: N39.41 Nikki Geller APRN.[employer] documented in this encounterPark[facility] Miscellaneous Notes* Telephone Encounter - Nikki Geller APRN.CNP - 07/25/2023 8:30 AM EDT Please schedule patient for dilation in [address] [facility]. Thanks documented in this encounterParkview Health [facility]03-22-2024 History of Present illness Narrative* Nikki Geller APRN.CNP - 07/25/2023 8:13 AM EDT 07/25/2023 PCP: DO Estella Menon is a 73 year old female who presents for an established patient visit. Patient with a history of urethral dilations. Occasional frequency and decreased stream but stable. FREQUENCY: she has frequency of urination. Abdominal Pain: None Fever: none Chills: No Dysuria: frequency Hematuria: None Nocturia: No Urgency: Rarely No results found for: HB, HCT, WBC, PSA Current Outpatient Medications Medication Sig amoxicillin-clavulanate potassium (AUGMENTIN) 875-125 mg per tablet Take 1 tablet by mouth every 12hours. oxyCODONE-acetaminophen (PERCOCET) 5-325 mg tablet 1 TAB ORALLY EVERY 6 HOURS NEEDED NEEDED FOR PAIN FOR 3 DAYS darifenacin ER (ENABLEX) 15 mg 24 hr tablet take 1 tablet by mouth every day TURMERIC ORAL Take by mouth. estradiol (ESTRACE) 0.01 % (0.1 mg/gram) vaginal cream Use 1 g vaginally three times a week. oxybutynin ER (DITROPAN XL) 10 mg 24 hr tablet Take by mouth. MELATONIN ORAL Take by mouth. CHOLECALCIFEROL, VITAMIN D3, (VITAMIN D3 ORAL) Take by mouth. L.ACID/L.CASEI/B.BIF/B.KWABENA/FOS (PROBIOTIC BLEND ORAL) Take by mouth. citalopram (CELEXA) 20 mg tablet Take 20 mg by mouth once daily. Aspirin 81 mg Tab Take 81 mg by mouth once daily. MULTIVITAMIN/IRON/FOLIC ACID (CENTRUM ULTRA WOMEN'S ORAL) Take by mouth once daily. estradiol (ESTRACE) 0.01 % (0.1 mg/gram) vaginal cream USE 1 GRAM VAGINALLY 3 TIMES WEEKLY (Patientnot taking: Reported on 07/25/2023) No current facility-administered medications for this visit. ALLERGIES Allergen Reactions Sulfa (Sulfonamide * PAST MEDICAL HISTORY Diagnosis Date Postmenopausal atrophic vaginitis Stricture, urethra OLIVER (stress urinary incontinence, female) Urge incontinence UTI (urinary tract infection) PAST SURGICAL HISTORY Procedure Laterality Date COLONOSCOPY 12/2014 EXC CYST/ABERRANT BREAST TISSUE OPEN LESION 1995 R breast benign- lipomas by description GALLBLADDER/EF KNEE SURGERY HX bursis sac removed TONSILLECTOMY HX TUBAL LIGATION HX 1980 bilateral VAGINAL DELIVERY HX FAMILY HISTORY Problem Relation Age of Onset Colon Cancer Mother Diabetes Mother Colon Cancer Father other (Lung Cancer) Father other (Throat Cancer) Father Breast Cancer Maternal Aunt #1) 60 @ dx. living Alzheimer's Disease Maternal Aunt 60's @ dx. Living Breast Cancer Maternal Aunt #2) details unknown Social History Tobacco Use Smoking status: Never Smokeless tobacco: Never Substance Use Topics Alcohol use: Yes Comment: Social Drug use: No ACTIVE PROBLEM LIST Fibrocystic Breast Other Urethral Stricture, Female Urge Incontinence REVIEW OF SYSTEMS: REVIEW OF SYSTEMS GENERAL: No weight loss, malaise or fevers PHYSICAL EXAM: General Appearance: Well appearing, alert, in no acute distress, well-hydrated, well nourished.. FINDINGS AND PROCEDURE: The patient was placed in the lithotomy position. The genitalia area was prepped and draped and 2% Anestacon was was injected into the urethra. A 17 [place] female sound was gently introduced into the bladder. The urethra was sequentially gently dilated through 28 Pakistani. This was well tolerated by the patient and she was sent home with a single dose of an antibiotic. She is to call if she experiences any problems. PRESCRIPTION THIS VISIT: Orders Placed This Encounter amoxicillin-clavulanate potassium (AUGMENTIN) 875-125 mg per tablet Sig: Take 1 tablet by mouth every 12 hours. oxyCODONE-acetaminophen (PERCOCET) 5-325 mg tablet Si TAB ORALLY EVERY 6 HOURS NEEDED NEEDED FOR PAIN FOR 3 DAYS (The purpose of any medications prescribed on this visit, mode of administration, and side effects were discussed with the patient.) ASSESSMENT/PLAN: 1. Other urethral stricture, female - ICD9: 598.8, ICD10: N35.82 (primary diagnosis) 2. Urge incontinence - ICD9: 788.31, ICD10: N39.41 Nikki Geller APRN.[facility] documented in this encounterParkview [facility]11-28-2023 NoteHNO ID: [id number] Author: Nikki Geller APRN.[employer] Service: ? Author Type: Nurse Practitioner Type: Progress Notes Filed: 04/01/2023 10:32 AM Note Text: 04/01/2023 PCP: DO Estella Menon is a 72 year old female who presents for an established patient visit. Patient with a history of urethral dilations. Occasional frequency and decreased stream but stable. FREQUENCY: she has frequency of urination. Abdominal Pain: None Fever: none Chills: No Dysuria: frequency Hematuria: None Nocturia: No Urgency: Usually No results found for: HB, HCT, WBC, PSA Current Outpatient Medications Medication Sig darifenacin ER (ENABLEX) 15 mg 24 hr tablet take 1 tablet by mouth every day estradiol (ESTRACE) 0.01 % (0.1 mg/gram) vaginal cream USE 1 GRAM VAGINALLY 3 TIMES WEEKLY TURMERIC ORAL Take by mouth. estradiol (ESTRACE) 0.01 % (0.1 mg/gram) vaginal cream Use 1 g vaginally three times a week. oxybutynin ER (DITROPAN XL) 10 mg 24 hr tablet Take by mouth. MELATONIN ORAL Take by mouth. CHOLECALCIFEROL, VITAMIN D3, (VITAMIN D3 ORAL) Take by mouth. L.ACID/L.CASEI/B.BIF/B.KWABENA/FOS (PROBIOTIC BLEND ORAL) Take by mouth. citalopram (CELEXA) 20 mg tablet Take 20 mg by mouth once daily. Aspirin 81 mg Tab Take 81 mg by mouth once daily. MULTIVITAMIN/IRON/FOLIC ACID (CENTRUM ULTRA WOMEN'S ORAL) Take by mouth once daily. No current facility-administered medications for this visit. ALLERGIES Allergen Reactions Sulfa (Sulfonamide * PAST MEDICAL HISTORY Diagnosis Date Postmenopausal atrophic vaginitis Stricture, urethra OLIVER (stress urinary incontinence, female) Urge incontinence UTI (urinary tract infection) PAST SURGICAL HISTORY Procedure Laterality Date COLONOSCOPY 12/2014 EXC CYST/ABERRANT BREAST TISSUE OPEN LESION 1995 R breast benign- lipomas by description GALLBLADDER/EF KNEE SURGERY HX bursis sac removed TONSILLECTOMY HX TUBAL LIGATION HX 1981 bilateral VAGINAL DELIVERY HX FAMILY HISTORY Problem Relation Age of Onset Colon Cancer Mother Diabetes Mother Colon Cancer Father other (Lung Cancer) Father other (Throat Cancer) Father Breast Cancer Maternal Aunt #1) 60 @ dx. living Alzheimer's Disease Maternal Aunt 60's @ dx. Living Breast Cancer Maternal Aunt #2) details unknown Social History Tobacco Use Smoking status: Never Smokeless tobacco: Never Substance Use Topics Alcohol use: Yes Comment: Social Drug use: No ACTIVE PROBLEM LIST Fibrocystic Breast Other Urethral Stricture, Female Urge Incontinence REVIEW OF SYSTEMS: REVIEW OF SYSTEMS GENERAL: No weight loss, malaise or fevers PHYSICAL EXAM: General Appearance: Well appearing, alert, in no acute distress, well-hydrated, well nourished.. FINDINGS AND PROCEDURE: The patient was placed in the lithotomy position. The genitalia area was prepped and draped and 2% Anestacon was was injected into the urethra. A 14 [place] female sound was gently introduced into the bladder. The urethra was sequentially gently dilated through 28 Pakistani. This was well tolerated by the patient and she was sent home with a single dose of an antibiotic. She is to call if she experiences any problems. PRESCRIPTION THIS VISIT: No orders of the defined types were placed in this encounter. (The purpose of any medications prescribed on this visit, mode of administration, and side effects were discussed with the patient.) ASSESSMENT/PLAN: 1. Other urethral stricture, female - ICD9: 598.8, ICD10: N35.82 2. Urge incontinence - ICD9: 788.31, ICD10: N39.41 Nikki Geller APRN.[facility]10-02-2023 Miscellaneous Notes* Telephone Encounter - Chip Aragon MA - 02/03/2023 8:20 AM EDT Pharmacy faxed requesting the following refill. Requested Prescriptions Pending Prescriptions Disp Refills darifenacin ER (ENABLEX) 15 mg 24 hr tablet [Pharmacy Med Name: DARIFENACIN ER 15 MG TABLET] 90 tablet 3 Sig: take 1 tablet by mouth every day Patient last appointment: Visit date not found Patient Phone numbers: [phone] (home) [phone] (work) Request is for script(s) to be escript to pharmacy. Chip Aragon MA documented in this encounterParkview [facility]09-19-2023 History of Present illness Narrative* Nikki Geller APRN.[employer] - 01/21/2023 2:04 PM EDT 01/21/2023 PCP: DO Estella Menon is a 72 year old female who presents for an established patient visit. Patient with a history of urethral dilations. . Occasional frequency and decreased stream but stable. FREQUENCY: she has frequency of urination. Abdominal Pain: None Fever: none Chills: No Dysuria: frequency Hematuria: None Nocturia: No Urgency: Usually No results found for: HB, HCT, WBC, PSA Current Outpatient Medications Medication Sig estradiol (ESTRACE) 0.01 % (0.1 mg/gram) vaginal cream USE 1 GRAM VAGINALLY 3 TIMES WEEKLY TURMERIC ORAL Take by mouth. estradiol (ESTRACE) 0.01 % (0.1 mg/gram) vaginal cream Use 1 g vaginally three times a week. oxybutynin ER (DITROPAN XL) 10 mg 24 hr tablet Take by mouth. darifenacin ER (ENABLEX) 15 mg 24 hr tablet Take 1 tablet by mouth once daily. MELATONIN ORAL Take by mouth. CHOLECALCIFEROL, VITAMIN D3, (VITAMIN D3 ORAL) Take by mouth. L.ACID/L.CASEI/B.BIF/B.KWABENA/FOS (PROBIOTIC BLEND ORAL) Take by mouth. citalopram (CELEXA) 20 mg tablet Take 20 mg by mouth once daily. Aspirin 81 mg Tab Take 81 mg by mouth once daily. MULTIVITAMIN/IRON/FOLIC ACID (CENTRUM ULTRA WOMEN'S ORAL) Take by mouth once daily. No current facility-administered medications for this visit. ALLERGIES Allergen Reactions Sulfa (Sulfonamide * PAST MEDICAL HISTORY Diagnosis Date Postmenopausal atrophic vaginitis Stricture, urethra OLIVER (stress urinary incontinence, female) Urge incontinence UTI (urinary tract infection) PAST SURGICAL HISTORY Procedure Laterality Date COLONOSCOPY 12/2014 EXC CYST/ABERRANT BREAST TISSUE OPEN LESION 1995 R breast benign- lipomas by description GALLBLADDER/EF KNEE SURGERY HX bursis sac removed TONSILLECTOMY HX TUBAL LIGATION HX 1981 bilateral VAGINAL DELIVERY HX FAMILY HISTORY Problem Relation Age of Onset Colon Cancer Mother Diabetes Mother Colon Cancer Father other (Lung Cancer) Father other (Throat Cancer) Father Breast Cancer Maternal Aunt #1) 60 @ dx. living Alzheimer's Disease Maternal Aunt 60's @ dx. Living Breast Cancer Maternal Aunt #2) details unknown Social History Tobacco Use Smoking status: Never Smokeless tobacco: Never Substance Use Topics Alcohol use: Yes Comment: Social Drug use: No ACTIVE PROBLEM LIST Fibrocystic Breast Other Urethral Stricture, Female Urge Incontinence REVIEW OF SYSTEMS: REVIEW OF SYSTEMS GENERAL: No weight loss, malaise or fevers PHYSICAL EXAM: General Appearance: Well appearing, alert, in no acute distress, well-hydrated, well nourished.. FINDINGS AND PROCEDURE: The patient was placed in the lithotomy position. The genitalia area was prepped and draped and 2% Anestacon was was injected into the urethra. A 14 [place] female sound was gently introduced into the bladder. The urethra was sequentially gently dilated through 28 Pakistani. This was well tolerated by the patient and she was sent home with a single dose of an antibiotic. She is to call if she experiences any problems. PRESCRIPTION THIS VISIT: No orders of the defined types were placed in this encounter. (The purpose of any medications prescribed on this visit, mode of administration, and side effects were discussed with the patient.) ASSESSMENT/PLAN: 1. Other urethral stricture, female - ICD9: 598.8, ICD10: N35.82 2. Urge incontinence - ICD9: 788.31, ICD10: N39.41 Nikki Geller APRN.ZOHAIB documented in this encounterParkview [facility]07-11-2023 History of Present illness Narrative* Nikki Geller APRN.CNP - 11/12/2022 2:35 PM EDT 11/12/2022 PCP: Jennifer Sewell DO Nancy E Regina is a 72 year old female who presents for an established patient visit. Patient with a history of urethral dilations. Occasional frequency and decreased stream but stable. FREQUENCY: she has frequency of urination. Abdominal Pain: None Fever: none Chills: No Dysuria: frequency Hematuria: None Nocturia: Yes, 1x a night Urgency: occasional No results found for: HB, HCT, WBC, PSA Current Outpatient Medications Medication Sig estradiol (ESTRACE) 0.01 % (0.1 mg/gram) vaginal cream USE 1 G VAGINALLY 3 TIMES WEEKLY TURMERIC ORAL Take by mouth. estradiol (ESTRACE) 0.01 % (0.1 mg/gram) vaginal cream Use 1 g vaginally three times a week. oxybutynin ER (DITROPAN XL) 10 mg 24 hr tablet Take by mouth. darifenacin ER (ENABLEX) 15 mg 24 hr tablet Take 1 tablet by mouth once daily. MELATONIN ORAL Take by mouth. CHOLECALCIFEROL, VITAMIN D3, (VITAMIN D3 ORAL) Take by mouth. L.ACID/L.CASEI/B.BIF/B.KWABENA/FOS (PROBIOTIC BLEND ORAL) Take by mouth. citalopram (CELEXA) 20 mg tablet Take 20 mg by mouth once daily. Aspirin 81 mg Tab Take 81 mg by mouth once daily. MULTIVITAMIN/IRON/FOLIC ACID (CENTRUM ULTRA WOMEN'S ORAL) Take by mouth once daily. No current facility-administered medications for this visit. ALLERGIES Allergen Reactions Sulfa (Sulfonamide * PAST MEDICAL HISTORY Diagnosis Date Postmenopausal atrophic vaginitis Stricture, urethra OLIVER (stress urinary incontinence, female) Urge incontinence UTI (urinary tract infection) PAST SURGICAL HISTORY Procedure Laterality Date COLONOSCOPY 12/2014 EXC CYST/ABERRANT BREAST TISSUE OPEN LESION 1995 R breast benign- lipomas by description GALLBLADDER/EF KNEE SURGERY HX bursis sac removed TONSILLECTOMY HX TUBAL LIGATION HX 1980 bilateral VAGINAL DELIVERY HX FAMILY HISTORY Problem Relation Age of Onset Colon Cancer Mother Diabetes Mother Colon Cancer Father other (Lung Cancer) Father other (Throat Cancer) Father Breast Cancer Maternal Aunt #1) 60 @ dx. living Alzheimer's Disease Maternal Aunt 60's @ dx. Living Breast Cancer Maternal Aunt #2) details unknown Social History Tobacco Use Smoking status: Never Smokeless tobacco: Never Substance Use Topics Alcohol use: Yes Comment: Social Drug use: No ACTIVE PROBLEM LIST Fibrocystic Breast Other Urethral Stricture, Female Urge Incontinence REVIEW OF SYSTEMS: REVIEW OF SYSTEMS GENERAL: No weight loss, malaise or fevers PHYSICAL EXAM: General Appearance: Well appearing, alert, in no acute distress, well-hydrated, well nourished.. FINDINGS AND PROCEDURE: The patient was placed in the lithotomy position. The genitalia area was prepped and draped and 2% Anestacon was was injected into the urethra. A 16 [place] female sound was gently introduced into the bladder. The urethra was sequentially gently dilated through 28 Pakistani. This was well tolerated by the patient and she was sent home with a single dose of an antibiotic. She is to call if she experiences any problems. PRESCRIPTION THIS VISIT: No orders of the defined types were placed in this encounter. (The purpose of any medications prescribed on this visit, mode of administration, and side effects were discussed with the patient.) ASSESSMENT/PLAN: 1. Other urethral stricture, female - ICD9: 598.8, ICD10: N35.82 2. Urge incontinence - ICD9: 788.31, ICD10: N39.41 Nikki Geller APRN.ZOHAIB documented in this encounterParkview [facility]04-25-2023 History of Present illness Narrative* Nikki Geller APRN.CNP - 08/27/2022 2:23 PM EDT 08/27/2022 PCP: DO Estella Menon is a 72 year old female who presents for an established patient visit. Patient with a history of urethral dilations. FREQUENCY: she has frequency of urination. Abdominal Pain: None Fever: none Chills: No Dysuria: frequency Hematuria: None Nocturia: Yes, 2 a night Urgency: Usually No results found for: HB, HCT, WBC, PSA Current Outpatient Medications Medication Sig estradiol (ESTRACE) 0.01 % (0.1 mg/gram) vaginal cream USE 1 G VAGINALLY 3 TIMES WEEKLY TURMERIC ORAL Take by mouth. estradiol (ESTRACE) 0.01 % (0.1 mg/gram) vaginal cream Use 1 g vaginally three times a week. oxybutynin ER (DITROPAN XL) 10 mg 24 hr tablet Take by mouth. darifenacin ER (ENABLEX) 15 mg 24 hr tablet Take 1 tablet by mouth once daily. MELATONIN ORAL Take by mouth. CHOLECALCIFEROL, VITAMIN D3, (VITAMIN D3 ORAL) Take by mouth. L.ACID/L.CASEI/B.BIF/B.KWABENA/FOS (PROBIOTIC BLEND ORAL) Take by mouth. citalopram (CELEXA) 20 mg tablet Take 20 mg by mouth once daily. Aspirin 81 mg Tab Take 81 mg by mouth once daily. MULTIVITAMIN/IRON/FOLIC ACID (CENTRUM ULTRA WOMEN'S ORAL) Take by mouth once daily. No current facility-administered medications for this visit. ALLERGIES Allergen Reactions Sulfa (Sulfonamide * PAST MEDICAL HISTORY Diagnosis Date Postmenopausal atrophic vaginitis Stricture, urethra OLIVER (stress urinary incontinence, female) Urge incontinence UTI (urinary tract infection) PAST SURGICAL HISTORY Procedure Laterality Date COLONOSCOPY 12/2014 EXC CYST/ABERRANT BREAST TISSUE OPEN LESION 1995 R breast benign- lipomas by description GALLBLADDER/EF KNEE SURGERY HX bursis sac removed TONSILLECTOMY HX TUBAL LIGATION HX 1980 bilateral VAGINAL DELIVERY HX FAMILY HISTORY Problem Relation Age of Onset Colon Cancer Mother Diabetes Mother Colon Cancer Father other (Lung Cancer) Father other (Throat Cancer) Father Breast Cancer Maternal Aunt #1) 60 @ dx. living Alzheimer's Disease Maternal Aunt 60's @ dx. Living Breast Cancer Maternal Aunt #2) details unknown Social History Tobacco Use Smoking status: Never Smokeless tobacco: Never Substance Use Topics Alcohol use: Yes Comment: Social Drug use: No ACTIVE PROBLEM LIST Fibrocystic Breast Other Urethral Stricture, Female Urge Incontinence REVIEW OF SYSTEMS: REVIEW OF SYSTEMS GENERAL: No weight loss, malaise or fevers PHYSICAL EXAM: General Appearance: Well appearing, alert, in no acute distress, well-hydrated, well nourished.. FINDINGS AND PROCEDURE: The patient was placed in the lithotomy position. The genitalia area was prepped and draped and 2% Anestacon was was injected into the urethra. A 15 [place] female sound was gently introduced into the bladder. The urethra was sequentially gently dilated through 20 Pakistani. This was well tolerated by the patient and she was sent home with a single dose of an antibiotic. She is to call if she experiences any problems. PRESCRIPTION THIS VISIT: Orders Placed This Encounter UA DIP, URINE (POC) (The purpose of any medications prescribed on this visit, mode of administration, and side effects were discussed with the patient.) ASSESSMENT/PLAN: 1. Other urethral stricture, female - ICD9: 598.8, ICD10: N35.82 - f/u in 10 weeks. 2. Urge incontinence - ICD9: 788.31, ICD10: N39.41 Nikki Geller APRN.CNP documented in this encounterPark[facility] Miscellaneous Notes* Telephone Encounter - Nikki Geller APRN.CNP - 07/05/2022 10:18 AM EST 3x per week. * Telephone Encounter - Divya Campos MA - 07/05/2022 8:56 AM EST Pharmacy called requesting the following refill. Requested Prescriptions Pending Prescriptions Disp Refills estradiol (ESTRACE) 0.01 % (0.1 mg/gram) vaginal cream [Pharmacy Med Name: ESTRADIOL 0.01% CREAM] 42.5 g 3 Sig: USE 1 G VAGINALLY 3 TIMES WEEKLY Patient last appointment: 06/17/2022 Patient Phone numbers: [phone] (home) [phone] (work) Request is for script(s) to be escript to pharmacy. Divya campos MA documented in this encounterPark[facility]02-13-2023 Miscellaneous Notes* Telephone Encounter - Isra Car MA - 06/17/2022 1:08 PM EST Spoke with pharmacist message released * Telephone Encounter - Nikki Geller APRN.CNP - 06/17/2022 11:23 AM EST Please let pharmacy know it should be 3x per week. documented in this encounterParkview Health [facility]02-13-2023 Miscellaneous Notes* Telephone Encounter - Nikki Geller APRN.CNP - 06/17/2022 8:31 AM EST Never mind, I spoke with patient. * Telephone Encounter - Nikki Geller APRN.CNP - 06/17/2022 8:12 AM EST Patient is scheduled for urethral dilation in [place] today. I do not have dilators. Could someone please call her? Thanks documented in this encounterPark[facility]12-01-2022 History of Present illness Narrative* Nikki Geller APRN.CNP - 04/04/2022 12:00 PM EST 04/04/2022 PCP: DO Estella Menon is a 71 year old female who presents for an established patient visit. Patient with a history of urethral dilations. Occasional frequency and decreased stream but stable. FREQUENCY: she has frequency of urination. Abdominal Pain: None Fever: none Chills: No Dysuria: frequency Hematuria: None Nocturia: No Urgency: Usually No results found for: HB, HCT, WBC, PSA Current Outpatient Medications Medication Sig oxybutynin ER (DITROPAN XL) 10 mg 24 hr tablet Take by mouth. estradiol (ESTRACE) 0.01 % (0.1 mg/gram) vaginal cream APPLY 1 GRAM VAGINALLY TWO TIMES A WEEK. darifenacin ER (ENABLEX) 15 mg 24 hr tablet Take 1 tablet by mouth once daily. MELATONIN ORAL Take by mouth. CHOLECALCIFEROL, VITAMIN D3, (VITAMIN D3 ORAL) Take by mouth. L.ACID/L.CASEI/B.BIF/B.KWABENA/FOS (PROBIOTIC BLEND ORAL) Take by mouth. citalopram (CELEXA) 20 mg tablet Take 20 mg by mouth once daily. Aspirin 81 mg Tab Take 81 mg by mouth once daily. MULTIVITAMIN/IRON/FOLIC ACID (CENTRUM ULTRA WOMEN'S ORAL) Take by mouth once daily. No current facility-administered medications for this visit. ALLERGIES Allergen Reactions Sulfa (Sulfonamide * PAST MEDICAL HISTORY Diagnosis Date Postmenopausal atrophic vaginitis Stricture, urethra OLIVER (stress urinary incontinence, female) Urge incontinence UTI (urinary tract infection) PAST SURGICAL HISTORY Procedure Laterality Date COLONOSCOPY 12/2014 EXC CYST/ABERRANT BREAST TISSUE OPEN LESION 1995 R breast benign- lipomas by description GALLBLADDER/EF KNEE SURGERY HX bursis sac removed TONSILLECTOMY HX TUBAL LIGATION HX 1980 bilateral VAGINAL DELIVERY HX FAMILY HISTORY Problem Relation Age of Onset Colon Cancer Mother Diabetes Mother Colon Cancer Father other (Lung Cancer) Father other (Throat Cancer) Father Breast Cancer Maternal Aunt #1) 60 @ dx. living Alzheimer's Disease Maternal Aunt 60's @ dx. Living Breast Cancer Maternal Aunt #2) details unknown Social History Tobacco Use Smoking status: Never Smokeless tobacco: Never Substance Use Topics Alcohol use: Yes Comment: Social Drug use: No ACTIVE PROBLEM LIST Fibrocystic Breast Other Urethral Stricture, Female Urge Incontinence REVIEW OF SYSTEMS: REVIEW OF SYSTEMS GENERAL: No weight loss, malaise or fevers PHYSICAL EXAM: General Appearance: Well appearing, alert, in no acute distress, well-hydrated, well nourished.. FINDINGS AND PROCEDURE: The patient was placed in the lithotomy position. The genitalia area was prepped and draped and 2% Anestacon was was injected into the urethra. A 17 Pakistani [place] female sound was gently introduced into the bladder. The urethra was sequentially gently dilated through 30 Pakistani. This was well tolerated by the patient and she was sent home with a single dose of an antibiotic. She is to call if she experiences any problems. PRESCRIPTION THIS VISIT: Orders Placed This Encounter oxybutynin ER (DITROPAN XL) 10 mg 24 hr tablet Sig: Take by mouth. (The purpose of any medications prescribed on this visit, mode of administration, and side effects were discussed with the patient.) ASSESSMENT/PLAN: 1. Other urethral stricture, female - ICD9: 598.8, ICD10: N35.82 (primary diagnosis) 2. Urge incontinence - ICD9: 788.31, ICD10: N39.41 Nikki Geller APRN.ZOHAIB documented in this encounterParkview [facility]05-05-2022 History of Present illness Narrative* Nikki Geller APRN.CNP - 09/06/2021 8:48 AM EDT 09/06/2021 PCP: Jennifer Sewell DO, DO Nancy E McMillen is a 71 year old female who presents for an established patient visit. Patient with a history of urethral dilations. Occasional frequency and decreased stream but stable. FREQUENCY: she has frequency of urination. Abdominal Pain: None Fever: none Chills: No Dysuria: none Hematuria: None Nocturia: No Urgency: Usually No results found for: HB, HCT, WBC, PSA Current Outpatient Medications Medication Sig MELATONIN ORAL Take by mouth. darifenacin ER (ENABLEX) 15 mg 24 hr tablet TAKE 1 TABLET BY MOUTH EVERY DAY estradiol (ESTRACE) 0.01 % (0.1 mg/gram) vaginal cream Use 1 g vaginally two times a week. CHOLECALCIFEROL, VITAMIN D3, (VITAMIN D3 ORAL) Take by mouth. L.ACID/L.CASEI/B.BIF/B.KWABENA/FOS (PROBIOTIC BLEND ORAL) Take by mouth. citalopram (CELEXA) 20 mg tablet Take 20 mg by mouth once daily. Aspirin 81 mg Tab Take 81 mg by mouth once daily. MULTIVITAMIN/IRON/FOLIC ACID (CENTRUM ULTRA WOMEN'S ORAL) Take by mouth once daily. No current facility-administered medications for this visit. ALLERGIES Allergen Reactions Sulfa (Sulfonamide * PAST MEDICAL HISTORY Diagnosis Date Postmenopausal atrophic vaginitis Stricture, urethra OLIVER (stress urinary incontinence, female) Urge incontinence UTI (urinary tract infection) PAST SURGICAL HISTORY Procedure Laterality Date COLONOSCOPY 12/2014 EXC CYST/ABERRANT BREAST TISSUE OPEN LESION 1995 R breast benign- lipomas by description GALLBLADDER/EF KNEE SURGERY HX bursis sac removed TONSILLECTOMY HX TUBAL LIGATION HX 1980 bilateral VAGINAL DELIVERY HX FAMILY HISTORY Problem Relation Age of Onset Colon Cancer Mother Diabetes Mother Colon Cancer Father other (Lung Cancer) Father other (Throat Cancer) Father Breast Cancer Maternal Aunt #1) 60 @ dx. living Alzheimer's Disease Maternal Aunt 60's @ dx. Living Breast Cancer Maternal Aunt #2) details unknown Social History Tobacco Use Smoking status: Never Smoker Smokeless tobacco: Never Used Substance Use Topics Alcohol use: Yes Comment: Social Drug use: No ACTIVE PROBLEM LIST Fibrocystic Breast Other Urethral Stricture, Female Urge Incontinence REVIEW OF SYSTEMS: REVIEW OF SYSTEMS GENERAL: No weight loss, malaise or fevers PHYSICAL EXAM: General Appearance: Well appearing, alert, in no acute distress, well-hydrated, well nourished.. FINDINGS AND PROCEDURE: The patient was placed in the lithotomy position. The genitalia area was prepped and draped and 2% Anestacon was was injected into the urethra. A 15 [place] female sound was gently introduced into the bladder. The urethra was sequentially gently dilated through 30 Pakistani. This was well tolerated by the patient and she was sent home with a single dose of an antibiotic. She is to call if she experiences any problems. PRESCRIPTION THIS VISIT: Orders Placed This Encounter UA DIP, URINE (POC) (The purpose of any medications prescribed on this visit, mode of administration, and side effects were discussed with the patient.) ASSESSMENT/PLAN: 1. Other urethral stricture, female - ICD9: 598.8, ICD10: N35.82 2. Urge incontinence - ICD9: 788.31, ICD10: N39.41 Nikki Geller APRN.CNP documented in this encounterPark[facility]04-28-2022 Miscellaneous Notes* Telephone Encounter - Nikki Geller APRN.CNP - 08/30/2021 3:38 PM EDT Patient is scheduled for urethral dilation tomorrow in [place]. We do not have urethral dilators and the office there. She is going to have to be rescheduled for Friday if she can wait that long. documented in [facility]* Diagnosis Other urethral stricture, female- Primary Urge incontinence documented in this encounter [facility] noteNo assessment information availableWooster Community [facility] Work Phone: Evaluation note* Diagnosis Recurrent UTI Urinary tract infection, site not specified documented in this encounter [facility] note* Diagnosis Recurrent UTI Urinary tract infection, site not specified documented in this encounter [facility] note* Diagnosis Other urethral stricture, female- Primary Urge incontinence documented in this encounter [facility] note* Diagnosis Other urethral stricture, female- Primary Urge incontinence documented in this encounter [facility] note* Diagnosis Other urethral stricture, female documented in this encounter [facility] note* Diagnosis Other urethral stricture, female- Primary Urge incontinence Recurrent UTI Urinary tract infection, site not specified documented in this encounter [facility] note* Diagnosis Other urethral stricture, female- Primary Urge incontinence documented in this encounter [facility] note* Diagnosis Other urethral stricture, female documented in this encounter [facility] note* Diagnosis Other urethral stricture, female- Primary Urge incontinence documented in this encounter [facility] note* Diagnosis Other urethral stricture, female- Primary Recurrent UTI Urinary tract infection, site not specified documented in this encounter [facility] note* Diagnosis Other urethral stricture, female- Primary Urge incontinence documented in this encounter [facility] note* Diagnosis Other urethral stricture, female documented in this encounter [facility] note* Diagnosis Recurrent UTI- Primary Urinary tract infection, site not specified Other urethral stricture, female [facility] Additional Instructions Stay well-[facility]atedWAv[facility] Work Phone: Hospital Discharge instructions Additional Instructions You need to see plastic surgery. I would try calling [facility] plastic surgery at [phone] If you experience double vision or change in vision or having change in eye pain please return to emergency departmentWAv[facility] Work Phone: Reason for referral (narrative)No reason for referral information availableWAvita Health [facility] Work Phone: Summary Purpose Family History No Family History Records FoundNo Family History Records FoundNo Family History Records FoundNo Family History Records FoundNo Family History Records Found Advance Directives Advance Directive Response Recorded Date/ Time Advance Directives No April 10, 2015 7:58am Living Will No April 10 7:58am Power of Bulk Mail Technician No April 10, 2015 7:58am Advance Directive Response Recorded Date/ Time Advance Directives No April 10, 2015 8:58am Living Will No July 18, 2022 6:02pm Power of Bulk Mail Technician No July 18 6:02pm Advance Directive Response Recorded Date/ Time Advance Directives No April 10, 2015 7:58am Living Will No July 18, 2022 5:02pm Power of Bulk Mail Technician No July 18 5:02pm Advance Directive Response Recorded Date/ Time Name of Medical Power of Bulk Mail Technician MYRNA CORNEJO July 21, 2023 2:05pm Advance Directives No April 10, 2015 8:58am Living Will Yes July 21, 2023 2:05pm Power of Bulk Mail Technician Yes July 20 2:05pm Advance Directive Response Recorded Date/ Time Do you have a Healthcare Power of Bulk Mail Technician? Yes February 12, 2025 3:04pm Name of Medical Power of Bulk Mail Technician MYRNA JOSEPH February 12, 2025 3:04pm Advance Directives No April 10, 2015 8:58am Chief Complaint and Reason for Visit Chief Complaint SCREENING Chief Complaint SCREENING no order scanned in,pt will bring order PRE OP Chief Complaint SCREENING no order scanned in,pt will bring order PRE OP PRE OP Chief Complaint SCREENING no order scanned in,pt will bring order PRE OP PRE OP ETOH Chief Complaint SCREENING head inj Chief Complaint Admit Date knee February 12, 2025 2 :57pm Additional Source Comments INFORMATION SOURCE (unrecogn ized section and content) DATE CREATED AUTHOR 10/29/2017 [facility] DATE CREATED AUTHOR AUTHOR'S ORGANIZ ATION 08/03/2018 [facility] DATE CREATED AUTHOR AUTHOR'S ORGANIZ ATION 03/13/2024 [facility] DATE CREATED AUTHOR AUTHOR'S ORGANIZ ATION 02/23/2025 [facility] DATE CREATED AUTHOR AUTHOR'S ORGANIZ ATION 02/24/2025 [facility] Source Comments (unrecognize d section and content) In the event this informatio n is protected by the Federal Confidentiality of Alcohol and Drug Abuse Patient Records regulations: The Federal rules restrict any use of the information to criminally investigate or prosecute any alcohol or drug abuse patient.[facility] HospitalIn the event this information is protected by the Federal Confidentiality of Alcohol and Drug Abuse Patient Records regulations: The Federal rules restrict any use of the information to criminally investigate or prosecute any alcohol or drug abuse patient.[facility] HospitalIn the event this information is protected by the Federal Confidentiality of Alcohol and Drug Abuse Patient Records regulations: The Federal rules restrict any use of the information to criminally investigate or prosecute any alcohol or drug abuse patient.[facility] HospitalIn the event this information is protected by the Federal Confidentiality of Alcohol and Drug Abuse Patient Records regulations: The Federal rules restrict any use of the information to criminally investigate or prosecute any alcohol or drug abuse patient.[facility] HospitalIn the event this information is protected by the Federal Confidentiality of Alcohol and Drug Abuse Patient Records regulations: The Federal rules restrict any use of the information to criminally investigate or prosecute any alcohol or drug abuse patient.[facility] HospitalIn the event this information is protected by the Federal Confidentiality of Alcohol and Drug Abuse Patient Records regulations: The Federal rules restrict any use of the information to criminally investigate or prosecute any alcohol or drug abuse patient.[facility] HospitalIn the event this information is protected by the Federal Confidentiality of Alcohol and Drug Abuse Patient Records regulations: The Federal rules restrict any use of the information to criminally investigate or prosecute any alcohol or drug abuse patient.[facility] HospitalIn the event this information is protected by the Federal Confidentiality of Alcohol and Drug Abuse Patient Records regulations: The Federal rules restrict any use of the information to criminally investigate or prosecute any alcohol or drug abuse patient.[facility] HospitalIn the event this information is protected by the Federal Confidentiality of Alcohol and Drug Abuse Patient Records regulations: The Federal rules restrict any use of the information to criminally investigate or prosecute any alcohol or drug abuse patient.[facility] HospitalIn the event this information is protected by the Federal Confidentiality of Alcohol and Drug Abuse Patient Records regulations: The Federal rules restrict any use of the information to criminally investigate or prosecute any alcohol or drug abuse patient.[facility] HospitalIn the event this information is protected by the Federal Confidentiality of Alcohol and Drug Abuse Patient Records regulations: The Federal rules restrict any use of the information to criminally investigate or prosecute any alcohol or drug abuse patient.[facility] HospitalIn the event this information is protected by the Federal Confidentiality of Alcohol and Drug Abuse Patient Records regulations: The Federal rules restrict any use of the information to criminally investigate or prosecute any alcohol or drug abuse patient.[facility] HospitalIn the event this information is protected by the Federal Confidentiality of Alcohol and Drug Abuse Patient Records regulations: The Federal rules restrict any use of the information to criminally investigate or prosecute any alcohol or drug abuse patient.[facility] HospitalIn the event this information is protected by the Federal Confidentiality of Alcohol and Drug Abuse Patient Records regulations: The Federal rules restrict any use of the information to criminally investigate or prosecute any alcohol or drug abuse patient.[facility] HospitalIn the event this information is protected by the Federal Confidentiality of Alcohol and Drug Abuse Patient Records regulations: The Federal rules restrict any use of the information to criminally investigate or prosecute any alcohol or drug abuse patient.[facility] HospitalIn the event this information is protected by the Federal Confidentiality of Alcohol and Drug Abuse Patient Records regulations: The Federal rules restrict any use of the information to criminally investigate or prosecute any alcohol or drug abuse patient.[facility] HospitalIn the event this information is protected by the Federal Confidentiality of Alcohol and Drug Abuse Patient Records regulations: The Federal rules restrict any use of the information to criminally investigate or prosecute any alcohol or drug abuse patient.[facility] HospitalIn the event this information is protected by the Federal Confidentiality of Alcohol and Drug Abuse Patient Records regulations: The Federal rules restrict any use of the information to criminally investigate or prosecute any alcohol or drug abuse patient.[facility] HospitalIn the event this information is protected by the Federal Confidentiality of Alcohol and Drug Abuse Patient Records regulations: The Federal rules restrict any use of the information to criminally investigate or prosecute any alcohol or drug abuse patient.[facility] HospitalIn the event this information is protected by the Federal Confidentiality of Alcohol and Drug Abuse Patient Records regulations: The Federal rules restrict any use of the information to criminally investigate or prosecute any alcohol or drug abuse patient.[facility] HospitalIn the event this information is protected by the Federal Confidentiality of Alcohol and Drug Abuse Patient Records regulations: The Federal rules restrict any use of the information to criminally investigate or prosecute any alcohol or drug abuse patient.[facility] HospitalIn the event this information is protected by the Federal Confidentiality of Alcohol and Drug Abuse Patient Records regulations: The Federal rules restrict any use of the information to criminally investigate or prosecute any alcohol or drug abuse patient.[facility] Reason for Visit (unrecogniz ed section and content) Reason Comments Appointment Reason Comments Other urethral stricture, female Reason Comments Urethral Stricture Reason Comments Med Change Request Reason Comments Refill Request Reason Comments Dialation Reason Comments Results Reason Comments Follow Up dilation Reason Comments Follow Up Dilation Care Teams (unrecognized sec tion and content) Processing Lead Relationship Specialty Start Date End Date Jennifer Sewell DO PCP - [facility] Family Practice 06/26/15 Processing Lead Relationship Specialty Start Date End Date Jennifer Sewell DO PCP - General Family Practice 06/26/15 Processing Lead Relationship Specialty Start Date End Date Jennifer Sewell DO PCP - [facility] Family Medicine 06/26/15 Processing Lead Relationship Specialty Start Date End Date Jennifer Sewell DO PCP - [facility] Medicine 06/26/15 Team Status: Active Member Role Status Dates Dr. Jennifer Sewell DO Family Provider Active Dr. Jennifer Sewell DO Primary Care Provider Active Team Status: Inactive Member Role Status Dates Dr. Jennifer Sewell DO Primary Care Provider, Attending P rovider Active Team Status: Inactive Member Role Status Dates Dr. Jennifer Sewell DO Primary Care Provider Active Jennifer Sewell Attending Provider Active Team Status: Active Member Role Status Dates Dr. Jennifer Sewell DO Primary Care Provider, Attending P rovimaite Active Team Status: Active Member Role Status Dates Dr. Jennifer Sewell DO Primary Care Provider Active Dr. Pio Broderick DO Attending Provider, Referring Provider Active Processing Lead Relationship Specialty Start Date End Date Jennifer Sewell DO PCP - [facility] Medicine 06/26/15 Team Status: Active Member Role Status Dates Dr. Jennifer Sewell DO Primary Care Provider Active Dr. Xavier Maciel MD Attending Provider Active Dr. Pio Broderick DO Referring Provider Active Team Status: Inactive Member Role Status Dates Dr. Jennifer Sewell DO Primary Care Provider Active Jennifer Sewell OLS Attending Provider Active Team Status: Inactive Member Role Status Dates Dr. Jennifer Sewell DO Primary Care Provider Active Dr. Pio Broderick DO Attending Provider, Referring Provider Active Team Status: Inactive Member Role Status Dates Dr. Jennifer Sewell DO Primary Care Provider Active Dr. Jeison Campos MD Emergency Provider Active Processing Lead Relationship Specialty Start Date End Date Jennifer Sewell DO PCP [facility] Medicine 06/26/15 Processing Lead Relationship Specialty Start Date End Date Jennifer Sewell DO PCP [facility] Medicine 06/26/15 Team Status: Inactive Member Role Status Dates Dr. Jennifer Sewell DO Primary Care Provide r, Attending Provider, Referring Provider Active Team Status: Inactive Member Role Status Dates Dr. Jennifer Sewell DO Primary Care Provider Active Dr. Joon Cleveland DO Emergency Provider Active Processing Lead Relationship Specialty Start Date End Date Donato Jennifer Potts DO PCP - General Family Medicine 06/26/15 Processing Lead Relationship Specialty Start Date End Date DonatoJennifer DO PCP - General Family Medicine 06/26/15 Processing Lead Relationship Specialty Start Date End Date DonatoJennifer DO PCP - General Family Medicine 06/26/15 Processing Lead Relationship Specialty Start Date End Date DonatoJennifer DO PCP - General Family Medicine 06/26/15 Processing Lead Relationship Specialty Start Date End Date DonatoJennifer DO PCP - General Family Medicine 06/26/15 Processing Lead Relationship Specialty Start Date End Date GlennJennifer anton DO PCP - General Family Medicine 06/26/15 Processing Lead Relationship Specialty Start Date End Date Jennifer Sewell DO PCP - General Family Medicine 06/26/15 Processing Lead Relationship Specialty Start Date End Date GlennJennifer anton DO PCP - General Family Medicine 06/26/15 Team Status: Active Member Role/Relationship Status Dates Dr. Jennifer Sewell DO Primary care physician Active Team Status: Inactive Member Role/Relationship Status Dates Dr. Jennifer Sewell DO Primary care physician Active Start: February 12, 2025 End: February 12, 2025 Dr. Jose Howell DO Attending physician Active Start: February 12, 2025 End: February 12, 2025 Dr. Jose Howell DO Emergency Departm ent Physician Active Start: February 12, 2025 End: February 12, 2025 Goals (unrecognized section and content) Goals may be documented in a n alternate sectionGoals may be documented in an alternate sectionGoals may be documented in an alternate sectionGoals may be documented in an alternate sectionGoals may be documented in an alternate sectionGoals may be documented in an alternate sectionGoals may be documented in an alternate section FOR RECORDS PERTAINING TO PATIENTS WHO ARE OR HAVE BEEN ENROLLED IN A CHEMICAL DEPENDENCY/SUBSTANCEABUSE PROGRAM, SOME INFORMATION MAY BE OMITTED. This clinical summary was aggregated from multiple sources. Caution should be exercised in using it in the provision of clinical care. This summary normalizes information from multiple sources, and as a consequence, information in this document may materially change the coding, format and clinical context of patient data. In addition, data may be omitted in some cases. CLINICAL DECISIONS SHOULD BE BASED ON THE PRIMARY CLINICAL RECORDS. [employer] provides no warranty or guarantee of the accuracy or completeness of information in this document.
[2025-04-12 23:33] VITALS: BP 111/51; PULSE 86; RESP 18; TEMP 36.6; O2SAT 100
--- NOTE | 2025-04-12 23:50 | ED.RN ---
This RN was notified by the patient's daughter in law at bedside that the patient tore out her IV. This RN notified Dr. Tian, Dr. Tian at bedside to discuss the patient's plan of care. The patient and patient's family agreeable with the patient being discharged home with the patient's family. This RN went into the patient's room to discharge the patient and the patient started to yell, fuck you, fuck this, I ain't doing this shit, I am not going anywhere. The patient was not agreeable to VS. This RN had a discussion at length with the patient and the patient's family, in which the patient was then agreeable to leave with the patient's family. The patient was able to answer orienting questions appropriately and after the patient had a lengthy conversation with her son, the patient agreed to let this RN obtain VS and to leave with her family and be taken home.
== END 2025-04-12 23:49 | disposition home or self-care (01) ==
PROVIDERS: Emergency Provider Student in an Organized Health Care Education/Training Program; PCP Family Medicine; Visit Provider Student in an Organized Health Care Education/Training Program
DX: F10.129 Alcohol abuse with intoxication, unspecified (principal); E86.0 Dehydration; Y90.7 Blood alcohol level of 200-239 mg/100 ml
CPT/HCPCS: 80053; 82077; 82962; 85025; 93005; 96361; 96374; 96376; 99285; A4216; J2405